=== PATIENT | female | born 1930 | race Caucasian/White ===

== ENCOUNTER 2016-08-16 10:40 | Emergency (ER) | payer OTHER ==
[~2016-08-16] VITALS: Ht 167.6 cm; Wt 71.7 kg
[~2016-08-16 10:40] MED LIST: ACET-1256 PO; ALEN70TA4 PO; AMLO-110 PO; ASPI81TA28 PO; CHOL1000 PO; DIPH-437 PO; FLUO0.0566 TOP; FOLI1TAB7 PO; FURO-85 PO; HYDR-5688 PO; ONDA8TAB6 PO; OXYB10TA PO; VOLTAREN GEL TOP
[2016-08-16 10:50] VITALS: TEMP 36.6; Ht 167.6 cm; Wt 71.7 kg
[2016-08-16 11:30] VITALS: O2SAT 96
--- NOTE | 2016-08-16 11:34 | EMERGENCY ROOM VISIT NOTE ---
History Report prepared by Britni: Dean Dc Under the Supervision of: Dr. Brandon Her D.O. First contact with patient: 10:58 Chief Complaint: CONFUSION Stated Complaint: SWELLING, CONFUSION, BREATHING Nursing Triage Summary: pt reports her arthritis has flared up . daughter states legs are swollen and hot to touch. daughtere states mother told her this am had difficulty bretahing . pt denies now states was stuffed up. left shoulder pain with arthritis History of Present Illness The patient is a 86 year old female who presents to the Emergency Room with complaints of bilateral upper and lower extremity swelling starting a few days ago. The patient currently denies any pain. As per daughter, the patient's legs are hot to touch. She has a history of edema. The patient states that she has been taking her Lasix as prescribed but the daughter is unsure. The patient also reports a decreased frequency of urination. As per daughter, the patient started having some difficulty breathing this morning. The patient states that she has a runny nose and some nasal congestion. She denies any shortness of breath with lying down flat. She took 2 Tylenol pills today. She denies any changes in appetite. She reports increased tiredness but was awake all last night. The patient denies fever, headache, chest, pain, nausea, vomiting, diarrhea, or any other complaints. The patient has a history of dementia. Source of History: patient, family (daughter) Onset: a few days ago Position: other (bilateral upper and lower extremities) Symptom Intensity: No pain Quality: other (swelling) Associated Symptoms: + SOB, No chest pain, No fevers, No headache, No nausea , No vomiting Review of Systems See HPI for pertinent positives & negatives. A total of 10 systems reviewed and were otherwise negative. Past Medical & Surgical Medical Problems: (1) Dementia (2) HTN (hypertension) (3) Pernicious anemia (4) Rheumatoid arthritis Surgical Problems: (1) History of tonsillectomy (2) History of total left hip arthroplasty Family History Depression FHx: cancer Social History Smoking Status: Never Smoker Alcohol Use: none Drug Use: none Marital Status: Housing Status: lives alone Occupation Status: retired Current/Historical Medications Scheduled Acetaminophen/Diphenhydramine (Tylenol Pm), 1 TAB PO HS Alendronate Sodium (Fosamax), 1 TAB PO WK Amlodipine (Norvasc), 5 MG PO QAM Aspirin (Aspirin Ec), 81 MG PO QPM Cholecalciferol (Vitamin D3), 1 TAB PO QAM Docusate Sodium (Colace), 1 CAP PO BID Folic Acid (Folvite), 1 TAB PO QAM Furosemide (Lasix), 20 MG PO QAM Hydrocodone/Acetaminophen 5MG/325MG ([place] 5MG/325MG), 1 TABLET PO HS Oxybutynin Chloride Er (Ditropan Xl), 10 MG PO QAM Scheduled PRN Acetaminophen (Tylenol), 1,000 MG PO TID PRN for RN Ondansetron Hcl (Zofran), 8 MG PO Q8 PRN for Nausea Miscellaneous Medications Diclofenac Sodium (Topical) (Voltaren 1% Top Gel), 1 DOSE TOP Allergies Coded Allergies: Diphenhydramine (Verified Adverse Reaction, Unknown, "increases dementia" , 08/16/16) Physical Exam Vital Signs Date Time Temp Pulse Resp B/P Pulse Ox O2 Delivery O2 Flow Rate FiO2 08/16/16 13:59 89 18 144/82 94 Room Air 08/16/16 13:23 70 18 166/76 93 Room Air 08/16/16 12:49 68 18 175/86 96 Room Air 08/16/16 12:01 73 08/16/16 11:30 96 Room Air 08/16/16 10:50 36.6 73 18 156/77 93 Room Air Physical Exam GENERAL: Patient is awake, alert, and in no acute distress. Patient is resting comfortably and showing no signs of anxiety EYES: The conjunctivae are clear. The pupils are round and reactive. EARS, NOSE, MOUTH AND THROAT: The nose is without any evidence of any deformity. Mucous membranes are moist tongue is midline NECK: The neck is nontender and supple. RESPIRATORY: Lung sounds are diminished with rales at both bases, no tachypnea or conversational dyspnea appreciated. CARDIOVASCULAR: Regular rate and rhythm noted there no murmurs rubs or gallops normal S1 normal S2 GASTROINTESTINAL: The abdomen is soft. Bowel sounds are present in all quadrants. Abdomen is nontender MUSCULOSKELETAL/EXTREMITIES: There is no evidence of gross deformity full range of motion is noted in the hips and shoulders SKIN: There is no obvious evidence of any rash. There are no petechiae, pallor or cyanosis noted. Pedal edema bilaterally. No erythema, calf tenderness, or signs of cellulitis noted. NEUROLOGIC: Patient is awake alert and oriented to person, place, and situation , strength is symmetric patellar reflexes are 2+ bilaterally Medical Decision & Procedures ER Provider Diagnostic Interpretation: X-ray results as stated below per interpretation by me and the radiologist. LEFT HAND 3 VIEWS CLINICAL HISTORY: Left hand swelling. FINDINGS: 3 views of the left hand are compared to study dated . The skeletal structures are osteopenic. A ring is present on the fourth finger. No fracture is identified. Advanced arthritic change is present at the radiocarpal articulation and throughout the intercarpal and carpometacarpal joints. This is greatest in the first digit. Mild osteoarthritic change is present in the interphalangeal joints with minimal erosive change present in the distal interphalangeal joints of the second through fourth fingers. A bony erosion is identified in the first metacarpal head. Diffuse soft tissue edema is present throughout the hand. No radiodense foreign body is identified. No subcutaneous gas is seen. IMPRESSION: 1. Diffuse soft tissue edema. No acute fracture is identified. 2. Osteopenia and advanced arthritic change as above with foci of erosion. This is similar in appearance to the 09/01/2015 examination. Electronically signed by: Bhavesh Shannon M.D. 08/16/2016 12:51 PM Dictated Date/Time: 08/16/2016 12:48 PM CHEST ONE VIEW PORTABLE CLINICAL HISTORY: Dyspnea. Respiratory distress. COMPARISON STUDY: Chest radiograph June 18, 2016. FINDINGS: No pneumothorax or pleural effusion is present. Cardiomediastinal silhouette is stable. Minimal bibasilar opacities favor atelectasis. There is no radiographic evidence of pulmonary edema. IMPRESSION: Pulmonary vascular congestion without overt pulmonary edema. Electronically signed by: Lex Franco M.D. 08/16/2016 12:48 PM Dictated Date/Time: 08/16/2016 12:46 PM Laboratory Results 08/16/16 11:42 Red Blood Count 3.59, Mean Corpuscular Volume 90.8, Mean Corpuscular Hemoglobin 27.9, Mean Corpuscular Hemoglobin Concent 30.7, Mean Platelet Volume 8.6, Neutrophils (%) (Auto) 62.7, Lymphocytes (%) (Auto) 19.5, Monocytes (%) (Auto) 12.3, Eosinophils (%) (Auto) 4.7, Basophils (%) (Auto) 0.7, Neutrophils # (Auto ) 4.65, Lymphocytes # (Auto) 1.45, Monocytes # (Auto) 0.91, Eosinophils # (Auto ) 0.35, Basophils # (Auto) 0.05 08/16/16 11:42 Test 08/16/16 11:42 08/16/16 12:45 White Blood Count 7.42 K/uL (4.8-10.8) Red Blood Count 3.59 M/uL (4.2-5.4) Hemoglobin 10.0 g/dL (12.0-16.0) Hematocrit 32.6 % (37-47) Mean Corpuscular Volume 90.8 fL (80-100) Mean Corpuscular Hemoglobin 27.9 pg (25-34) Mean Corpuscular Hemoglobin Concent 30.7 g/dl (32-36) Platelet Count 364 K/uL (130-400) Mean Platelet Volume 8.6 fL (7.4-10.4) Neutrophils (%) (Auto) 62.7 % Lymphocytes (%) (Auto) 19.5 % Monocytes (%) (Auto) 12.3 % Eosinophils (%) (Auto) 4.7 % Basophils (%) (Auto) 0.7 % Neutrophils # (Auto) 4.65 K/uL (1.4-6.5) Lymphocytes # (Auto) 1.45 K/uL (1.2-3.4) Monocytes # (Auto) 0.91 K/uL (0.11-0.59) Eosinophils # (Auto) 0.35 K/uL (0-0.5) Basophils # (Auto) 0.05 K/uL (0-0.2) RDW Standard Deviation 46.1 fL (36.4-46.3) RDW Coefficient of Variation 13.8 % (11.5-14.5) Immature Granulocyte % (Auto) 0.1 % Immature Granulocyte # (Auto) 0.01 K/uL (0.00-0.02) Prothrombin Time 10.8 SECONDS (9.0-12.0) Prothromb Time International Ratio 1.0 (0.9-1.1) Activated Partial Thromboplast Time 28.7 SECONDS (21.0-31.0) Partial Thromboplastin Ratio 1.1 Anion Gap 8.0 mmol/L (3-11) Est Creatinine Clear Calc Drug Dose 59.1 ml/min Estimated GFR () 91.2 Estimated GFR (Non- 78.6 BUN/Creatinine Ratio 20.6 (10-20) Calcium Level 8.9 mg/dl (8.5-10.1) Total Bilirubin 0.2 mg/dl (0.2-1) Aspartate Amino Transf (AST/SGOT) 11 U/L (15-37) Alanine Aminotransferase (ALT/SGPT) 13 U/L (12-78) Alkaline Phosphatase 82 U/L (45-117) Troponin I < 0.015 ng/ml (0-0.045) Pro-B-Type Natriuretic Peptide 666 pg/ml (0-1800) Total Protein 6.8 gm/dl (6.4-8.2) Albumin 2.6 gm/dl (3.4-5.0) Globulin 4.2 gm/dl (2.5-4.0) Albumin/Globulin Ratio 0.6 (0.9-2) Urine Color YELLOW Urine Appearance CLEAR (CLEAR) Urine pH 6.5 (4.5-7.5) Urine Specific [place] 1.003 (1.000-1.030) Urine Protein NEG (NEG) Urine Glucose (UA) NEG (NEG) Urine Ketones NEG (NEG) Urine Occult Blood NEG (NEG) Urine Nitrite NEG (NEG) Urine Bilirubin NEG (NEG) Urine Urobilinogen NEG (NEG) Urine Leukocyte Esterase NEG (NEG) Laboratory results per my review. Medications Administered Medications (Trade) Dose Ordered Sig/Ralph Route Start Time Stop Time Status Last Admin Dose Admin Furosemide (Lasix Inj) 40 mg NOW STAT IV 08/16/16 13:07 08/16/16 13:08 DC 08/16/16 13:22 40 MG ECG Indication: SOB/dyspnea, other (Bilateral upper and lower extremity swelling) Rate (beats per minute): 68 Rhythm: normal sinus Findings: no ectopy, other (No acute ST segment abnormalities) Comparison ECG Date: June 17, 2016 Change: no significant change ED Course 1058: The patient was evaluated in room C12B. A complete history and physical examination were performed. 1307: Lasix Inj 40 mg IV 1345: Upon reevaluation, the patient is resting comfortably. I discussed the results and treatment plan with the patient and her daughter. They verbalized agreement of the treatment plan. She was discharged home. Medical Decision Prior records/ancillary studies reviewed. Triage Nursing notes reviewed. Additional history obtained from the family. Differential diagnosis: Etiologies such as infections, reactive airway disease, pneumonia, pneumothorax , COPD, CHF, cardiac ischemia, pulmonary embolism, musculoskeletal, gastrointestinal, as well as others were entertained. The patient is an 86-year-old female who presents to the emergency department for an evaluation of peripheral edema. This involves her legs as well as her upper extremities. Her left arm appears to be involved but there is no discoloration or tenderness. The patient was treated with IV Lasix in the emergency department. I discussed the patient's laboratory radiographic studies with her. She is currently on Lasix and states that she is compliant with this medication. I discussed the patient's condition with her and her daughter. They were encouraged to follow-up with the primary care physician this week for reevaluation. They were encouraged to rest and avoid any strenuous activity. There are also encouraged to return the emergency Department immediately if symptoms change worsen or the need arises. Impression Primary Impression: Peripheral edema Scribe Attestation The scribe's documentation has been prepared under my direction and personally reviewed by me in its entirety. I confirm that the note above accurately reflects all work, treatment, procedures, and medical decision making performed by me. Departure Information Dispostion Home / Self-Care Referrals Moose Wood M.D. (MEDICAL) (PCP) Forms HOME CARE DOCUMENTATION FORM, IMPORTANT VISIT INFORMATION, WORK / SCHOOL INSTRUCTIONS Patient Instructions ED Leg Swelling Bilateral, My [facility] [address] Additional Instructions Call your family to schedule a follow-up appointment. Rest and avoid any strenuous activity. Continue all medications as prescribed. You may require an echocardiogram to further evaluate the cause of your edema.
[2016-08-16] MEDS ORDERED: DICL1GEL12 TOP (11:57)
[2016-08-16] MEDS ORDERED: DOCU-94 PO (11:58)
[2016-08-16 12:09] LABS: BASO % 0.7 %; BASO ABS # 0.05 K/uL (0-0.2); COMPLETE YES; EOS % 4.7 %; HEMATOCRIT 32.6 % (37-47); IG% 0.1 %; LYMPH % 19.5 %; LYMPH ABS # 1.45 K/uL (1.2-3.4); MEAN CELL VOLUME 90.8 fL (80-100); MEAN CORPUSCULAR HEMOGLOBIN 27.9 pg (25-34); MEAN CORPUSCULAR HGB CONC 30.7 g/dl (32-36); MEAN PLATELET VOLUME 8.6 fL (7.4-10.4); MONO % 12.3 %; NEUT % 62.7 %; PLATELET COUNT 364 K/uL (130-400); RED BLOOD COUNT 3.59 M/uL (4.2-5.4); WHITE BLOOD COUNT 7.42 K/uL (4.8-10.8)
[2016-08-16 12:12] LABS: PARTIAL THROMBOPLASTIN RATIO 1.1; PROTHROMBIN TIME (PATIENT) 10.8 SECONDS (9.0-12.0)
[2016-08-16 12:15] LABS: ALT/SGPT 13 U/L (12-78); AST/SGOT 11 U/L (15-37); BLOOD UREA NITROGEN 14 mg/dl (7-18); BUN/CREATININE RATIO 20.6 (10-20); CALCIUM 8.9 mg/dl (8.5-10.1); CARBON DIOXIDE 27 mmol/L (21-32); CHLORIDE 103 mmol/L (98-107); CREATININE 0.68 mg/dl (0.60-1.20); GLUCOSE 97 mg/dl (70-99); POTASSIUM 4.5 mmol/L (3.5-5.1); SODIUM 138 mmol/L (136-145)
[2016-08-16 12:20] LABS: ALB/GLOB RATIO 0.6 (0.9-2); ALKALINE PHOSPHATASE 82 U/L (45-117)
--- NOTE | 2016-08-16 12:49 | DIAGNOSTIC IMAGING REPORT ---
CHEST ONE VIEW PORTABLE CLINICAL HISTORY: Dyspnea. Respiratory distress. COMPARISON STUDY: Chest radiograph June 18, 2016. FINDINGS: No pneumothorax or pleural effusion is present. Cardiomediastinal silhouette is stable. Minimal bibasilar opacities favor atelectasis. There is no radiographic evidence of pulmonary edema. IMPRESSION: Pulmonary vascular congestion without overt pulmonary edema. Electronically signed by: Lex Franco M.D. 08/16/2016 12:48 PM Dictated Date/Time: 08/16/2016 12:46 PM
--- NOTE | 2016-08-16 12:53 | DIAGNOSTIC IMAGING REPORT ---
LEFT HAND 3 VIEWS CLINICAL HISTORY: Left hand swelling. FINDINGS: 3 views of the left hand are compared to study dated . The skeletal structures are osteopenic. A ring is present on the fourth finger. No fracture is identified. Advanced arthritic change is present at the radiocarpal articulation and throughout the intercarpal and carpometacarpal joints. This is greatest in the first digit. Mild osteoarthritic change is present in the interphalangeal joints with minimal erosive change present in the distal interphalangeal joints of the second through fourth fingers. A bony erosion is identified in the first metacarpal head. Diffuse soft tissue edema is present throughout the hand. No radiodense foreign body is identified. No subcutaneous gas is seen. IMPRESSION: 1. Diffuse soft tissue edema. No acute fracture is identified. 2. Osteopenia and advanced arthritic change as above with foci of erosion. This is similar in appearance to the 09/01/2015 examination. Electronically signed by: Bhavesh Shannon M.D. 08/16/2016 12:51 PM Dictated Date/Time: 08/16/2016 12:48 PM
[2016-08-16] MEDS ORDERED: FUROSEMIDE 40 MG/4 ML VIAL IV STA (13:07)
[2016-08-16 13:22] LABS: URINE APPEARANCE CLEAR (CLEAR); URINE BILIRUBIN NEG (NEG); URINE COLOR YELLOW; URINE NITRITE NEG (NEG); URINE PH 6.5 (4.5-7.5); URINE SPECIFIC GRAVITY 1.003 (1.000-1.030); UROBILINOGEN NEG (NEG)
[2016-08-16 13:31] LABS: MANUAL MICROSCOPIC REQUIRED? NO; REVIEW REQ? NO
[2016-08-16 13:59] VITALS: BP 144/82; PULSE 89; O2SAT 94
[2017-01-26] MEDS ORDERED: ONDA8TAB13 SL (13:43)
[2017-01-26] MEDS ORDERED: FURO-85 PO (13:43)
[2017-01-26] MEDS ORDERED: GLUC1CAP35 PO (13:43)
[2017-01-30] MEDS ORDERED: MLXESC PO (10:18)
[2017-01-30] MEDS ORDERED: LPT20 PO (10:18)
[2017-01-30] MEDS ORDERED: MOMLX PO (10:18)
[2017-01-30] MEDS ORDERED: HYDR-5688 PO ×2 (10:18→10:21)
[2017-01-30] MEDS ORDERED: PLV75 PO (10:18)
[2017-01-30] MEDS ORDERED: DLC5 PO (10:18)
== END 2016-08-16 14:01 | disposition home or self-care (01) ==
LOC: C.EDB 10:41 → C.EDC 14:01
DX: R60.0 Localized edema (principal); F03.90 Unspecified dementia, unspecified severity, without behavioral disturbance, psychotic disturbance, mood disturbance, and anxiety; I10 Essential (primary) hypertension; D51.0 Vitamin B12 deficiency anemia due to intrinsic factor deficiency; M06.9 Rheumatoid arthritis, unspecified; Z79.82 Long term (current) use of aspirin

== ENCOUNTER 2017-01-26 10:48 | Inpatient (IN) | payer OTHER ==
[~2017-01-26] VITALS: Ht 172.7 cm; Wt 65.3 kg
[~2017-01-26 10:48] MED LIST changes: +DICL1GEL12 TOP; +DOCU-94 PO; -FLUO0.0566 TOP; -ONDA8TAB6 PO; -VOLTAREN GEL TOP
[2017-01-26] MEDS ORDERED: SODIUM CHLORIDE 0.9% 1000ML 1,000 ML IV STA (11:45)
[2017-01-26 12:22] LABS: BASO % 0.5 %; BASO ABS # 0.05 K/uL (0-0.2); COMPLETE YES; EOS % 3.3 %; HEMATOCRIT 33.2 % (37-47); IG% 0.3 %; LYMPH % 12.1 %; LYMPH ABS # 1.18 K/uL (1.2-3.4); MEAN CELL VOLUME 88.3 fL (80-100); MEAN CORPUSCULAR HEMOGLOBIN 27.1 pg (25-34); MEAN CORPUSCULAR HGB CONC 30.7 g/dl (32-36); MEAN PLATELET VOLUME 8.3 fL (7.4-10.4); MONO % 12.2 %; NEUT % 71.6 %; PLATELET COUNT 527 K/uL (130-400); RED BLOOD COUNT 3.76 M/uL (4.2-5.4); WHITE BLOOD COUNT 9.75 K/uL (4.8-10.8)
--- NOTE | 2017-01-26 12:43 | DIAGNOSTIC IMAGING REPORT ---
HEAD WITHOUT CONTRAST (CT) CT DOSE: 614.27 mGy.cm HISTORY: Mental status change EVALUATE WEAKNESS TECHNIQUE: Multiaxial CT images of the head were performed without the use of intravenous contrast. A dose lowering technique was utilized adhering to the principles of ALARA. Comparison: 01/16/2015 Findings: The paranasal sinuses and mastoid air cells are clear. Persistent ventricular prominence. This is unchanged from the prior exam is considered chronic. Possible small subacute infarct posterior aspect left internal capsule. This measures approximately 1 cm. No evidence for acute intracranial hemorrhage. Chronic small vessel change throughout. Impression: 1. 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 Moderate chronic small vessel change. Chronic ventricular prominence. 2. No evidence for acute intracranial hemorrhage The above report was generated using voice recognition software. It may contain grammatical, syntax or spelling errors. Electronically signed by: Vitor Valdes M.D. 01/26/2017 12:41 PM Dictated Date/Time: 01/26/2017 12:38 PM
--- NOTE | 2017-01-26 12:44 | DIAGNOSTIC IMAGING REPORT ---
CHEST ONE VIEW PORTABLE CLINICAL HISTORY: EVALUATE WEAKNESS dyspnea COMPARISON STUDY: 08/16/2016 FINDINGS: The bones soft tissues and hemidiaphragms are normal. The cardiomediastinal silhouette is normal. The lungs are clear. The pulmonary vasculature is normal. IMPRESSION: Negative chest. The above report was generated using voice recognition software. It may contain grammatical, syntax or spelling errors. Electronically signed by: Vitor Valdes M.D. 01/26/2017 12:43 PM Dictated Date/Time: 01/26/2017 12:42 PM
[2017-01-26 12:45] LABS: ALKALINE PHOSPHATASE 88 U/L (45-117); ALT/SGPT 8 U/L (12-78); AST/SGOT 13 U/L (15-37); BLOOD UREA NITROGEN 19 mg/dl (7-18); BUN/CREATININE RATIO 27.7 (10-20); CALCIUM 9.5 mg/dl (8.5-10.1); CARBON DIOXIDE 28 mmol/L (21-32); CHLORIDE 106 mmol/L (98-107); GLUCOSE 99 mg/dl (70-99); POTASSIUM 4.4 mmol/L (3.5-5.1); SODIUM 141 mmol/L (136-145)
[2017-01-26 13:23] LABS: INR 1.1 (0.9-1.1); PARTIAL THROMBOPLASTIN RATIO 1.2; PROTHROMBIN TIME (PATIENT) 11.5 SECONDS (9.0-12.0)
[2017-01-26] MEDS ORDERED: ONDA8TAB13 SL ×2 (13:43)
[2017-01-26] MEDS ORDERED: GLUC1CAP35 PO ×2 (13:43)
[2017-01-26] MEDS ORDERED: FURO-85 PO ×2 (13:43)
[2017-01-26] MEDS ORDERED: ONDANSETRON INJ 2 MG/ML 2 ML VIAL IV PRN (13:45)
[2017-01-26] MEDS ORDERED: PHARMACIST DISCHARGE MED REC CONSULT PRN (13:45)
[2017-01-26] MEDS ORDERED: MAGNESIUM HYDROXIDE SUSP 30 ML UDC PO PRN (13:45)
[2017-01-26] MEDS ORDERED: ALUMINUM/MAGNESIUM/SIMETH (MAALOX MAX) 30 ML UDC PO PRN (13:45)
[2017-01-26] MEDS ORDERED: CLOPIDOGREL BISULFATE 75 MG TAB PO SCH (13:45)
[2017-01-26] MEDS ORDERED: NITROGLYCERIN 0.4 MG SL PER TAB CHARGE SL PRN (13:45)
[2017-01-26] MEDS ORDERED: ACETAMINOPHEN 325 MG TAB PO PRN (13:45)
[2017-01-26] MEDS ORDERED: ONDANSETRON 8MG OD TAB SL PRN (14:00)
[2017-01-26] MEDS ORDERED: FUROSEMIDE 20 MG TAB PO PRN (14:00)
[2017-01-26] MEDS ORDERED: ACETAMINOPHEN 500 MG TAB PO PRN (14:00)
[2017-01-26 14:15] VITALS: BP 161/71; PULSE 80; TEMP 36.8; O2SAT 97; Ht 172.7 cm; Wt 65.3 kg
--- NOTE | 2017-01-26 14:40 | HISTORY & PHYSICAL EXAMINATION ---
DATE OF ADMISSION: 01/26/2017 CHIEF COMPLAINT: Fall. HISTORY OF PRESENT ILLNESS: This 86-year-old female with past medical history significant for some vascular dementia, hypertension, history of squamous cell carcinoma, history of vitamin D deficiency, rheumatoid arthritis involving multiple sites, osteoarthritis who lives alone but has a total of 5 caregivers and son lives close by. Only a couple of nights in a week she does not have any caregiver,.Patient was brought in because today morning she fell down and had some bruises on the right shoulder. In the ER, the CAT scan showed small subacute left post-internal capsular infarct. The patient currently alert and awake and oriented x2. Does not know the date. Otherwise, she is comfortable. Denies any headaches, no blurred vision, no dizziness, no nausea, no vomiting, no chest pain, no shortness of breath, no cough, no abdominal pain. Normal bowel and bladder movements. Appetite is not that great. As per the caregivers, the patient lost a lot of weight since last 2 weeks as she is n ot eating much. Patient uses cane for ambulating and as per the caregiver she is very wobbly. Currently resting comfortably and hemodynamically stable. ALLERGIES: No known drug allergies. PAST MEDICAL HISTORY: As mentioned above. PAST SURGICAL HISTORY: Dilatation and curettage, tonsillectomy, total hip replacement in 2016. MEDICATIONS: The patient is on Ditropan XL 10 mg p.o. daily, glucosamine chondroitin 1 capsule p.o. t.i.d., Lasix 20 mg every other day p.r.n., folic acid 1 mg p.o. daily, diclofenac sodium gel 1% gel daily on shoulders as needed, amlodipine 5 mg p.o. daily, aspirin enteric coated 81 mg p.o. daily, Zofran 8 mg p.o. t.i.d. p.r.n., Fosamax 70 mg p.o. weekly, vitamin D 1000 units p.o. daily, acetaminophen 1000 mg p.o. q. 6 hours p.r.n., Percocet 5/325 mg 1 tablet t.i.d. FAMILY HISTORY: Her father of old age at 90s. Mother of old age 90s. SOCIAL HISTORY: Never smoked. No alcohol use. No drug use. . REVIEW OF SYMPTOMS: As per HPI. Rest of review of symptoms negative. PHYSICAL EXAMINATION: GENERAL: The patient is old and frail, not in distress. VITAL SIGNS: Temperature 36.7, pulse 74, respiratory rate 18, blood pressure 155/90, oxygen 92% room air. HEAD, EYES, EARS, NOSE, AND THROAT: No pallor, no icterus. Pupils equal, round, and reactive to light. NECK: No JVD, no neck masses, no carotid bruits. CARDIOVASCULAR: S1, S2 heard, regular rate and rhythm, no murmur, no gallop. RESPIRATORY SYSTEM: Normal AP diameter. No accessory muscle use. No wheezing, no crackles. ABDOMEN: Soft, bowel sounds present, nontender. No distention. CENTRAL NERVOUS SYSTEM: Cranial nerves II-XII grossly intact. Nonfocal. [id number] test normal. Could not do pronator drift as patient could not lift her hands because of the shoulder pain. EXTREMITIES: Lower extremity edema is present and slightly erythematous. LABORATORY DATA: Sodium 141, potassium 4.4, chloride 106, bicarbonate 28, BUN 19, creatinine 0.7, serum glucose 99, calcium 9.5, total bilirubin 0.2, AST 13, ALT 8, alkaline phosphatase 88. WBC 9.7, hemoglobin 10.2, hematocrit 33.2, platelets 527. CAT scan of the head shows probable acute versus subacute infarct left posterior internal capsule, moderate chronic small vessel change, chronic ventricular prominence. Chest x-ray negative chest. EKG: Shows normal sinus rhythm with rate of 74. No acute ST changes seen. ASSESSMENT AND PLAN: This is an 86-year-old female who presents with fall and possible cerebrovascular accident. 1. Fall, possible acute subacute left posterior intercapsular cerebrovascular accident. Currently, the patient is stable. We will do full stroke workup with MRI of the head, echo, carotid Dopplers. Neuro checks. Neurology consult. PT, OT and speech evaluation. We will place on mechanical soft diet for now and gentle fluids. The patient is already on aspirin. We will add Plavix. Close monitor on tele floor. 2. History of hypertension. Goal below 150/90. Continue amlodipine. We will monitor the blood pressure in the hospital. 3. History of rheumatoid arthritis involving multiple sites. and History of osteoarthritis. Continue home pain medications. PT, OT. The patient may need rehab placement. 4. Bilateral lower extremity edema. Follow the echocardiogram. The patient is on Lasix every other day as needed, currently on gentle fluids. Monitor for volume overload. The patient was also treated for cellulitis in the past. We will empirically start on Rocephin and also follow the urinalysis and urine cultures. 5. Deep venous thrombosis prophylaxis, SCDs for now. 6. Disposition. Admit to tele floor. PT and OT prior to discharge. Social Service to help with discharge planning. 7. CODE STATUS. FULL CODE ONLY IF THERE IS A CHANCE OF RECOVERY. Son Homero is her power of building construction contractor. His phone number is [phone]. [facility] [facility]
--- NOTE | 2017-01-26 15:15 | DIAGNOSTIC IMAGING REPORT ---
THORACIC SPINE 3 VIEWS ROUTINE CLINICAL HISTORY: Mid t spine bruising on left lat. COMPARISON STUDY: Chest CT October 29, 2014. FINDINGS: There is mild S-shaped curvature of the thoracic spine. No acute thoracic spine fracture is identified. There is moderate multilevel disc space narrowing and osteophytosis of the thoracic spine. IMPRESSION: 1. No acute thoracic spine fracture. 2. Mild S-shaped curvature of the thoracic spine. 3. 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 Electronically signed by: Lex Franco M.D. 01/26/2017 3:13 PM Dictated Date/Time: 01/26/2017 3:09 PM
--- NOTE | 2017-01-26 15:39 | DIAGNOSTIC IMAGING REPORT ---
CAROTID DOPPLER NECK ART HISTORY: Mental status change Stroke COMPARISON: None. TECHNIQUE: Real-time, grayscale, and color Doppler sonography of the carotid arteries was performed. Imaging reviewed in the transverse and longitudinal planes. All measurements were calculated based on NASCET criteria. FINDINGS: Antegrade flow is seen in the bilateral vertebral arteries. The brachial pressures are hemodynamically similar. The peak systolic velocity within the right ICA is 97. The right systolic ratio is 1.49. The peak systolic velocity within the left ICA is 101. The left systolic ratio is 1.23. IMPRESSION: No hemodynamically significant stenosis seen within the carotid arteries. The above report was generated using voice recognition software. It may contain grammatical, syntax or spelling errors. Electronically signed by: Vitor Valdes M.D. 01/26/2017 3:38 PM Dictated Date/Time: 01/26/2017 3:37 PM
--- NOTE | 2017-01-26 15:52 | DIAGNOSTIC IMAGING REPORT ---
LEFT LOWER EXTREMITY VENOUS DOPPLER CLINICAL HISTORY: Left lower extremity swelling. COMPARISON STUDY: Bilateral lower extremity venous Doppler June 17, 2016. TECHNIQUE: Sonography of the deep venous system of the left lower extremity was performed. Compression and augmentation were evaluated. FINDINGS: The left common femoral, superficial femoral and popliteal veins were compressible. Augmentation was normal. Flow was shown within the deep calf vessels. IMPRESSION: No evidence of deep venous thrombus within the left lower extremity. Electronically signed by: Lex Franco M.D. 01/26/2017 3:51 PM Dictated Date/Time: 01/26/2017 3:50 PM
[2017-01-26] MEDS ORDERED: CEFTRIAXONE SOD INJ 1 GM in DEXTROSE 5% ADD-VANTAGE 50ML 50 ML IV SCH (16:30)
[2017-01-26] MEDS: HYDROCODONE/ACETAMOPHEN 5/325MG TAB PO SCH ×2 (16:57→20:38)
[2017-01-26] MEDS: SODIUM CHLORIDE 0.9% 1000ML 1,000 ML IV SCH (16:57)
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
[2017-01-26 19:12] VITALS: BP 152/98; PULSE 78; TEMP 36.7; O2SAT 96
[2017-01-26 20:00] VITALS: O2SAT 96
[2017-01-26] MEDS: GLUCOSAMINE SULFATE 500 MG CAP PO SCH (20:36)
[2017-01-26] MEDS: ASPIRIN 81 MG ECTAB PO SCH (20:36)
--- NOTE | 2017-01-26 22:17 | DIAGNOSTIC IMAGING REPORT ---
ORBIT RADIOGRAPHS 3 VIEWS HISTORY: pre-MRI screening. COMPARISON: None. FINDINGS: There are no radiopaque foreign bodies identified within the orbits. IMPRESSION: No radiopaque foreign bodies identified within the orbits. Electronically signed by: Keith Aldana M.D. 01/26/2017 10:15 PM Dictated Date/Time: 01/26/2017 10:15 PM
[2017-01-26 23:14] VITALS: BP_SYST 107; BP_SYST 151; BP_DIAS 54; BP_DIAS 69; PULSE 61; PULSE 72; TEMP 36.4; TEMP 36.7; O2SAT 94; O2SAT 95
[2017-01-27] MEDS: SODIUM CHLORIDE 0.9% 1000ML 1,000 ML IV SCH ×2 (03:25→20:47)
[2017-01-27 03:27] LABS: HEMATOCRIT 32.8 % (37-47); MEAN CELL VOLUME 87.7 fL (80-100); MEAN CORPUSCULAR HEMOGLOBIN 26.7 pg (25-34); MEAN CORPUSCULAR HGB CONC 30.5 g/dl (32-36); MEAN PLATELET VOLUME 7.9 fL (7.4-10.4); PLATELET COUNT 459 K/uL (130-400); RED BLOOD COUNT 3.74 M/uL (4.2-5.4); WHITE BLOOD COUNT 8.35 K/uL (4.8-10.8)
[2017-01-27 03:45] VITALS: BP 161/76; PULSE 74; TEMP 36.8; O2SAT 95
[2017-01-27 03:51] LABS: BASO % 0.5 %; BASO ABS # 0.04 K/uL (0-0.2); COMPLETE YES; IG% 0.2 %; LYMPH % 12.6 %; LYMPH ABS # 1.05 K/uL (1.2-3.4); MONO % 9.7 %
[2017-01-27 03:58] LABS: BLOOD UREA NITROGEN 11 mg/dl (7-18); BUN/CREATININE RATIO 23.6 (10-20); CALCIUM 8.9 mg/dl (8.5-10.1); CARBON DIOXIDE 27 mmol/L (21-32); CHLORIDE 109 mmol/L (98-107); CHOLESTEROL 108 mg/dl (0-200); CHOLESTEROL/HDL RATIO 2.5; CREATININE 0.48 mg/dl (0.60-1.20); GLUCOSE 90 mg/dl (70-99); HDL CHOLESTEROL 44 mg/dl; LDL CHOLESTEROL CALCULATED 47 mg/dl; POTASSIUM 3.7 mmol/L (3.5-5.1); SODIUM 143 mmol/L (136-145); TRIGLYCERIDES 86 mg/dl (0-150); VERY LOW DENSITY LIPOPROT CALC 17 mg/dl
[2017-01-27 07:37] VITALS: BP 164/69; PULSE 76; TEMP 36.9; O2SAT 98
[2017-01-27 08:11] LABS: ESTIMATED AVERAGE GLUCOSE 126 mg/dl; HA1C FLAG Normal (Normal)
[2017-01-27] MEDS: DICLOFENAC SOD 1% GEL 100 GM TUBE EXT SCH (08:34)
[2017-01-27] MEDS: GLUCOSAMINE SULFATE 500 MG CAP PO SCH ×2 (08:34→20:41)
[2017-01-27] MEDS: AMLODIPINE BESYLATE 5 MG TAB PO SCH (08:35)
[2017-01-27] MEDS: OXYBUTYNIN CHLORIDE 5 MG TABCR PO SCH (08:36)
[2017-01-27] MEDS: CHOLECALCIFEROL 1000 INTER.UNIT TAB PO SCH (08:37)
[2017-01-27] MEDS: HYDROCODONE/ACETAMOPHEN 5/325MG TAB PO SCH ×2 (08:56→20:46)
[2017-01-27] MEDS: CLOPIDOGREL BISULFATE 75 MG TAB PO SCH (08:56)
[2017-01-27] MEDS ORDERED: ATORVASTATIN 20 MG TAB PO SCH (09:00)
--- NOTE | 2017-01-27 09:06 | ECHOCARDIOGRAM REPORT ---
*NOTICE TO RECEIVING CONSTITUTION PARTY AGENCY This information is strictly Confidential and protected under [place] law. [place] law prohibits you from making any further disclosure of this information unless further disclosure is expressly permitted by the written consent of the person to whom it pertains or is authorized by law. A general authorization for the release of medical or other information is not sufficient for this purpose. Hospital accepts no responsibility if the information is made available to any other person, INCLUDING THE PATIENT. Interpretation Summary * Name: TITI GRAFF Study Date: 01/26/2017 04:22 PM BP: 130/80 mmHg * Patient Location: [facility] HR: 78 * : 1930 (M/d/yyyy) Gender: Female Height: 68 in * Age: 86 yrs Ethnicity: [place] Weight: 138 lb * Ordering Physician: Shlomo Ryder * Referring Physician: Self, Referred * Performed By: Talisha Erickson RDCS * * Reason For Study: CVA * BSA: 1.7 m2 * -- Conclusions -- * The left ventricle is normal in size. * There is normal left ventricular wall thickness. * The left ventricular wall motion is normal. * Left ventricular systolic function is normal. * Ejection Fraction = >70 %. * Aortic valve sclerosis mild, without significant aortic valvular stenosis. Procedure Details * A complete two-dimensional transthoracic echocardiogram was performed (2D, M-mode, Doppler and color flow Doppler). Left Ventricle * The left ventricle is normal in size. * There is normal left ventricular wall thickness. * Ejection Fraction = >70 %. * Left ventricular systolic function is normal. * The left ventricular wall motion is normal. Right Ventricle * The right ventricle is normal in size and function. Atria * The left atrial size is normal. * Right atrial size is normal. * No ASD detected; PFO is not assessed. Mitral Valve * The mitral valve anatomy is normal. * There is no mitral valve stenosis. * There is trace mitral regurgitation. Tricuspid Valve * The tricuspid valve anatomy is normal. * There is no tricuspid stenosis. * There is trace tricuspid regurgitation. * Doppler findings do not suggest pulmonary hypertension. Aortic Valve * The aortic valve is trileaflet. * Aortic valve sclerosis mild, without significant aortic valvular stenosis. * No aortic regurgitation is present. Pulmonic Valve * The pulmonic valve is not well visualized. Great Vessels * The aortic root is normal size. Pericardium/Pleural * There is no pericardial effusion. Great Vessels * Normal inferior vena cava diameter and respiratory variation suggests normal central venous pressure. Left Ventricular Diastolic Function * Grade I diastolic dysfunction, (abnormal relaxation pattern). MMode 2D Measurements and Calculations IVSd 0.68 cm LVIDd 3.9 cm LVIDs 2.0 cm LVPWd 0.78 cm IVS/LVPW 0.87 FS 48.0 % EDV(Teich) 66.3 ml ESV(Teich) 13.3 ml EF(Teich) 80.0 % EDV(cubed) 59.8 ml ESV(cubed) 8.4 ml EF(cubed) 86.0 % LV mass(C)d 80.0 grams LV mass(C)dI 45.8 grams/m\S\2 SV(Teich) 53.0 ml SI(Teich) 30.4 ml/m\S\2 SV(cubed) 51.4 ml SI(cubed) 29.4 ml/m\S\2 Ao root diam 2.9 cm Ao root area 6.4 cm\S\2 ACS 1.9 cm LA dimension 2.6 cm asc Aorta Diam 2.8 cm LA/Ao 0.91 LVOT diam 2.0 cm LVOT area 3.2 cm\S\2 LVAd ap4 22.3 cm\S\2 LVLd ap4 7.3 cm EDV(MOD-sp4) 54.6 ml EDV(sp4-el) 58.0 ml LVAs ap4 8.8 cm\S\2 LVLs ap4 5.6 cm ESV(MOD-sp4) 11.6 ml ESV(sp4-el) 11.9 ml EF(MOD-sp4) 78.7 % EF(sp4-el) 79.5 % LVAd ap2 17.1 cm\S\2 LVLd ap2 7.1 cm EDV(MOD-sp2) 33.5 ml EDV(sp2-el) 35.1 ml LVAs ap2 6.9 cm\S\2 LVLs ap2 5.5 cm ESV(MOD-sp2) 8.2 ml ESV(sp2-el) 7.4 ml EF(MOD-sp2) 75.5 % EF(sp2-el) 78.9 % LVLd %diff -2.99 % EDV(MOD-bp) 43.7 ml LVLs %diff -1.31 % ESV(MOD-bp) 9.7 ml EF(MOD-bp) 77.9 % SV(MOD-sp4) 43.0 ml SI(MOD-sp4) 24.6 ml/m\S\2 SV(MOD-sp2) 25.3 ml SI(MOD-sp2) 14.5 ml/m\S\2 SV(MOD-bp) 34.0 ml SI(MOD-bp) 19.5 ml/m\S\2 SV(sp4-el) 46.1 ml SI(sp4-el) 26.4 ml/m\S\2 SV(sp2-el) 27.7 ml SI(sp2-el) 15.9 ml/m\S\2 Doppler Measurements and Calculations MV E max bella 83.9 cm/sec MV A max bella 98.0 cm/sec MV E/A 0.86 MV dec time 0.29 sec Ao V2 max 150.7 cm/sec Ao max PG 9.1 mmHg Ao max PG (full) 0.30 mmHg NANDINI(V,A) 3.1 cm\S\2 NANDINI(V,D) 3.1 cm\S\2 LV V1 max PG 8.8 mmHg LV V1 max 148.2 cm/sec PA V2 max 124.9 cm/sec PA max PG 6.2 mmHg PA acc slope 865.3 cm/sec\S\2 PA acc time 0.11 sec TR max bella 247.0 cm/sec PA pr(Accel) 28.3 mmHg
--- NOTE | 2017-01-27 10:24 | Progress Note ---
Subjective Date of Service: Jan 27, 2017. Subjective Pt evaluation today including: conversation w/ patient, physical exam, lab review, review of studies, review of inpatient medication list Saw/examined the patient in room 244 No problems/issues to note today States she fell after losing her balance; she hit her back currently no significant back pain Head CT on admission shows a acute to subacute internal capsule CVA Patient refusing Brain MRI +weakness +lives alone Problem List Medical Problems: (1) Peripheral edema Status: Acute Review of Systems Constitutional: + weakness, + fatigue, No fever, No chills Respiratory: No cough, No sputum, No shortness of breath Cardiac: No chest pain Abdomen: No pain, No nausea, No vomiting, No diarrhea Musculoskeletal: + joint pain (R shoulder) Female : No dysuria, No urinary frequency Neurologic: + weakness, + balance problems, No memory loss, No paralysis, No numbness/tingling, No vertigo Heme: No abnormal bleeding/bruising Medications Current Inpatient Medications Medications (Trade) Dose Ordered Sig/Ralph Route Start Time Stop Time Status Last Admin Dose Admin Atorvastatin Calcium (Lipitor Tab) 20 mg QAM PO 01/27/17 09:00 02/26/17 08:59 01/27/17 08:36 20 MG Clopidogrel Bisulfate (plAVix TAB) 75 mg QAM PO 01/27/17 09:00 02/26/17 08:59 01/27/17 08:56 75 MG Miscellaneous Information (Pharmacist Discharge Med Rec Consult) 1 ea UD PRN N/A 01/26/17 13:45 02/25/17 13:44 Sodium Chloride 1,000 ml @ 75 mls/hr [id number] IV 01/26/17 13:33 02/25/17 13:32 01/27/17 03:25 75 MLS/HR Al Hydrox/Mg Hydrox/Simethicone (Maalox Max Susp) 15 ml Q4H PRN PO 01/26/17 13:45 02/25/17 13:44 Magnesium Hydroxide (Milk Of Magnesia Susp) 30 ml Q12H PRN PO 01/26/17 13:45 02/25/17 13:44 Ondansetron HCl (Zofran Inj) 4 mg Q6H PRN IV 01/26/17 13:45 02/25/17 13:44 Nitroglycerin (Nitrostat Tab) 0.4 mg UD PRN SL 01/26/17 13:45 02/25/17 13:44 Acetaminophen (Tylenol Tab) 1,000 mg TID PRN PO 01/26/17 14:00 02/25/17 13:59 Alendronate Sodium (Fosamax Tab) 70 mg Hollins@0630 PO 01/28/17 06:30 02/27/17 06:29 Amlodipine Besylate (Norvasc Tab) 5 mg QAM PO 01/27/17 09:00 02/26/17 08:59 01/27/17 08:35 5 MG Aspirin (Ecotrin Tab) 81 mg QPM PO 01/26/17 21:00 02/25/17 20:59 01/26/17 20:36 81 MG Cholecalciferol (Vitamin D Tab) 1,000 inter.unit QAM PO 01/27/17 09:00 02/26/17 08:59 01/27/17 08:37 1,000 INTER.UNIT Diclofenac Sodium (Voltaren 1% Top Gel) 1 appln DAILY EXT 01/27/17 09:00 02/26/17 08:59 01/27/17 08:34 1 APPLN Folic Acid (Folvite Tab) 1 mg QAM PO 01/27/17 09:00 02/26/17 08:59 01/27/17 08:36 1 MG Acetaminophen/ Hydrocodone Bitart ([place] 5/325 Tab) 1 tab TID PO 01/26/17 14:00 02/09/17 13:59 01/27/17 08:56 1 TAB Oxybutynin Chloride (Ditropan-Xl Tab) 10 mg QAM PO 01/27/17 09:00 02/26/17 08:59 01/27/17 08:36 10 MG Furosemide (Lasix Tab) 20 mg Q2D PRN PO 01/26/17 14:00 02/25/17 13:59 Ondansetron HCl (Zofran Odt) 8 mg Q6H PRN SL 01/26/17 14:00 02/25/17 13:59 Glucosamine Sulfate (Glucosamine Cap) 500 mg TID PO 01/26/17 21:00 02/25/17 20:59 01/27/17 08:34 500 MG Ceftriaxone Sodium 1 gm/ Dextrose 50 ml @ 100 mls/hr DAILY@1600 IV 01/26/17 16:30 01/31/17 16:29 01/26/17 16:57 100 MLS/HR Objective Vital Signs Date Time Temp Pulse Resp B/P (MAP) Pulse Ox O2 Delivery O2 Flow Rate FiO2 01/27/17 07:37 36.9 76 18 164/69 (100) 98 01/27/17 04:00 Room Air 01/27/17 03:45 36.8 74 22 161/76 (104) 95 Room Air 01/27/17 00:00 Room Air 01/26/17 23:14 36.7 72 20 151/69 (96) 94 Room Air 01/26/17 20:00 96 Room Air 01/26/17 19:12 36.7 78 20 152/98 (116) 96 Room Air 01/26/17 14:39 78 18 130/80 97 Room Air 01/26/17 14:15 36.8 80 18 161/71 97 Room Air 01/26/17 12:48 74 01/26/17 12:46 74 18 155/90 94 Room Air 01/26/17 12:15 99 Room Air 01/26/17 12:12 76 151/69 81 143/79 82 141/60 01/26/17 11:02 36.7 73 18 155/71 94 Room Air Physical Exam General Appearance: no apparent distress, + cachetic, + thin, + pertinent finding (elderly, frail) Respiratory/Chest: chest non-tender, lungs clear, normal breath sounds, no respiratory distress, no accessory muscle use Cardiovascular: regular rate, rhythm, no murmur Abdomen: normal bowel sounds, non tender, soft Extremities: + pertinent finding (trace edema) 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, no motor/sensory deficits, alert, normal mood/affect, oriented x 3 Laboratory Results Last 24 Hours Test 01/26/17 12:10 01/26/17 12:20 01/26/17 13:02 01/26/17 19:43 White Blood Count 9.75 K/uL Red Blood Count 3.76 M/uL Hemoglobin 10.2 g/dL Hematocrit 33.2 % Mean Corpuscular Volume 88.3 fL Mean Corpuscular Hemoglobin 27.1 pg Mean Corpuscular Hemoglobin Concent 30.7 g/dl Platelet Count 527 K/uL Mean Platelet Volume 8.3 fL Neutrophils (%) (Auto) 71.6 % Lymphocytes (%) (Auto) 12.1 % Monocytes (%) (Auto) 12.2 % Eosinophils (%) (Auto) 3.3 % Basophils (%) (Auto) 0.5 % Neutrophils # (Auto) 6.98 K/uL Lymphocytes # (Auto) 1.18 K/uL Monocytes # (Auto) 1.19 K/uL Eosinophils # (Auto) 0.32 K/uL Basophils # (Auto) 0.05 K/uL RDW Standard Deviation 49.6 fL RDW Coefficient of Variation 15.3 % Immature Granulocyte % (Auto) 0.3 % Immature Granulocyte # (Auto) 0.03 K/uL Sodium Level 141 mmol/L Potassium Level 4.4 mmol/L Chloride Level 106 mmol/L Carbon Dioxide Level 28 mmol/L Anion Gap 7.0 mmol/L Blood Urea Nitrogen 19 mg/dl Creatinine 0.70 mg/dl Est Creatinine Clear Calc Drug Dose 56.0 ml/min Estimated GFR () 90.3 Estimated GFR (Non- 77.9 BUN/Creatinine Ratio 27.7 Random Glucose 99 mg/dl Calcium Level 9.5 mg/dl Total Bilirubin 0.2 mg/dl Direct Bilirubin mg/dl Aspartate Amino Transf (AST/SGOT) 13 U/L Alanine Aminotransferase (ALT/SGPT) 8 U/L Alkaline Phosphatase 88 U/L Total Protein 7.0 gm/dl Albumin 2.3 gm/dl Chemistry Specimen Hemolysis Bedside Glucose 89 mg/dl Prothrombin Time 11.5 SECONDS Prothromb Time International Ratio 1.1 Activated Partial Thromboplast Time 30.4 SECONDS Partial Thromboplastin Ratio 1.2 Troponin I < 0.015 ng/ml Test 01/27/17 03:14 White Blood Count 8.35 K/uL Red Blood Count 3.74 M/uL Hemoglobin 10.0 g/dL Hematocrit 32.8 % Mean Corpuscular Volume 87.7 fL Mean Corpuscular Hemoglobin 26.7 pg Mean Corpuscular Hemoglobin Concent 30.5 g/dl Platelet Count 459 K/uL Mean Platelet Volume 7.9 fL Neutrophils (%) (Auto) 72.0 % Lymphocytes (%) (Auto) 12.6 % Monocytes (%) (Auto) 9.7 % Eosinophils (%) (Auto) 5.0 % Basophils (%) (Auto) 0.5 % Neutrophils # (Auto) 6.01 K/uL Lymphocytes # (Auto) 1.05 K/uL Monocytes # (Auto) 0.81 K/uL Eosinophils # (Auto) 0.42 K/uL Basophils # (Auto) 0.04 K/uL RDW Standard Deviation 48.7 fL RDW Coefficient of Variation 15.1 % Immature Granulocyte % (Auto) 0.2 % Immature Granulocyte # (Auto) 0.02 K/uL Red Blood Cell Morphology Unremarkable Sodium Level 143 mmol/L Potassium Level 3.7 mmol/L Chloride Level 109 mmol/L Carbon Dioxide Level 27 mmol/L Anion Gap 7.0 mmol/L Blood Urea Nitrogen 11 mg/dl Creatinine 0.48 mg/dl Est Creatinine Clear Calc Drug Dose 81.7 ml/min Estimated GFR () 102.2 Estimated GFR (Non- 88.2 BUN/Creatinine Ratio 23.6 Random Glucose 90 mg/dl Estimated Average Glucose 126 mg/dl Hemoglobin A1c 6.0 % Calcium Level 8.9 mg/dl Troponin I < 0.015 ng/ml Triglycerides Level 86 mg/dl Cholesterol Level 108 mg/dl HDL Cholesterol 44 mg/dl LDL Cholesterol, Calculated 47 mg/dl VLDL Cholesterol, Calculated 17 mg/dl Cholesterol/HDL Ratio 2.5 Assessment and Plan This is an 86 year old female who lives alone and uses a cane for ambulation at baseline with a PMH of HTN, Rheumatoid Arthritis, hx. 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
--- NOTE | 2017-01-27 11:05 | NEUROLOGY CONSULTATION ---
DATE OF CONSULTATION: 01/27/2017 DATE OF CONSULTATION: 01/27/2017. REASON FOR CONSULTATION: Possible stroke. HISTORY OF PRESENT ILLNESS: Mrs. Forman is an 86-year-old right-handed female with a history of vascular dementia, hypertension, squamous cell carcinoma, vitamin D deficiency, rheumatoid arthritis, osteoarthritis who lives alone but has multiple caregivers. She was brought in today because she fell down and had some bruises on her right shoulder. She recalls falling. She indicates she was in a conversation with a caregiver. She had no complaints. There was no headache. No change in vision, speech, language, unilateral weakness, numbness, vertigo, dizziness. She had not had any chest pain, palpitation. She has been well. She has had some weight loss due to decreased p.o. intake. She has peripheral edema which is unchanged. She has no prior history of stroke that she is aware. She is really essentially unable to give a good medical history. PAST MEDICAL HISTORY: Otherwise, as above. PAST SURGICAL HISTORY: She does not recall. Chart says D&C, tonsillectomy, total hip replacement in 2015. MEDICATIONS: On admission, Ditropan, glucosamine chondroitin, Lasix, folic acid, diclofenac gel for the shoulders, amlodipine, aspirin 81, Zofran, Fosamax, vitamin D, Tylenol, Percocet. FAMILY HISTORY: Father of "old age" in 90s. Mother old age in 90s. Nonsmoker, nondrinker. The patient lives alone. REVIEW OF SYSTEMS: As above. I think the review of systems are somewhat inaccurate. The patient has chronic urinary incontinence. CT of the head, which I have reviewed, shows probable acute subacute infarct in the posterior internal capsule, moderate chronic vascular changes, chronic moderate ventricular prominence. Carotid ultrasound, no significant stenosis. EKG on admission, sinus rhythm. Labs on admission, white count 9.7, H&H 10/33, platelet count 527. PT 11.5, PTT 30.4. Chemistry profile: Sodium 141, potassium 4.4, BUN and creatinine 19/0.7, blood sugar 99. Transaminases normal. There has not yet been urinalysis performed. PHYSICAL EXAMINATION: VITAL SIGNS ON ADMISSION: 36.7, 73, 18, 155/71, 94%. GENERAL: The patient is awake and alert, oriented to person, place, month, but not year. She is a vague historian. There is no right/left confusion. Normal speech and language. Affect appropriate, although mildly irritable. Naming repetition, 3-step commands normal. The patient is normocephalic, atraumatic. There is some bruising on the right parathoracic region. She has fairly significant kyphosis. HEAD, EYES, EARS, NOSE, AND THROAT: Normocephalic, atraumatic. There is no temporal tenderness. Pupils are myotic but reactive. I could not reliably visualize the optic nerve. There is normal og, motility, facial sensation, facial symmetry. Speech and language are normal. Tongue is midline. MOTOR: No resting tremor. Cogwheel rigidity. Strength is limited at the shoulder secondary to joint pathology. There is, however, no drift and there are equal rapid alternating movements. Strength is full in the left lower extremity due to pain but essentially appears normal. There is symmetric reflexes. Downgoing toes. [id number] and [id number] are normal. There is intact light touch and temperature bilaterally. Reflexes symmetric. Her gait is antalgic but appropriate for age. It is not apractic nor parkinsonian. IMPRESSION: 1. Recent fall, possible left posterior limb of the internal capsule lacunar infarction. Plan MRI brain, echocardiography, assessment of vascular risks including checking lipids. At present, add Plavix to aspirin likely continue combination for 3 months and then discontinue aspirin. Permissive hypertension at present. 2. History of rheumatoid arthritis. Given fall, recommend cervical x-ray. Recommend physical therapy consultation to assess gait to determine need for inpatient rehabilitation, which I doubt. Will follow with you. MTDD
[2017-01-27 11:54] VITALS: BP 149/72; PULSE 68; TEMP 36.8; O2SAT 95
--- NOTE | 2017-01-27 13:13 | DIAGNOSTIC IMAGING REPORT ---
CERVICAL SPINE 2 OR 3 VIEWS CLINICAL HISTORY: Fall. Rheumatoid arthritis. COMPARISON STUDY: No previous studies for comparison. FINDINGS: Evaluation is suboptimal due to difficulty positioning. C7 is partially obscured. There is reversal of the normal cervical lordosis with minimal anterolisthesis of C2 on C3, C3 on C4 and C4 on C5. There is moderate to marked multilevel disc space narrowing and osteophytosis. No acute fracture is identified. IMPRESSION: 1. No cervical spine fracture identified although C7 slightly obscured on this exam. 2. Moderate to severe multilevel degenerative disc disease and facet arthrosis of the cervical spine. 3. Reversal of normal cervical lordosis with slight anterolisthesis of C2 on C3, C3 on C4 and C4 on C5. Electronically signed by: Lex Franco M.D. 01/27/2017 1:12 PM Dictated Date/Time: 01/27/2017 1:10 PM
[2017-01-27] MEDS ORDERED: CLOPIDOGREL BISULFATE 75 MG TAB PO SCH (13:45)
[2017-01-27 15:33] VITALS: BP_SYST 118; BP_SYST 134; BP_SYST 145; BP_DIAS 70; BP_DIAS 76; BP_DIAS 79; PULSE 74; PULSE 79; PULSE 86; TEMP 36.8; O2SAT 96
[2017-01-27 16:33] LABS: URINE APPEARANCE CLEAR (CLEAR); URINE BILIRUBIN NEG (NEG); URINE COLOR YELLOW; URINE NITRITE NEG (NEG); URINE SPECIFIC GRAVITY 1.008 (1.000-1.030); UROBILINOGEN NEG (NEG)
[2017-01-27 16:39] LABS: MANUAL MICROSCOPIC REQUIRED? YES; REVIEW REQ? NO
[2017-01-27 16:44] LABS: URINE RBC 0-4 /hpf (0-4)
[2017-01-27 16:45] LABS: URINE BACTERIA 1+ (NEG)
[2017-01-27 19:22] VITALS: BP 147/80; PULSE 71; TEMP 36.5; O2SAT 95
[2017-01-27 20:00] VITALS: O2SAT 95
[2017-01-27] MEDS: ASPIRIN 81 MG ECTAB PO SCH (20:42)
[2017-01-28] VITALS (13 sets, daily range): BP systolic 122–169; BP diastolic 65–78; PULSE 67–93; TEMP 36.7–37; O2SAT 90–99
[2017-01-28] MEDS: SODIUM CHLORIDE 0.9% 1000ML 1,000 ML IV SCH ×2 (05:33→11:06)
[2017-01-28 06:00] LABS: BASO % 0.3 %; BASO ABS # 0.02 K/uL (0-0.2); COMPLETE YES; EOS % 11.1 %; HEMATOCRIT 32.8 % (37-47); IG% 0.3 %; LYMPH % 11.9 %; LYMPH ABS # 0.87 K/uL (1.2-3.4); MEAN CELL VOLUME 89.4 fL (80-100); MEAN CORPUSCULAR HEMOGLOBIN 27.2 pg (25-34); MEAN CORPUSCULAR HGB CONC 30.5 g/dl (32-36); MEAN PLATELET VOLUME 8.3 fL (7.4-10.4); MONO % 8.6 %; NEUT % 67.8 %; PLATELET COUNT 449 K/uL (130-400); RED BLOOD COUNT 3.67 M/uL (4.2-5.4); WHITE BLOOD COUNT 7.32 K/uL (4.8-10.8)
[2017-01-28 06:29] LABS: BUN/CREATININE RATIO 22.8 (10-20); CALCIUM 8.3 mg/dl (8.5-10.1); CREATININE 0.47 mg/dl (0.60-1.20)
[2017-01-28] MEDS ORDERED: ALENDRONATE SODIUM 70 MG TAB PO SCH (06:30)
[2017-01-28] MEDS: GLUCOSAMINE SULFATE 500 MG CAP PO SCH ×3 (08:09→20:31)
[2017-01-28] MEDS: AMLODIPINE BESYLATE 5 MG TAB PO SCH (08:09)
[2017-01-28] MEDS: OXYBUTYNIN CHLORIDE 5 MG TABCR PO SCH (08:10)
[2017-01-28] MEDS: DICLOFENAC SOD 1% GEL 100 GM TUBE EXT SCH (08:10)
[2017-01-28] MEDS: CLOPIDOGREL BISULFATE 75 MG TAB PO SCH (08:10)
[2017-01-28] MEDS: HYDROCODONE/ACETAMOPHEN 5/325MG TAB PO SCH ×3 (08:11→20:31)
--- NOTE | 2017-01-28 08:40 | Progress Note ---
Subjective Date of Service: Jan 28, 2017. Subjective Pt evaluation today including: conversation w/ patient, physical exam, lab review, review of studies, review of inpatient medication list Saw/examined the patient in room 244 doing okay today, denies any symptoms Eager to get home Problem List Medical Problems: (1) Peripheral edema Status: Acute Review of Systems Constitutional: No fever, No chills Respiratory: No shortness of breath Cardiac: No chest pain Abdomen: No pain, No nausea, No vomiting, No diarrhea Musculoskeletal: + joint pain (chronic multiple joints) Medications Current Inpatient Medications Medications (Trade) Dose Ordered Sig/Ralph Route Start Time Stop Time Status Last Admin Dose Admin Atorvastatin Calcium (Lipitor Tab) 20 mg QAM PO 01/27/17 09:00 02/26/17 08:59 01/27/17 08:36 20 MG Clopidogrel Bisulfate (plAVix TAB) 75 mg QAM PO 01/27/17 09:00 02/26/17 08:59 01/28/17 08:10 75 MG Miscellaneous Information (Pharmacist Discharge Med Rec Consult) 1 ea UD PRN N/A 01/26/17 13:45 02/25/17 13:44 Sodium Chloride 1,000 ml @ 75 mls/hr [id number] IV 01/26/17 13:33 02/25/17 13:32 01/27/17 20:47 75 MLS/HR Al Hydrox/Mg Hydrox/Simethicone (Maalox Max Susp) 15 ml Q4H PRN PO 01/26/17 13:45 02/25/17 13:44 Magnesium Hydroxide (Milk Of Magnesia Susp) 30 ml Q12H PRN PO 01/26/17 13:45 02/25/17 13:44 Ondansetron HCl (Zofran Inj) 4 mg Q6H PRN IV 01/26/17 13:45 02/25/17 13:44 Nitroglycerin (Nitrostat Tab) 0.4 mg UD PRN SL 01/26/17 13:45 02/25/17 13:44 Acetaminophen (Tylenol Tab) 1,000 mg TID PRN PO 01/26/17 14:00 02/25/17 13:59 Alendronate Sodium (Fosamax Tab) 70 mg Hollins@0630 PO 01/28/17 06:30 02/27/17 06:29 01/28/17 06:25 70 MG Amlodipine Besylate (Norvasc Tab) 5 mg QAM PO 01/27/17 09:00 02/26/17 08:59 01/28/17 08:09 5 MG Aspirin (Ecotrin Tab) 81 mg QPM PO 01/26/17 21:00 02/25/17 20:59 01/27/17 20:42 81 MG Cholecalciferol (Vitamin D Tab) 1,000 inter.unit QAM PO 01/27/17 09:00 02/26/17 08:59 01/27/17 08:37 1,000 INTER.UNIT Diclofenac Sodium (Voltaren 1% Top Gel) 1 appln DAILY EXT 01/27/17 09:00 02/26/17 08:59 01/28/17 08:10 1 APPLN Folic Acid (Folvite Tab) 1 mg QAM PO 01/27/17 09:00 02/26/17 08:59 01/28/17 08:09 1 MG Acetaminophen/ Hydrocodone Bitart ([place] 5/325 Tab) 1 tab TID PO 01/26/17 14:00 02/09/17 13:59 01/28/17 08:11 1 TAB Oxybutynin Chloride (Ditropan-Xl Tab) 10 mg QAM PO 01/27/17 09:00 02/26/17 08:59 01/28/17 08:10 10 MG Furosemide (Lasix Tab) 20 mg Q2D PRN PO 01/26/17 14:00 02/25/17 13:59 Ondansetron HCl (Zofran Odt) 8 mg Q6H PRN SL 01/26/17 14:00 02/25/17 13:59 Glucosamine Sulfate (Glucosamine Cap) 500 mg TID PO 01/26/17 21:00 02/25/17 20:59 01/28/17 08:09 500 MG Objective Vital Signs Date Time Temp Pulse Resp B/P (MAP) Pulse Ox O2 Delivery O2 Flow Rate FiO2 01/28/17 07:13 93 18 125/73 (90) 93 Room Air 01/28/17 07:12 78 18 137/78 (97) 94 Room Air 01/28/17 07:06 36.8 78 18 149/71 (97) 90 Room Air 01/28/17 04:00 83 18 134/74 (94) 95 Room Air 01/28/17 04:00 76 18 166/74 (104) 95 Room Air 01/28/17 04:00 36.9 74 18 169/77 (107) 95 Room Air 74 01/28/17 04:00 95 Room Air 01/28/17 00:01 99 Room Air 01/28/17 00:01 36.7 77 20 133/69 (90) 99 Room Air 77 01/27/17 20:00 95 Room Air 01/27/17 19:22 36.5 71 22 147/80 (102) 95 Room Air 01/27/17 16:00 Room Air 01/27/17 15:33 36.8 74 22 134/79 (97) 96 Room Air 79 145/76 (99) 86 118/70 (86) 01/27/17 12:00 Room Air 01/27/17 11:54 36.8 68 18 149/72 (97) 95 Physical Exam General Appearance: no apparent distress Respiratory/Chest: lungs clear, normal breath sounds, no respiratory distress, no accessory muscle use Cardiovascular: regular rate, rhythm, no edema, no murmur Neurologic/Psychiatric: no motor/sensory deficits, alert, normal mood/affect Skin: normal color Laboratory Results Last 24 Hours Test 01/27/17 15:55 01/28/17 05:43 Urine Color YELLOW Urine Appearance CLEAR Urine pH 7.0 Urine Specific [place] 1.008 Urine Protein NEG Urine Glucose (UA) NEG Urine Ketones NEG Urine Occult Blood NEG Urine Nitrite NEG Urine Bilirubin NEG Urine Urobilinogen NEG Urine Leukocyte Esterase MODERATE Urine WBC (Auto) /hpf Urine RBC (Auto) /hpf Urine Hyaline Casts (Auto) /lpf Urine Epithelial Cells (Auto) /lpf Urine Bacteria (Auto) Urine RBC 0-4 /hpf Urine WBC 10-30 /hpf Urine Epithelial Cells >30 /lpf Urine Renal Epithelial Cells /lpf Urine Bacteria 1+ White Blood Count 7.32 K/uL Red Blood Count 3.67 M/uL Hemoglobin 10.0 g/dL Hematocrit 32.8 % Mean Corpuscular Volume 89.4 fL Mean Corpuscular Hemoglobin 27.2 pg Mean Corpuscular Hemoglobin Concent 30.5 g/dl Platelet Count 449 K/uL Mean Platelet Volume 8.3 fL Neutrophils (%) (Auto) 67.8 % Lymphocytes (%) (Auto) 11.9 % Monocytes (%) (Auto) 8.6 % Eosinophils (%) (Auto) 11.1 % Basophils (%) (Auto) 0.3 % Neutrophils # (Auto) 4.97 K/uL Lymphocytes # (Auto) 0.87 K/uL Monocytes # (Auto) 0.63 K/uL Eosinophils # (Auto) 0.81 K/uL Basophils # (Auto) 0.02 K/uL RDW Standard Deviation 49.6 fL RDW Coefficient of Variation 15.2 % Immature Granulocyte % (Auto) 0.3 % Immature Granulocyte # (Auto) 0.02 K/uL Sodium Level 144 mmol/L Potassium Level 4.0 mmol/L Chloride Level 112 mmol/L Carbon Dioxide Level 26 mmol/L Anion Gap 6.0 mmol/L Blood Urea Nitrogen 11 mg/dl Creatinine 0.47 mg/dl Est Creatinine Clear Calc Drug Dose 85.1 ml/min Estimated GFR () 102.9 Estimated GFR (Non- 88.8 BUN/Creatinine Ratio 22.8 Random Glucose 89 mg/dl Calcium Level 8.3 mg/dl Assessment and Plan This is an 86 year old female who lives alone and uses a cane for ambulation at baseline with a PMH of HTN, Rheumatoid Arthritis, hx. 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 SNF - pt. refusing SNF 01/[address] shows an acute to subacute internal capsular CVA patient has no residual symptoms started Plavix continue aspirin and statin Ha1c = 6.0% LDL = 47 PT/OT/speech neuro consultation for further input Mechanical Fall/Ambulatory Dysfunction patient with mechanical fall no acute fractures noted uses cane at baseline PT/OT evaluation pending may need placement discharge planning evaluation C-spine - degenerative changes HTN continue amlodipine monitor BP, some permissive HTN for now ultimate goal is <150/90 DVT ppx SCDs FULL CODE
[2017-01-28] MEDS ORDERED: POLYETHYLENE (MIRALAX) 17 GM PACK ONE (10:52)
[2017-01-28] MEDS: CHOLECALCIFEROL 1000 INTER.UNIT TAB PO SCH (11:00)
--- NOTE | 2017-01-28 11:58 | NEUROLOGY PROGRESS NOTE ---
DATE: 01/28/2017 DATE: 01/28/2017. SUBJECTIVE: I am seeing Ms. Forman in followup of a fall with an abnormal CT suggestive of a probable acute subacute infarct in the left posterior internal capsule. Carotid ultrasound showed no high grade stenosis. Echo showed no cardioembolic source. She is on aspirin and Plavix which she has tolerated well. She is not aware of any new neurologic symptoms. I saw her today with physical therapy and they are not recommending inpatient rehabilitation. The patient indicates no new weakness, numbness. PHYSICAL EXAMINATION: GENERAL: She is awake and alert, cooperative. No right/left confusion. Speech and language is unremarkable. There are no carotid bruits. HEART: Regular. Normal visual og, slight flattening of the right nasolabial fold. No dysarthria. No asymmetric weakness. Reflexes are symmetric. Sensation is intact bilaterally to temperature and light touch, although is inconsistent. IMPRESSIONS: 1. Posterior limb of the left internal capsule infarct. Continue risk factor modification, dual antiplatelet therapy for 3 months and then discontinue aspirin. It appears that LDL is at goal. 2. History of dementia, not specifically addressed. I would not recommend any additional cardiac monitoring given her age, ambulatory status. She is not an anticoagulation candidate. TORI
[2017-01-28] MEDS: ASPIRIN 81 MG ECTAB PO SCH (20:30)
[2017-01-29] VITALS (13 sets, daily range): BP systolic 135–173; BP diastolic 68–80; PULSE 71–90; TEMP 36.3–37.1; O2SAT 92–98
[2017-01-29] MEDS: SODIUM CHLORIDE 0.9% 1000ML 1,000 ML IV SCH ×2 (00:05→12:47)
[2017-01-29 05:51] LABS: BASO % 0.3 %; BASO ABS # 0.02 K/uL (0-0.2); COMPLETE YES; EOS % 10.7 %; HEMATOCRIT 32.2 % (37-47); IG% 0.1 %; LYMPH % 13.1 %; LYMPH ABS # 0.88 K/uL (1.2-3.4); MEAN CELL VOLUME 89.7 fL (80-100); MEAN CORPUSCULAR HEMOGLOBIN 26.5 pg (25-34); MEAN CORPUSCULAR HGB CONC 29.5 g/dl (32-36); MEAN PLATELET VOLUME 8.2 fL (7.4-10.4); MONO % 11.6 %; NEUT % 64.2 %; PLATELET COUNT 418 K/uL (130-400); RED BLOOD COUNT 3.59 M/uL (4.2-5.4); WHITE BLOOD COUNT 6.74 K/uL (4.8-10.8)
[2017-01-29 06:24] LABS: BUN/CREATININE RATIO 18.5 (10-20); CALCIUM 8.1 mg/dl (8.5-10.1); CREATININE 0.45 mg/dl (0.60-1.20); POTASSIUM 4.3 mmol/L (3.5-5.1)
[2017-01-29] MEDS: HYDROCODONE/ACETAMOPHEN 5/325MG TAB PO SCH ×3 (08:57→20:50)
[2017-01-29] MEDS: POLYETHYLENE (MIRALAX) 17 GM PACK PO SCH (09:01)
[2017-01-29] MEDS: CHOLECALCIFEROL 1000 INTER.UNIT TAB PO SCH (09:02)
[2017-01-29] MEDS: OXYBUTYNIN CHLORIDE 5 MG TABCR PO SCH (09:02)
[2017-01-29] MEDS: CLOPIDOGREL BISULFATE 75 MG TAB PO SCH (09:02)
[2017-01-29] MEDS: AMLODIPINE BESYLATE 5 MG TAB PO SCH (09:02)
[2017-01-29] MEDS: GLUCOSAMINE SULFATE 500 MG CAP PO SCH ×3 (09:02→20:50)
[2017-01-29] MEDS: DICLOFENAC SOD 1% GEL 100 GM TUBE EXT SCH (09:04)
[2017-01-29] MEDS: ATORVASTATIN 20 MG TAB PO SCH (09:09)
--- NOTE | 2017-01-29 10:27 | Progress Note ---
Subjective Date of Service: Jan 29, 2017. Subjective Pt evaluation today including: conversation w/ patient, physical exam, lab review, review of studies, review of inpatient medication list Saw/examined the patient in room 244 She's doing well today She is agreeable to plan for rehab Problem List Medical Problems: (1) Peripheral edema Status: Acute Review of Systems Constitutional: No fever, No chills, No weakness Respiratory: No cough, No sputum, No shortness of breath Cardiac: No chest pain, No edema, No palpitations Abdomen: No pain, No nausea, No vomiting, No diarrhea Medications Current Inpatient Medications Medications (Trade) Dose Ordered Sig/Ralph Route Start Time Stop Time Status Last Admin Dose Admin Clopidogrel Bisulfate (plAVix TAB) 75 mg QAM PO 01/27/17 09:00 02/26/17 08:59 01/29/17 09:02 75 MG Miscellaneous Information (Pharmacist Discharge Med Rec Consult) 1 ea UD PRN N/A 01/26/17 13:45 02/25/17 13:44 Sodium Chloride 1,000 ml @ 75 mls/hr [id number] IV 01/26/17 13:33 02/25/17 13:32 01/29/17 00:05 75 MLS/HR Al Hydrox/Mg Hydrox/Simethicone (Maalox Max Susp) 15 ml Q4H PRN PO 01/26/17 13:45 02/25/17 13:44 Magnesium Hydroxide (Milk Of Magnesia Susp) 30 ml Q12H PRN PO 01/26/17 13:45 02/25/17 13:44 Ondansetron HCl (Zofran Inj) 4 mg Q6H PRN IV 01/26/17 13:45 02/25/17 13:44 Nitroglycerin (Nitrostat Tab) 0.4 mg UD PRN SL 01/26/17 13:45 02/25/17 13:44 Acetaminophen (Tylenol Tab) 1,000 mg TID PRN PO 01/26/17 14:00 02/25/17 13:59 Alendronate Sodium (Fosamax Tab) 70 mg Hollins@0630 PO 01/28/17 06:30 02/27/17 06:29 01/28/17 06:25 70 MG Amlodipine Besylate (Norvasc Tab) 5 mg QAM PO 01/27/17 09:00 8/21/17 08:59 01/29/17 09:02 5 MG Aspirin (Ecotrin Tab) 81 mg QPM PO 01/26/17 21:00 02/25/17 20:59 01/28/17 20:30 81 MG Cholecalciferol (Vitamin D Tab) 1,000 inter.unit QAM PO 01/27/17 09:00 02/26/17 08:59 01/29/17 09:02 1,000 INTER.UNIT Diclofenac Sodium (Voltaren 1% Top Gel) 1 appln DAILY EXT 01/27/17 09:00 02/26/17 08:59 01/29/17 09:04 1 APPLN Folic Acid (Folvite Tab) 1 mg QAM PO 01/27/17 09:00 02/26/17 08:59 01/29/17 09:02 1 MG Acetaminophen/ Hydrocodone Bitart (Hustle 5/325 Tab) 1 tab TID PO 01/26/17 14:00 02/09/17 13:59 01/28/17 20:31 1 TAB Oxybutynin Chloride (Ditropan-Xl Tab) 10 mg QAM PO 01/27/17 09:00 02/26/17 08:59 01/29/17 09:02 10 MG Furosemide (Lasix Tab) 20 mg Q2D PRN PO 01/26/17 14:00 02/25/17 13:59 Ondansetron HCl (Zofran Odt) 8 mg Q6H PRN SL 01/26/17 14:00 02/25/17 13:59 Glucosamine Sulfate (Glucosamine Cap) 500 mg TID PO 01/26/17 21:00 02/25/17 20:59 01/29/17 09:02 500 MG Atorvastatin Calcium (Lipitor Tab) 40 mg QAM PO 01/29/17 09:00 02/26/17 08:59 01/29/17 09:09 40 MG Polyethylene (Miralax Powder Packet) 17 gm DAILY PO 01/29/17 09:00 02/28/17 08:59 01/29/17 09:01 17 GM Objective Vital Signs Date Time Temp Pulse Resp B/P (MAP) Pulse Ox O2 Delivery O2 Flow Rate FiO2 01/29/17 08:31 82 146/77 (100) 01/29/17 08:31 82 146/72 (96) 01/29/17 07:39 36.3 82 17 160/80 (106) 92 Room Air 01/29/17 04:00 96 Room Air 01/29/17 03:12 36.8 71 16 153/70 (97) 96 Room Air 01/29/17 00:01 98 Room Air 01/28/17 23:12 37.0 76 22 149/66 (93) 98 Room Air 84 132/66 (88) 88 126/77 (93) 01/28/17 20:00 93 Room Air 01/28/17 19:41 36.8 87 16 163/76 (105) 93 Room Air 01/28/17 16:00 Room Air 01/28/17 15:09 36.8 67 19 148/65 (92) 95 Room Air 77 134/72 (92) 82 122/68 (86) 01/28/17 12:11 74 95 01/28/17 12:00 95 Room Air 01/28/17 11:58 36.9 77 18 126/73 (90) 94 Room Air Physical Exam General Appearance: no apparent distress Respiratory/Chest: lungs clear, normal breath sounds, no respiratory distress, no accessory muscle use Cardiovascular: regular rate, rhythm, no edema, no gallop, no JVD, no murmur Abdomen: normal bowel sounds, non tender, soft Extremities: normal inspection, no pedal edema Neurologic/Psychiatric: no motor/sensory deficits, alert, normal mood/affect Skin: normal color Laboratory Results Last 24 Hours Test 01/29/17 05:32 White Blood Count 6.74 K/uL Red Blood Count 3.59 M/uL Hemoglobin 9.5 g/dL Hematocrit 32.2 % Mean Corpuscular Volume 89.7 fL Mean Corpuscular Hemoglobin 26.5 pg Mean Corpuscular Hemoglobin Concent 29.5 g/dl Platelet Count 418 K/uL Mean Platelet Volume 8.2 fL Neutrophils (%) (Auto) 64.2 % Lymphocytes (%) (Auto) 13.1 % Monocytes (%) (Auto) 11.6 % Eosinophils (%) (Auto) 10.7 % Basophils (%) (Auto) 0.3 % Neutrophils # (Auto) 4.33 K/uL Lymphocytes # (Auto) 0.88 K/uL Monocytes # (Auto) 0.78 K/uL Eosinophils # (Auto) 0.72 K/uL Basophils # (Auto) 0.02 K/uL RDW Standard Deviation 50.4 fL RDW Coefficient of Variation 15.3 % Immature Granulocyte % (Auto) 0.1 % Immature Granulocyte # (Auto) 0.01 K/uL Sodium Level 145 mmol/L Potassium Level 4.3 mmol/L Chloride Level 113 mmol/L Carbon Dioxide Level 26 mmol/L Anion Gap 6.0 mmol/L Blood Urea Nitrogen 8 mg/dl Creatinine 0.45 mg/dl Est Creatinine Clear Calc Drug Dose 88.8 ml/min Estimated GFR () 104.4 Estimated GFR (Non- 90.1 BUN/Creatinine Ratio 18.5 Random Glucose 95 mg/dl Calcium Level 8.1 mg/dl Assessment and Plan This is an 86 year old female who lives alone and uses a cane for ambulation at baseline with a PMH of HTN, Rheumatoid Arthritis, hx. 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 SNF - pt. refusing SNF 01/[address] shows an acute to subacute internal capsular CVA patient has no residual symptoms started Plavix continue aspirin and statin Ha1c = 6.0% LDL = 47 PT/OT/speech neuro consultation for further input Mechanical Fall/Ambulatory Dysfunction patient with mechanical fall no acute fractures noted uses cane at baseline PT/OT evaluation pending may need placement discharge planning evaluation C-spine - degenerative changes HTN continue amlodipine monitor BP, some permissive HTN for now ultimate goal is <150/90 DVT ppx SCDs FULL CODE
--- NOTE | 2017-01-29 15:17 | Neurology Progress Notes ---
Neurology Progress Note Date of Service Jan 29, 2017. Kaitlynn Leal is a 86-year-old female with PMH vascular dementia, HTN, history of squamous cell carcinoma, vitamin D deficiency, RA, OA. She lives alone but has a total of 5 caregivers and son lives close by. She was brought to the hospital after she fell and bruised her right shoulder. She had a CT head which showed a small subacute left posterior internal capsule infarct. She answers appropriately but does not know her pills. Her grandson is in the room. She denies blurred vision, dizziness, nausea, vomiting, CP, SOB.Caregivers were concerned thinking she had lost alot of weight and her appetite has not been good according the chart. She does ambulate with a cane at baseline, she does not walk much. Objective Date Time Temp Pulse Resp B/P (MAP) Pulse Ox O2 Delivery O2 Flow Rate FiO2 01/29/17 12:00 Room Air 01/29/17 10:59 36.8 80 15 150/71 (97) 96 Room Air 01/29/17 08:31 82 146/77 (100) 01/29/17 08:31 82 146/72 (96) 01/29/17 08:00 Room Air 01/29/17 07:39 36.3 82 17 160/80 (106) 92 Room Air 01/29/17 04:00 96 Room Air 01/29/17 03:12 36.8 71 16 153/70 (97) 96 Room Air 01/29/17 00:01 98 Room Air 01/28/17 23:12 37.0 76 22 149/66 (93) 98 Room Air 84 132/66 (88) 88 126/77 (93) 01/28/17 20:00 93 Room Air 01/28/17 19:41 36.8 87 16 163/76 (105) 93 Room Air 01/28/17 16:00 Room Air 01/28/17 15:09 36.8 67 19 148/65 (92) 95 Room Air 77 134/72 (92) 82 122/68 (86) Last 24 Hours Test 01/29/17 05:32 White Blood Count 6.74 K/uL Red Blood Count 3.59 M/uL Hemoglobin 9.5 g/dL Hematocrit 32.2 % Mean Corpuscular Volume 89.7 fL Mean Corpuscular Hemoglobin 26.5 pg Mean Corpuscular Hemoglobin Concent 29.5 g/dl Platelet Count 418 K/uL Mean Platelet Volume 8.2 fL Neutrophils (%) (Auto) 64.2 % Lymphocytes (%) (Auto) 13.1 % Monocytes (%) (Auto) 11.6 % Eosinophils (%) (Auto) 10.7 % Basophils (%) (Auto) 0.3 % Neutrophils # (Auto) 4.33 K/uL Lymphocytes # (Auto) 0.88 K/uL Monocytes # (Auto) 0.78 K/uL Eosinophils # (Auto) 0.72 K/uL Basophils # (Auto) 0.02 K/uL RDW Standard Deviation 50.4 fL RDW Coefficient of Variation 15.3 % Immature Granulocyte % (Auto) 0.1 % Immature Granulocyte # (Auto) 0.01 K/uL Sodium Level 145 mmol/L Potassium Level 4.3 mmol/L Chloride Level 113 mmol/L Carbon Dioxide Level 26 mmol/L Anion Gap 6.0 mmol/L Blood Urea Nitrogen 8 mg/dl Creatinine 0.45 mg/dl Est Creatinine Clear Calc Drug Dose 88.8 ml/min Estimated GFR () 104.4 Estimated GFR (Non- 90.1 BUN/Creatinine Ratio 18.5 Random Glucose 95 mg/dl Calcium Level 8.1 mg/dl Imaging: CT spine Xray- No cervical spine fracture identified although C7 slightly obscured on this exam. Moderate to severe multilevel degenerative disc disease and facet arthrosis of the cervical spine. Reversal of normal cervical lordosis with slight anterolisthesis of C2 on C3, C3 on C4 and C4 on C5. carotid doppler- No hemodynamically significant stenosis seen within the carotid arteries. TTE- * The left ventricle is normal in size. * There is normal left ventricular wall thickness. * The left ventricular wall motion is normal. * Left ventricular systolic function is normal. * Ejection Fraction = >70 %. * Aortic valve sclerosis mild, without significant aortic valvular stenosis. Exam: Physical Exam: Constitutional: , appearance nourished, healthy and normal Ears, Nose, Mouth and Throat: mucous membranes moist, no injection and skin normal, eyes normal Cardiovascular: normal S-1 and S-2 and regular rate and rhythm Respiratory: clear to auscultation (CTA) and no rales, rhonchi or wheeze Musculoskeletal: no peripheral edema and good distal pulses Skin: no stigmata of neurocutaneous disease noted and normal and intact Eyes: extraocular muscles intact (EOMI) and pupils equal, round and reactive to light (PERRL) NEUROLOGIC EXAMINATION: Mental status: Alert and interactive Oriented to full date and location Oriented to person Speech fluent with no evidence of aphasia Cranial Nerves smile eye brow raise symmetric, tongue midline Reflexes: Deep tendon reflexes were symmetrical and graded 2/5. Plantar responses were flexor. Sensory: to light touch Coordination: finger to nose without bi pass Gait/Stance: Posture lying in bed Motor: Negative for pronator drift of out stretched arms with eyes closed. Strength: bilateral hand motorcycle racer biceps triceps 3/5. hip flex left 4/5, right 4/5, plantar flex ext 5/5 Current Inpatient Medications Medications (Trade) Dose Ordered Sig/Ralph Route Start Time Stop Time Status Last Admin Dose Admin Clopidogrel Bisulfate (plAVix TAB) 75 mg QAM PO 01/27/17 09:00 02/26/17 08:59 01/29/17 09:02 75 MG Miscellaneous Information (Pharmacist Discharge Med Rec Consult) 1 ea UD PRN N/A 01/26/17 13:45 02/25/17 13:44 Sodium Chloride 1,000 ml @ 75 mls/hr [id number] IV 01/26/17 13:33 02/25/17 13:32 01/29/17 12:47 75 MLS/HR Al Hydrox/Mg Hydrox/Simethicone (Maalox Max Susp) 15 ml Q4H PRN PO 01/26/17 13:45 02/25/17 13:44 Magnesium Hydroxide (Milk Of Magnesia Susp) 30 ml Q12H PRN PO 01/26/17 13:45 02/25/17 13:44 Ondansetron HCl (Zofran Inj) 4 mg Q6H PRN IV 01/26/17 13:45 02/25/17 13:44 Nitroglycerin (Nitrostat Tab) 0.4 mg UD PRN SL 01/26/17 13:45 02/25/17 13:44 Acetaminophen (Tylenol Tab) 1,000 mg TID PRN PO 01/26/17 14:00 02/25/17 13:59 Alendronate Sodium (Fosamax Tab) 70 mg Hollins@0630 PO 01/28/17 06:30 02/27/17 06:29 01/28/17 06:25 70 MG Amlodipine Besylate (Norvasc Tab) 5 mg QAM PO 01/27/17 09:00 02/26/17 08:59 01/29/17 09:02 5 MG Aspirin (Ecotrin Tab) 81 mg QPM PO 01/26/17 21:00 02/25/17 20:59 01/28/17 20:30 81 MG Cholecalciferol (Vitamin D Tab) 1,000 inter.unit QAM PO 01/27/17 09:00 02/26/17 08:59 01/29/17 09:02 1,000 INTER.UNIT Diclofenac Sodium (Voltaren 1% Top Gel) 1 appln DAILY EXT 01/27/17 09:00 02/26/17 08:59 01/29/17 09:04 1 APPLN Folic Acid (Folvite Tab) 1 mg QAM PO 01/27/17 09:00 02/26/17 08:59 01/29/17 09:02 1 MG Acetaminophen/ Hydrocodone Bitart (Placida 5/325 Tab) 1 tab TID PO 01/26/17 14:00 02/09/17 13:59 01/28/17 20:31 1 TAB Oxybutynin Chloride (Ditropan-Xl Tab) 10 mg QAM PO 01/27/17 09:00 02/26/17 08:59 01/29/17 09:02 10 MG Furosemide (Lasix Tab) 20 mg Q2D PRN PO 01/26/17 14:00 02/25/17 13:59 Ondansetron HCl (Zofran Odt) 8 mg Q6H PRN SL 01/26/17 14:00 02/25/17 13:59 Glucosamine Sulfate (Glucosamine Cap) 500 mg TID PO 01/26/17 21:00 02/25/17 20:59 01/29/17 14:40 500 MG Atorvastatin Calcium (Lipitor Tab) 40 mg QAM PO 01/29/17 09:00 02/26/17 08:59 01/29/17 09:09 40 MG Polyethylene (Miralax Powder Packet) 17 gm DAILY PO 01/29/17 09:00 02/28/17 08:59 01/29/17 09:01 17 GM Impression 86 year old with multiple medical issues, s/p fall from standing Plan 1. MRI brain -patient has refused 2. permissive hypertension 3. then optimize blood pressure, cholesterol 4. was not previously on aspirin, Plavix 75 mg and aspirin 81 mg daily x 3 months, then aspirin 81 mg for a life time 5. patient will need rehab and home evaluation prior to return home. she is notably weak 6. patient is willing to have rehab but she doesn't want to be permanently in a correction 7. fall precautions 8. PT/OT and speech for discharge instructions. I have seen and discussed above patient with Dr Aleksey Diop, neurology I have seen this woman and reviewed her case with Sara VIZCAINO C Has a virtually asymptomatic subacute left posterior capsule infarct likely small vessel or lacunar in type in setting of a modest dementia who is here not due to the cva per se but to a fall. Mri may help further define the lesion seen on ct but she has refused the study and at this point we will defer to her wishes rx with dual antiplatelet rx and wathc her clinically Again her living situation seems potentially tenuous but family apparently is ok with this Discharge planning not clear yet and if she does consent to mri we can get it done simply to clear the air as the the nature of the small low density lesion in the left posterior capsule We will follow until situation and follow up plans are more clearly defined but diagnostically and therapeutically neurology has no further suggestions Aleksey Diop MD
[2017-01-29] MEDS ORDERED: DOCUSATE SODIUM 100 MG CAP PO ONE (16:15)
[2017-01-29] MEDS ORDERED: BISACODYL 5 MG TABEC PO ONE (16:15)
[2017-01-29] MEDS ORDERED: BISACODYL 5 MG TABEC PO PRN (16:15)
[2017-01-29] MEDS: DOCUSATE SODIUM 100 MG CAP PO SCH (20:49)
[2017-01-29] MEDS: ASPIRIN 81 MG ECTAB PO SCH (20:50)
[2017-01-30 02:56] VITALS: BP 166/72; PULSE 77; TEMP 37; O2SAT 91
[2017-01-30] MEDS: SODIUM CHLORIDE 0.9% 1000ML 1,000 ML IV SCH ×2 (04:17→10:53)
[2017-01-30 06:14] LABS: HEMATOCRIT 31.2 % (37-47); MEAN CELL VOLUME 89.7 fL (80-100); MEAN CORPUSCULAR HEMOGLOBIN 26.4 pg (25-34); MEAN CORPUSCULAR HGB CONC 29.5 g/dl (32-36); MEAN PLATELET VOLUME 8.3 fL (7.4-10.4); PLATELET COUNT 437 K/uL (130-400); RED BLOOD COUNT 3.48 M/uL (4.2-5.4)
[2017-01-30 06:52] LABS: BUN/CREATININE RATIO 14.6 (10-20); CALCIUM 8.2 mg/dl (8.5-10.1); CREATININE 0.44 mg/dl (0.60-1.20); POTASSIUM 3.8 mmol/L (3.5-5.1)
[2017-01-30] MEDS: DICLOFENAC SOD 1% GEL 100 GM TUBE EXT SCH (07:58)
[2017-01-30 08:00] VITALS: O2SAT 93
[2017-01-30] MEDS: ATORVASTATIN 20 MG TAB PO SCH (08:00)
[2017-01-30] MEDS: OXYBUTYNIN CHLORIDE 5 MG TABCR PO SCH (08:00)
[2017-01-30] MEDS: POLYETHYLENE (MIRALAX) 17 GM PACK PO SCH (08:01)
[2017-01-30] MEDS: HYDROCODONE/ACETAMOPHEN 5/325MG TAB PO SCH ×2 (08:01→13:21)
[2017-01-30] MEDS: CHOLECALCIFEROL 1000 INTER.UNIT TAB PO SCH (08:01)
[2017-01-30] MEDS: CLOPIDOGREL BISULFATE 75 MG TAB PO SCH (08:01)
[2017-01-30] MEDS: GLUCOSAMINE SULFATE 500 MG CAP PO SCH ×2 (08:02→13:21)
[2017-01-30] MEDS: AMLODIPINE BESYLATE 5 MG TAB PO SCH (08:02)
[2017-01-30] MEDS: DOCUSATE SODIUM 100 MG CAP PO SCH (08:03)
[2017-01-30 08:11] VITALS: BP_SYST 148; BP_SYST 165; BP_SYST 173; BP_DIAS 72; BP_DIAS 77; PULSE 69; PULSE 70; PULSE 74; TEMP 36.8; O2SAT 94
[2017-01-30] MEDS ORDERED: LPT20 PO ×2 (10:18)
[2017-01-30] MEDS ORDERED: HYDR-5688 PO ×3 (10:18→10:21)
[2017-01-30] MEDS ORDERED: PLV75 PO ×2 (10:18)
[2017-01-30] MEDS ORDERED: MOMLX PO ×2 (10:18)
[2017-01-30] MEDS ORDERED: DLC5 PO ×2 (10:18)
[2017-01-30] MEDS ORDERED: MLXESC PO ×2 (10:18)
--- NOTE | 2017-01-30 10:19 | Discharge Instructions ---
Discharge Instructions Date of Service Jan 30, 2017. Admission Reason for Admission: Cva,Fall Discharge Discharge Diagnosis / Problem: ACUTE /SUB ACUTE CVA Discharge Goals Goal(s): Decrease discomfort, Increase independence, Improve disease control Activity Recommendations Activity Level: Assistance Required Therapies: Physical Therapy, Occupational Therapy . Additional Information Patient informed of condition: Yes Advance Directives: No DNR: No Level of Care: Skilled Communicable Disease: No Prognosis: Stable [place] Catheter: No Instructions / Follow-Up Instructions / Follow-Up FOLLOW UP WITH FAMILY PHYSICIAN AFTER DISCHARGE FORM REHAB Current Hospital Diet Patient's current hospital diet: AHA Diet (Heart Healthy) Discharge Diet Recommended Diet: AHA Diet (Heart Healthy) Pending Studies Studies pending at discharge: no Laboratory Results Hemoglobin A1c Test 01/27/17 03:14 Range/Units Estimated Average Glucose 126 mg/dl Hemoglobin A1c 6.0 H 4.5-5.6 % Lipid Panel Test 01/27/17 03:14 Range/Units Triglycerides Level 86 0-150 mg/dl Cholesterol Level 108 0-200 mg/dl HDL Cholesterol 44 mg/dl Cholesterol/HDL Ratio 2.5 LDL Cholesterol, Calculated 47 mg/dl Medical Emergencies . Who to Call and When: Medical Emergencies: If at any time you feel your situation is an emergency, please call 911 immediately. . Non-Emergent Contact Non-Emergency issues call your: Primary Care Provider . . "Provider Documentation" section prepared by Radha Corley. . Core Measure Problem Core Measures: Stroke Stroke Core Measures Reason no t-PA for Stroke: Treatment not indicated Reason no antithrom by day 2: Treatment provided - N/A Reason no antithrom at D/C: Treatment provided - N/A Reason no statin at D/C: Treatment provided - N/A Reason no anticoag w/a fib: Treatment not indicated
--- NOTE | 2017-01-30 10:26 | Progress Note ---
Internal Med Progress Note Date of Service: Jan 30, 2017. Provider Documentation: SUBJECTIVE: feels fine , has minimum weakness on rt side has chronic weakness on left shoulder for Arthritis able to stand up with assistance , take few steps stable to be transferred to rehab today OBJECTIVE: Vital Signs-as noted below Exam: General-elderly female, no evidence of distress Eyes-sclera non icteric ENT-NAD Neck-no JVD , Lungs-CTA, no JVD Heart-regular S1/S2 Abdomen-soft, non tender Extremities-no lower ext edema Neuro-AAO x3, no focal deficit Lab data as noted below. ASSESSMENT & PLAN: This is an 86 year old female who lives alone and uses a cane for ambulation at baseline with a PMH of HTN, Rheumatoid Arthritis, hx. 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 CT finding shows acute /subacute left internal capsule CVA pt was not able to tolerate MRI of brain appreciate input form Neurology will continue aspirin + Plavix x3 months then Aspirin 81 mg life long patient agreeable to rehab; CM aware, stable for discharge Mechanical Fall/Ambulatory Dysfunction patient with mechanical fall no acute fractures noted uses cane at baseline PT/OT evaluation appreciated stable to go to SNF C-spine - degenerative changes HTN continue amlodipine DVT ppx SCDs FULL CODE DISPOSITION accepted to [facility] today stable to be transferred to rehab Vital Signs: Date Time Temp Pulse Resp B/P (MAP) Pulse Ox O2 Delivery O2 Flow Rate FiO2 01/30/17 08:11 36.8 69 18 173/72 (105) 94 70 165/72 (103) 74 148/77 (100) 01/30/17 04:00 Room Air 01/30/17 02:56 37.0 77 17 166/72 (103) 91 Room Air 01/30/17 00:00 Room Air 01/29/17 23:53 37.0 77 18 163/76 (105) 94 Room Air 80 173/79 (110) 84 145/71 (95) 01/29/17 20:00 94 Room Air 01/29/17 19:40 36.4 81 24 153/68 (96) 94 Room Air 01/29/17 19:39 36.4 87 22 138/76 (96) 97 Room Air 01/29/17 19:31 36.4 87 22 138/76 (96) 94 Room Air 01/29/17 19:27 36.4 90 20 135/72 (93) 94 Room Air 01/29/17 16:00 Room Air 01/29/17 15:23 37.1 87 22 161/76 (104) 95 Room Air 01/29/17 12:00 Room Air 01/29/17 10:59 36.8 80 15 150/71 (97) 96 Room Air Lab Results: Results Past 24 Hours Test 01/30/17 05:57 Range/Units White Blood Count 6.70 4.8-10.8 K/uL Red Blood Count 3.48 4.2-5.4 M/uL Hemoglobin 9.2 12.0-16.0 g/dL Hematocrit 31.2 37-47 % Mean Corpuscular Volume 89.7 80-100 fL Mean Corpuscular Hemoglobin 26.4 25-34 pg Mean Corpuscular Hemoglobin Concent 29.5 32-36 g/dl RDW Standard Deviation 50.6 36.4-46.3 fL RDW Coefficient of Variation 15.4 11.5-14.5 % Platelet Count 437 130-400 K/uL Mean Platelet Volume 8.3 7.4-10.4 fL Sodium Level 144 136-145 mmol/L Potassium Level 3.8 3.5-5.1 mmol/L Chloride Level 111 98-107 mmol/L Carbon Dioxide Level 27 21-32 mmol/L Anion Gap 6.0 3-11 mmol/L Blood Urea Nitrogen 6 7-18 mg/dl Creatinine 0.44 0.60-1.20 mg/dl Est Creatinine Clear Calc Drug Dose 90.9 ml/min Estimated GFR () 105.2 Estimated GFR (Non- 90.8 BUN/Creatinine Ratio 14.6 10-20 Random Glucose 92 70-99 mg/dl Calcium Level 8.2 8.5-10.1 mg/dl
--- NOTE | 2017-01-30 10:31 | Discharge Summary ---
Discharge Summary Date of Service Jan 30, 2017. Discharge Summary Admission Date: Jan 26, 2017 at 13:41 Discharge Date: Jan 30, 2017 [facility]charge Disposition: [facility] facility Principal Diagnosis: ACUTE /SUB ACUTE CVA Procedures: CT HEAD Impression: 1. 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 Moderate chronic small vessel change. Chronic ventricular prominence. 2. No evidence for acute intracranial hemorrhage CAROTID DOPPLER : IMPRESSION: No hemodynamically significant stenosis seen within the carotid arteries. ECHO : The left ventricle is normal in size. There is normal left ventricular wall thickness. The left ventricular wall motion is normal. Left ventricular systolic function is normal. Ejection Fraction = >70 %. Aortic valve sclerosis mild, without significant aortic valvular stenosis. CT CERVICAL SPINE IMPRESSION: 1. No cervical spine fracture identified although C7 slightly obscured on this exam. 2. Moderate to severe multilevel degenerative disc disease and facet arthrosis of the cervical spine. 3. Reversal of normal cervical lordosis with slight anterolisthesis of C2 on C3, C3 on C4 and C4 on C5. Consultations: NEUROLOGY Medication Reconciliation New Medications: Aluminum/Magnesium/Simeth (Mag-Al Plus Xs 400-400-40 mg/5Ml) 30 Ml Susp 15 ML PO Q4H PRN for Dyspepsia for 30 Days Atorvastatin (Atorvastatin Calcium) 20 Mg Tab 40 MG PO QAM for 30 Days, #60 TAB Bisacodyl (Bisacodyl EC) 5 Mg Tabec 5 MG PO DAILY PRN for Constipation, #30 Clopidogrel Bisulfate (Clopidogrel) 75 Mg Tab 75 MG PO QAM for 30 Days, #30 TAB Magnesium Hydroxide (Milk of Magnesia) 30 Ml Susp 30 ML PO Q12H PRN for Constipation for 30 Days Changed Medications: Hydrocodone/Acetaminophen 5MG/325MG ([place] 5MG/325MG) Tab 1 TABLET PO TID PRN for Pain, #10 TAB (Medication details modified) Continued Medications: Acetaminophen (Tylenol) 500 Mg Tab 1000 MG PO TID PRN for RN for 30 Days, #180 TAB Alendronate Sodium (Fosamax) 70 Mg Tab 1 TAB PO WK, #4 sunday Amlodipine (Norvasc) 5 Mg Tab 5 MG PO QAM, TAB Aspirin (Aspirin Ec) 81 Mg Tab 81 MG PO QPM Cholecalciferol (Vitamin D3) 1,000 Unit Tab 1 TAB PO QAM for 90 Days, #90 TAB 3 Refills Diclofenac Sodium (Topical) (Voltaren 1% Top Gel) 1 % Gel 1 DOSE TOP apply to left shoulder Folic Acid (Folvite) 1 Mg Tab 1 TAB PO QAM for 90 Days, #90 TAB 1 Refill Furosemide (Lasix) 20 Mg Tab 20 MG PO Q2D PRN for EDEMA, #20 TAB Every other day Eibnaioomvo-Xsrpiqafqpv-Qru C- (Glucosamine Chondroitin) 1 Cap Cap 1 CAP PO TID, #30 Ondansetron Odt (Zofran Odt) 8 Mg Tab 8 MG SL Q6H for Nausea, #20 TAB Oxybutynin Chloride Er (Ditropan Xl) 10 Mg Tab 10 MG PO QAM Admission Information HPI (per Admitting provider): DATE OF ADMISSION: 01/26/2017 CHIEF COMPLAINT: Fall. HISTORY OF PRESENT ILLNESS: This 86-year-old female with past medical history significant for some vascular dementia, hypertension, history of squamous cell carcinoma, history of vitamin D deficiency, rheumatoid arthritis involving multiple sites, osteoarthritis who lives alone but has a total of 5 caregivers and son lives close by. Only a couple of nights in a week she does not have any caregiver,.Patient was brought in because today morning she fell down and had some bruises on the right shoulder. In the ER, the CAT scan showed small subacute left post-internal capsular infarct. The patient currently alert and awake and oriented x2. Does not know the date. Otherwise, she is comfortable. Denies any headaches, no blurred vision, no dizziness, no nausea, no vomiting, no chest pain, no shortness of breath, no cough, no abdominal pain. Normal bowel and bladder movements. Appetite is not that great. As per the caregivers, the patient lost a lot of weight since last 2 weeks as she is n ot eating much. Patient uses cane for ambulating and as per the caregiver she is very wobbly. Currently resting comfortably and hemodynamically stable. ALLERGIES: No known drug allergies. PAST MEDICAL HISTORY: As mentioned above. PAST SURGICAL HISTORY: Dilatation and curettage, tonsillectomy, total hip replacement in 2016. MEDICATIONS: The patient is on Ditropan XL 10 mg p.o. daily, glucosamine chondroitin 1 capsule p.o. t.i.d., Lasix 20 mg every other day p.r.n., folic acid 1 mg p.o. daily, diclofenac sodium gel 1% gel daily on shoulders as needed, amlodipine 5 mg p.o. daily, aspirin enteric coated 81 mg p.o. daily, Zofran 8 mg p.o. t.i.d. p.r.n., Fosamax 70 mg p.o. weekly, vitamin D 1000 units p.o. daily, acetaminophen 1000 mg p.o. q. 6 hours p.r.n., Percocet 5/325 mg 1 tablet t.i.d. FAMILY HISTORY: Her father of old age at 90s. Mother of old age 90s. SOCIAL HISTORY: Never smoked. No alcohol use. No drug use. . REVIEW OF SYMPTOMS: As per HPI. Rest of review of symptoms negative. Physical Exam (per Admitting): PHYSICAL EXAMINATION: GENERAL: The patient is old and frail, not in distress. VITAL SIGNS: Temperature 36.7, pulse 74, respiratory rate 18, blood pressure 155/90, oxygen 92% room air. HEAD, EYES, EARS, NOSE, AND THROAT: No pallor, no icterus. Pupils equal, round, and reactive to light. NECK: No JVD, no neck masses, no carotid bruits. CARDIOVASCULAR: S1, S2 heard, regular rate and rhythm, no murmur, no gallop. RESPIRATORY SYSTEM: Normal AP diameter. No accessory muscle use. No wheezing, no crackles. ABDOMEN: Soft, bowel sounds present, nontender. No distention. CENTRAL NERVOUS SYSTEM: Cranial nerves II-XII grossly intact. Nonfocal. Ehfykj-gf-cxna test normal. Could not do pronator drift as patient could not lift her hands because of the shoulder pain. EXTREMITIES: Lower extremity edema is present and slightly erythematous. Hospital Course This is an 86 year old female who lives alone and uses a cane for ambulation at baseline with a PMH of HTN, Rheumatoid Arthritis, hx. 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 CT finding shows acute /subacute left internal capsule CVA pt was not able to tolerate MRI of brain appreciate input form Neurology will continue aspirin + Plavix x3 months then Aspirin 81 mg life long patient agreeable to rehab; CM aware, stable for discharge Mechanical Fall/Ambulatory Dysfunction patient with mechanical fall no acute fractures noted uses cane at baseline PT/OT evaluation appreciated stable to go to SNF C-spine - degenerative changes HTN continue amlodipine DVT ppx SCDs FULL CODE DISPOSITION accepted to [facility] today stable to be transferred to rehab Total time spent on discharge = 35 mins This includes examination of the patient, discharge planning, medication reconciliation, and communication with other providers. Discharge Instructions Discharge Instructions Date of Service Jan 30, 2017. Admission Reason for Admission: Cva,Fall Discharge Discharge Diagnosis / Problem: ACUTE /SUB ACUTE CVA Discharge Goals Goal(s): Decrease discomfort, Increase independence, Improve disease control Activity Recommendations Activity Level: Assistance Required Therapies: Physical Therapy, Occupational Therapy . Additional Information Patient informed of condition: Yes Advance Directives: No DNR: No Level of Care: Skilled Communicable Disease: No Prognosis: Stable [place] Catheter: No Instructions / Follow-Up Instructions / Follow-Up FOLLOW UP WITH FAMILY PHYSICIAN AFTER DISCHARGE FORM REHAB Current Hospital Diet Patient's current hospital diet: AHA Diet (Heart Healthy) Discharge Diet Recommended Diet: AHA Diet (Heart Healthy) Pending Studies Studies pending at discharge: no Laboratory Results Hemoglobin A1c Test 01/27/17 03:14 Range/Units Estimated Average Glucose 126 mg/dl Hemoglobin A1c 6.0 H 4.5-5.6 % Lipid Panel Test 01/27/17 03:14 Range/Units Triglycerides Level 86 0-150 mg/dl Cholesterol Level 108 0-200 mg/dl HDL Cholesterol 44 mg/dl Cholesterol/HDL Ratio 2.5 LDL Cholesterol, Calculated 47 mg/dl Medical Emergencies . Who to Call and When: Medical Emergencies: If at any time you feel your situation is an emergency, please call 911 immediately. . Non-Emergent Contact Non-Emergency issues call your: Primary Care Provider . . "Provider Documentation" section prepared by Radha Corley. . Core Measure Problem Core Measures: Stroke Stroke Core Measures Reason no t-PA for Stroke: Treatment not indicated Reason no antithrom by day 2: Treatment provided - N/A Reason no antithrom at D/C: Treatment provided - N/A Reason no statin at D/C: Treatment provided - N/A Reason no anticoag w/a fib: Treatment not indicated
[2017-01-30 11:49] VITALS: BP 144/74; PULSE 70; TEMP 36.7; O2SAT 96
[2017-01-30 12:00] VITALS: O2SAT 95
[2017-01-30 15:44] VITALS: BP 144/76; PULSE 70; TEMP 37.1; O2SAT 94
== END 2017-01-30 16:15 | DRG 66 ==
LOC: EDBD 10:48 → C.EDA 10:49 → C.2T 13:41 → ENRESERV 14:26
PROVIDERS: ADMIT Family Medicine; ATTEND Hospitalist
DX: I63.8 Other cerebral infarction (principal); S20.222A Contusion of left back wall of thorax, initial encounter; W01.0XXA Fall on same level from slipping, tripping and stumbling without subsequent striking against object, initial encounter; I10 Essential (primary) hypertension; E55.9 Vitamin D deficiency, unspecified; R60.0 Localized edema; M06.9 Rheumatoid arthritis, unspecified; M19.90 Unspecified osteoarthritis, unspecified site; F01.50 Vascular dementia, unspecified severity, without behavioral disturbance, psychotic disturbance, mood disturbance, and anxiety; R26.2 Difficulty in walking, not elsewhere classified; R63.4 Abnormal weight loss; Z68.21 Body mass index [BMI] 21.0-21.9, adult; Z96.649 Presence of unspecified artificial hip joint; Z79.83 Long term (current) use of bisphosphonates; Z79.82 Long term (current) use of aspirin; Z79.891 Long term (current) use of opiate analgesic; Z79.899 Other long term (current) drug therapy

== ENCOUNTER → 2017-02-02 | Outpatient (CLI) | payer OTHER ==
[~2017-02-02] MED LIST changes: +ACET-1311 PO; +ATOR-24 PO; +CLOP1TAB15 PO; -DIPH-437 PO; +DLC5 PO; -DOCU-94 PO; +GLUC1CAP35 PO; +GLUC500T23 PO; +LPT20 PO; +MLXESC PO; +MOMLX PO; +ONDA8TAB13 SL; +ONDA8TAB6 PO; +PLV75 PO
[2017-02-02 08:26] LABS: BASO % 0.2 %; BASO ABS # 0.02 K/uL (0-0.2); COMPLETE YES; EOS % 5.6 %; HEMATOCRIT 30.7 % (37-47); IG% 0.2 %; LYMPH % 14.2 %; LYMPH ABS # 1.17 K/uL (1.2-3.4); MEAN CELL VOLUME 89.5 fL (80-100); MEAN CORPUSCULAR HEMOGLOBIN 26.5 pg (25-34); MEAN CORPUSCULAR HGB CONC 29.6 g/dl (32-36); MEAN PLATELET VOLUME 8.7 fL (7.4-10.4); MONO % 15.6 %; NEUT % 64.2 %; PLATELET COUNT 453 K/uL (130-400); RED BLOOD COUNT 3.43 M/uL (4.2-5.4); WHITE BLOOD COUNT 8.25 K/uL (4.8-10.8)
== END ==
LOC: C.LABCC 07:43
PROVIDERS: ATTEND Internal Medicine
DX: D64.9 Anemia, unspecified (principal)

== ENCOUNTER → 2017-02-04 | Outpatient (CLI) | payer OTHER ==
[~2017-02-04] MED LIST changes: +DIPH-437 PO; +DOCU-94 PO
[2017-02-05 00:55] LABS: URINE APPEARANCE CLEAR (CLEAR); URINE BILIRUBIN NEG (NEG); URINE COLOR YELLOW; URINE NITRITE NEG (NEG); URINE PH 5.5 (4.5-7.5); URINE SPECIFIC GRAVITY 1.021 (1.000-1.030); UROBILINOGEN NEG (NEG)
[2017-02-05 01:03] LABS: MANUAL MICROSCOPIC REQUIRED? NO; REVIEW REQ? NO
== END ==
LOC: C.LABCC 08:31
PROVIDERS: ATTEND Internal Medicine
DX: R29.6 Repeated falls (principal); R82.90 Unspecified abnormal findings in urine

== ENCOUNTER → 2017-02-08 | Outpatient (CLI) | payer OTHER ==
[~2017-02-08] MED LIST changes: -DIPH-437 PO; -DOCU-94 PO; -ONDA8TAB13 SL
[2017-02-08 08:41] LABS: BASO % 0.5 %; BASO ABS # 0.04 K/uL (0-0.2); EOS % 4.8 %; HEMATOCRIT 29.5 % (37-47); IG% 0.3 %; LYMPH % 16.3 %; LYMPH ABS # 1.19 K/uL (1.2-3.4); MEAN CELL VOLUME 89.9 fL (80-100); MEAN CORPUSCULAR HEMOGLOBIN 27.1 pg (25-34); MEAN CORPUSCULAR HGB CONC 30.2 g/dl (32-36); MEAN PLATELET VOLUME 8.5 fL (7.4-10.4); NEUT % 63.1 %; PLATELET COUNT 441 K/uL (130-400); RED BLOOD COUNT 3.28 M/uL (4.2-5.4); WHITE BLOOD COUNT 7.32 K/uL (4.8-10.8)
[2017-02-08 09:06] LABS: COMPLETE YES; ECHINOCYTES 1+
== END ==
LOC: C.LABCC 07:49
PROVIDERS: ATTEND Internal Medicine
DX: D64.9 Anemia, unspecified (principal)

== ENCOUNTER 2017-02-16 01:10 | Emergency (ER) | payer OTHER ==
[~2017-02-16] VITALS: Ht 170.2 cm; Wt 71.0 kg
[~2017-02-16 01:10] MED LIST changes: -ACET-1311 PO; -ATOR-24 PO; -CLOP1TAB15 PO; -GLUC500T23 PO; -ONDA8TAB6 PO
[2017-02-16 01:22] VITALS: TEMP 36.6; Ht 170.2 cm; Wt 71.0 kg
[2017-02-16] MEDS ORDERED: SODIUM CHLORIDE 0.9% 250ML 250 ML IV STA (01:26)
[2017-02-16] MEDS ORDERED: SODIUM CHLORIDE 0.9% 1000ML 1,000 ML IV STA (01:26)
[2017-02-16] MEDS ORDERED: ATOR-24 PO (01:52)
[2017-02-16] MEDS ORDERED: CLOP1TAB15 PO (01:52)
[2017-02-16] MEDS ORDERED: HYDR-5688 PO (01:52)
[2017-02-16] MEDS ORDERED: MLXESC PO (01:52)
[2017-02-16] MEDS ORDERED: ACET-1311 PO (01:52)
[2017-02-16] MEDS ORDERED: FURO-85 PO (01:52)
[2017-02-16] MEDS ORDERED: ONDA8TAB6 PO (01:52)
[2017-02-16] MEDS ORDERED: GLUC500T23 PO (01:52)
[2017-02-16 02:09] LABS: BASO % 0.2 %; BASO ABS # 0.02 K/uL (0-0.2); COMPLETE YES; EOS % 5.3 %; HEMATOCRIT 32.4 % (37-47); IG% 0.3 %; LYMPH % 15.7 %; LYMPH ABS # 1.42 K/uL (1.2-3.4); MEAN CORPUSCULAR HEMOGLOBIN 26.7 pg (25-34); MEAN CORPUSCULAR HGB CONC 29.6 g/dl (32-36); MEAN PLATELET VOLUME 8.2 fL (7.4-10.4); MONO % 12.2 %; NEUT % 66.3 %; PLATELET COUNT 433 K/uL (130-400); WHITE BLOOD COUNT 9.07 K/uL (4.8-10.8)
--- NOTE | 2017-02-16 02:10 | EMERGENCY ROOM VISIT NOTE ---
History Report prepared by Britni: Jens Sood Under the Supervision of: Dr. Xiomara Tracey M.D. First contact with patient: :19 Chief Complaint: ALTERED MENTAL STATUS Stated Complaint: DEHYDRATION Nursing Triage Summary: Patient arrived via EMS from home. EMS reports patient family stated that patient was acting strangely earlier today speaking words that do not make sense. Patient is currently AOx3, sometimes confused to situation. Patient has a history of dementia and had a TIA in january. Patient expresses no complains, including chest pain or sob. Patient family was concerned of dehydration but do not know how much the patient drank today. Son Homero Hendrickson contact number is [phone]. History of Present Illness The patient is a 86 year old female who presents to the Emergency Room with an altered mental status starting earlier today. The patient states that she had a fall recently, and her son thought that she was talking strangely. The patient additionally states that she had a slight stroke a few weeks ago. She states that she has been eating and drinking well, though per the nursing staff she only had 100ml of fluids today. Additionally the patient has a history of dementia. The patient denies any chest pain, nausea, or headache. The patient states that she recently moved home from [facility]. Source of History: patient Onset: earlier today Position: other (global) Quality: other (altered mental status) Timing: constant Associated Symptoms: No headache, No chest pain, No SOB, No nausea Review of Systems See HPI for pertinent positives & negatives. A total of 10 systems reviewed and were otherwise negative. Past Medical & Surgical Medical Problems: (1) CVA (cerebral vascular accident) (2) Dementia (3) Fall (4) HTN (hypertension) (5) Pernicious anemia (6) Rheumatoid arthritis Surgical Problems: (1) History of tonsillectomy (2) History of total left hip arthroplasty Family History Depression FHx: cancer Social History Smoking Status: Never Smoker Alcohol Use: none Drug Use: none Marital Status: Housing Status: lives alone Occupation Status: retired Current/Historical Medications Scheduled Alendronate Sodium (Fosamax), 1 TAB PO WK Amlodipine (Norvasc), 5 MG PO QAM Aspirin (Aspirin Ec), 81 MG PO QPM Atorvastatin (Lipitor), 40 MG PO HS Cholecalciferol (Vitamin D3), 1 TAB PO QAM Clopidogrel (Plavix), 75 MG PO QAM Folic Acid (Folvite), 1 TAB PO QAM Glucosamine-Chondroitin (Glucosamine/Chondroitin), 1 TAB PO TID Oxybutynin Chloride Er (Ditropan Xl), 10 MG PO QAM Scheduled PRN Acetaminophen (Tylenol), 650 MG PO Q6H PRN for Pain or Fever Aluminum/Magnesium/Simeth (Mag-Al Plus Xs 400-400-40 mg/5Ml), 15 ML PO Q4H PRN for Dyspepsia Furosemide (Lasix), 20 MG PO Q2D PRN for EDEMA Hydrocodone/Acetaminophen 5MG/325MG ([place] 5MG/325MG), 1 TAB PO TID PRN for Pain Ondansetron Hcl (Zofran), 8 MG PO Q6H PRN for Nausea Miscellaneous Medications Diclofenac Sodium (Topical) (Voltaren 1% Top Gel), 1 DOSE TOP Allergies Coded Allergies: Diphenhydramine (Verified Adverse Reaction, Unknown, "increases dementia" , 02/16/17) Physical Exam Vital Signs Date Time Temp Pulse Resp B/P (MAP) Pulse Ox O2 Delivery O2 Flow Rate FiO2 02/16/17 04:32 71 16 143/75 93 Room Air 02/16/17 03:08 75 14 148/71 94 Room Air 02/16/17 01:41 71 02/16/17 01:22 36.6 74 18 139/62 94 Room Air Physical Exam Vital signs reviewed. General: Elderly but well appearing, in no significant distress. Slightly confused. Answers most questions appropriately. Not able to answer year and mildly confused on current situation. HEENT: Dry mucous membranes.No scleral icterus, PERRLA, neck supple. Atraumatic. Cardiovascular: Regular rate and rhythm, no extra sounds. Pulmonary: Clear to auscultation bilaterally, normal work of breathing. Abdomen: Soft, nontender, nondistended, positive bowel sounds. Musculoskeletal: Some erythema to the distal lower extremities bilaterally. Lower extremities are warm to the touch. No lymphangitic streaking or lesions. Atraumatic Neurologic: Patient awake alert and oriented x 3, full strength in all 4 extremities. Cranial nerves 2 through 12 grossly intact. Skin: Warm, dry, no rash Medical Decision & Procedures ER Provider Diagnostic Interpretation: X-ray results as stated below per interpretation by me: Chest X-ray: Mild interstitial prominence. No significant change from previous. CT results as stated below per my review and radiologist interpretation: CT HEAD: Compared with 01/16/15 No acute Intracranial abnormality. Stable senescent changes. Prominent ventricles likely due to central atrophy, cannot exclude NPH. Visualized paranasal sinuses and mastoid air cells are clear. Laboratory Results 02/16/17 01:55 Red Blood Count 3.60, Mean Corpuscular Volume 90.0, Mean Corpuscular Hemoglobin 26.7, Mean Corpuscular Hemoglobin Concent 29.6, Mean Platelet Volume 8.2, Neutrophils (%) (Auto) 66.3, Lymphocytes (%) (Auto) 15.7, Monocytes (%) (Auto) 12.2, Eosinophils (%) (Auto) 5.3, Basophils (%) (Auto) 0.2, Neutrophils # (Auto ) 6.01, Lymphocytes # (Auto) 1.42, Monocytes # (Auto) 1.11, Eosinophils # (Auto ) 0.48, Basophils # (Auto) 0.02 02/16/17 01:55 Test 02/16/17 01:55 02/16/17 02:02 02/16/17 02:15 White Blood Count 9.07 K/uL (4.8-10.8) Red Blood Count 3.60 M/uL (4.2-5.4) Hemoglobin 9.6 g/dL (12.0-16.0) Hematocrit 32.4 % (37-47) Mean Corpuscular Volume 90.0 fL (80-100) Mean Corpuscular Hemoglobin 26.7 pg (25-34) Mean Corpuscular Hemoglobin Concent 29.6 g/dl (32-36) Platelet Count 433 K/uL (130-400) Mean Platelet Volume 8.2 fL (7.4-10.4) Neutrophils (%) (Auto) 66.3 % Lymphocytes (%) (Auto) 15.7 % Monocytes (%) (Auto) 12.2 % Eosinophils (%) (Auto) 5.3 % Basophils (%) (Auto) 0.2 % Neutrophils # (Auto) 6.01 K/uL (1.4-6.5) Lymphocytes # (Auto) 1.42 K/uL (1.2-3.4) Monocytes # (Auto) 1.11 K/uL (0.11-0.59) Eosinophils # (Auto) 0.48 K/uL (0-0.5) Basophils # (Auto) 0.02 K/uL (0-0.2) RDW Standard Deviation 48.7 fL (36.4-46.3) RDW Coefficient of Variation 14.8 % (11.5-14.5) Immature Granulocyte % (Auto) 0.3 % Immature Granulocyte # (Auto) 0.03 K/uL (0.00-0.02) Anion Gap 2.0 mmol/L (3-11) Est Creatinine Clear Calc Drug Dose 54.3 ml/min Estimated GFR () 88.8 Estimated GFR (Non- 76.6 BUN/Creatinine Ratio 30.5 (10-20) Calcium Level 8.6 mg/dl (8.5-10.1) Magnesium Level 2.3 mg/dl (1.8-2.4) Total Bilirubin 0.3 mg/dl (0.2-1) Direct Bilirubin < 0.1 mg/dl (0-0.2) Aspartate Amino Transf (AST/SGOT) 10 U/L (15-37) Alanine Aminotransferase (ALT/SGPT) 15 U/L (12-78) Alkaline Phosphatase 89 U/L (45-117) Total Creatine Kinase 46 U/L (26-192) Creatine Kinase MB 0.8 ng/ml (0.5-3.6) Creatine Kinase MB Ratio 1.7 (0-3.0) Total Protein 6.5 gm/dl (6.4-8.2) Albumin 2.2 gm/dl (3.4-5.0) Thyroid Stimulating Hormone (TSH) 1.570 uIu/ml (0.300-4.500) Bedside Troponin I < 0.030 ng/ml (0-0.045) Urine Color YELLOW Urine Appearance CLEAR (CLEAR) Urine pH 5.0 (4.5-7.5) Urine Specific [place] 1.023 (1.000-1.030) Urine Protein NEG (NEG) Urine Glucose (UA) NEG (NEG) Urine Ketones NEG (NEG) Urine Occult Blood NEG (NEG) Urine Nitrite NEG (NEG) Urine Bilirubin NEG (NEG) Urine Urobilinogen NEG (NEG) Urine Leukocyte Esterase NEG (NEG) Laboratory results per my review. Medications Administered Medications (Trade) Dose Ordered Sig/Ralph Route Start Time Stop Time Status Last Admin Dose Admin Sodium Chloride 250 ml @ 999 mls/hr Q16M STAT IV 02/16/17 01:26 02/16/17 01:41 DC 02/16/17 01:26 999 MLS/HR Sodium Chloride 1,000 ml @ 125 mls/hr Q8H STAT IV 02/16/17 01:26 02/16/17 09:25 02/16/17 01:26 125 MLS/HR ECG Indication: altered mental status Rate (beats per minute): 75 Rhythm: normal sinus Findings: no acute ischemic change, no ectopy ED Course 0119: Past medical records reviewed. The patient was evaluated in room A10. A complete history and physical examination was performed. 0126: Sodium Chloride 1000 ml @ 125 mls/hr IV, Sodium Chloride 250 ml @ 999 mls/ hr IV 0355: Upon reevaluation, the patient appeared to have improvement of her symptoms. I discussed findings with her. She verbalized agreement of the treatment plan. She was discharged home. Medical Decision Differential diagnosis: Etiologies such as metabolic, infection, hypoglycemia, electrolyte abnormalities , cardiac sources, intracerebral event, toxicologic, neurologic, as well as others were entertained. This patient was evaluated and appeared to be in no significant distress. IV access was obtained and laboratory work was drawn. Head CT was performed and reveals no evidence of acute intracranial abnormality. Chest x-ray was obtained and to my interpretation shows a mild interstitial prominence. Urinalysis is negative. Laboratory work reveals no specific derangement. Patient was able to ambulate to the restroom and seems to be interacting appropriately. She did just return from the custodial several days ago to her house. She may be having some sunding changes readjusting to a different situation. At this time she will be discharged to follow-up with her primary care physician for reevaluation. Medication Reconcilliation Current Medication List: was personally reviewed by me Blood Pressure Screening Patient's blood pressure: Elevated blood pressure Blood pressure disposition: Elevated BP felt to be situational, Referred to PCP Impression Primary Impression: Confusion, hx of, without neuro findings Scribe Attestation The scribe's documentation has been prepared under my direction and personally reviewed by me in its entirety. I confirm that the note above accurately reflects all work, treatment, procedures, and medical decision making performed by me. Departure Information Dispostion Home / Self-Care Referrals No Doctor, Assigned (PCP) Forms HOME CARE DOCUMENTATION FORM, IMPORTANT VISIT INFORMATION Patient Instructions [facility] Additional Instructions Diagnosis: Confusion Continue medications as prescribed Follow up with your doctor this week for reevaluation Return to the ED for worsening of symptoms or any medical concerns.
[2017-02-16 02:25] LABS: URINE APPEARANCE CLEAR (CLEAR); URINE BILIRUBIN NEG (NEG); URINE COLOR YELLOW; URINE NITRITE NEG (NEG); URINE SPECIFIC GRAVITY 1.023 (1.000-1.030); UROBILINOGEN NEG (NEG); ZZUR CULT IF INDIC CLEAN CATCH NO
[2017-02-16 02:31] LABS: ALT/SGPT 15 U/L (12-78); AST/SGOT 10 U/L (15-37); BLOOD UREA NITROGEN 22 mg/dl (7-18); BUN/CREATININE RATIO 30.5 (10-20); CALCIUM 8.6 mg/dl (8.5-10.1); CARBON DIOXIDE 31 mmol/L (21-32); CHLORIDE 106 mmol/L (98-107); CREATININE 0.71 mg/dl (0.60-1.20); GLUCOSE 99 mg/dl (70-99); MAGNESIUM 2.3 mg/dl (1.8-2.4); POTASSIUM 4.4 mmol/L (3.5-5.1); SODIUM 139 mmol/L (136-145)
[2017-02-16 02:34] LABS: MANUAL MICROSCOPIC REQUIRED? NO; REVIEW REQ? NO
[2017-02-16 02:41] LABS: ALKALINE PHOSPHATASE 89 U/L (45-117); CKMB/CK RATIO 1.7 (0-3.0)
--- NOTE | 2017-02-16 06:27 | DIAGNOSTIC IMAGING REPORT ---
CT HEAD WITHOUT CONTRAST (CT) CLINICAL HISTORY: Altered mental status. History of dementia. History of TIA. COMPARISON STUDY: 01/26/2017 TECHNIQUE: Axial CT of the brain is performed from the vertex to the skull base. IV contrast was not administered for this examination. A dose lowering technique was utilized adhering to the principles of ALARA. CT DOSE: 537.48 mGy.cm FINDINGS: No intra or extra-axial mass lesions are visualized. There is no CT evidence of acute cortical infarction. There is no evidence of midline shift. There is no acute hemorrhage. No calvarial fractures are visualized. There are patchy white matter hypodensities likely on a small vessel basis. There is stable ventricular dilatation, perhaps slightly out of proportion to the degree of cortical atrophy. There is no evidence of acute sinusitis IMPRESSION: 1. No acute intracranial findings 2. Stable ventricular dilatation Electronically signed by: Keith Aldana M.D. 02/16/2017 6:26 AM Dictated Date/Time: 02/16/2017 6:25 AM
--- NOTE | 2017-02-16 06:50 | DIAGNOSTIC IMAGING REPORT ---
CHEST ONE VIEW PORTABLE CLINICAL HISTORY: Acute change in mental status COMPARISON STUDY: 01/26/2017 FINDINGS: The heart is at the upper limits of normal in size. There is mild residual thickening. There is no focal pulmonary consolidation. There is no overt failure. No pleural effusions are visualized.[ IMPRESSION: Mild interstitial thickening. No evidence of focal pulmonary consolidation Electronically signed by: Keith Aldana M.D. 02/16/2017 6:49 AM Dictated Date/Time: 02/16/2017 6:48 AM
--- NOTE | 2017-02-16 11:02 | EMERGENCY ROOM VISIT NOTE ---
ED Visit Note First contact with patient: 11:[id number] the patient was signed off to me at change of shift from Dr. Tracey. I reexamined the patient. The patient was to be discharged home but a family member felt that she should go to a nursing facility. A PT and OT consultation was placed. The patient was accepted at [facility] and will be transported there.
[2017-02-16 15:14] VITALS: BP 178/82; PULSE 78; O2SAT 96
== END 2017-02-16 15:15 ==
LOC: EDBD 01:10 → C.EDA 01:12
DX: R41.0 Disorientation, unspecified (principal); I10 Essential (primary) hypertension; F03.90 Unspecified dementia, unspecified severity, without behavioral disturbance, psychotic disturbance, mood disturbance, and anxiety; M06.9 Rheumatoid arthritis, unspecified; Z86.73 Personal history of transient ischemic attack (TIA), and cerebral infarction without residual deficits; Z91.81 History of falling; Z96.642 Presence of left artificial hip joint; Z98.890 Other specified postprocedural states; Z79.82 Long term (current) use of aspirin; Z79.899 Other long term (current) drug therapy; Z88.8 Allergy status to other drugs, medicaments and biological substances; Z81.8 Family history of other mental and behavioral disorders; Z80.9 Family history of malignant neoplasm, unspecified

== ENCOUNTER → 2017-03-02 | Outpatient (CLI) | payer OTHER ==
[~2017-03-02] MED LIST changes: -ACET-1256 PO; +ACET-1311 PO; +ATOR-24 PO; +CLOP1TAB15 PO; -DLC5 PO; -GLUC1CAP35 PO; +GLUC500T23 PO; -LPT20 PO; -MOMLX PO; +ONDA8TAB6 PO; -PLV75 PO
[2017-03-02 17:46] LABS: MANUAL MICROSCOPIC REQUIRED? NO; REVIEW REQ? NO; URINE APPEARANCE TURBID (CLEAR); URINE BILIRUBIN NEG (NEG); URINE COLOR YELLOW; URINE EPITHELIAL CELL AUTO >30 /lpf (0-5); URINE NITRITE POS (NEG); URINE SPECIFIC GRAVITY 1.015 (1.000-1.030); UROBILINOGEN NEG (NEG); ZZUR CULT IF INDIC CLEAN CATCH YES
== END ==
LOC: C.LABSPEC 16:41
PROVIDERS: ATTEND Internal Medicine
DX: R41.82 Altered mental status, unspecified (principal)

== ENCOUNTER 2017-10-13 13:14 | Emergency (ER) | payer OTHER ==
[~2017-10-13 13:14] MED LIST changes: -FOLI1TAB7 PO; +FOLI1TAB8 PO; +ONDA-170 PO; -ONDA8TAB6 PO
[2017-10-13 13:27] VITALS: TEMP 36.7; Ht 172.7 cm
--- NOTE | 2017-10-13 13:45 | EMERGENCY ROOM VISIT NOTE ---
History Report prepared by Britni: Radha Vaughn Under the Supervision of: Dr. Kiko Faust M.D. First contact with patient: 13:31 Chief Complaint: FALL Stated Complaint: FALL,HEADACHE,LEFT HIP PAIN History of Present Illness The patient is a 87 year old female who presents to the Emergency Room with complaints of a fall 7 days officer captain. She states she slid on the floor because it was slippery and she fell to the ground. She is accompanied by her friend who reports that she hit her head and has been reporting headaches since. No recurrent falls. The patient states her right hip is hurting and she has intermittent neck pain but denies any chest pain, abdominal pain, or arm pain. Patient has a history of dementia. Source of History: patient, friend Onset: a couple of days officer captain Position: other (global) Quality: other (fall) Timing: intermittent Associated Symptoms: + neck pain, No chest pain, No abdominal pain Note: Negative arm pain. Review of Systems See HPI for pertinent positives and negatives. A total of ten systems were reviewed and were otherwise negative. Past Medical & Surgical Medical Problems: (1) CVA (cerebral vascular accident) (2) Dementia (3) Fall (4) HTN (hypertension) (5) Pernicious anemia (6) Rheumatoid arthritis Surgical Problems: (1) History of tonsillectomy (2) History of total left hip arthroplasty Family History Depression FHx: cancer Social History Smoking Status: Never Smoker Alcohol Use: none Drug Use: none Marital Status: Housing Status: lives alone Occupation Status: retired Current/Historical Medications Scheduled Acetaminophen (Tylenol), 650 MG PO TID Alendronate Sodium (Fosamax), 1 TAB PO WK Amlodipine (Norvasc), 5 MG PO QAM Aspirin (Aspirin Ec), 81 MG PO QPM Atorvastatin (Lipitor), 40 MG PO HS Clopidogrel (Plavix), 75 MG PO QAM Diclofenac Sodium (Topical) (Voltaren 1% Top Gel), 1 DOSE TOP TID Folic Acid (Folvite), 1 TAB PO QAM Glucosamine-Chondroitin (Glucosamine/Chondroitin), 1 TAB PO TID Oxybutynin Chloride Er (Ditropan Xl), 10 MG PO QAM Polyethylene Glycol 3350 (Miralax), 17 GM PO UD Triamcinolone Acet (Aristocort 0.1%), 0 TOP BID Scheduled PRN Hydrocodone/Acetaminophen 5MG/325MG (Westley 5MG/325MG), 1 TAB PO TID PRN for Pain Allergies Coded Allergies: Diphenhydramine (Verified Adverse Reaction, Unknown, "increases dementia" , 10/13/17) Physical Exam Vital Signs Date Time Temp Pulse Resp B/P (MAP) Pulse Ox O2 Delivery O2 Flow Rate FiO2 10/13/17 15:18 79 16 137/71 94 10/13/17 13:39 75 16 154/73 97 Room Air 10/13/17 13:27 36.7 83 16 149/79 95 Room Air Physical Exam Physical Exam GENERAL: She does not appear distressed. ____ HENT: Exam performed. Head: Normocephalic Right Ear: External ear normal. No mastoid tenderness. Left Ear: External ear normal. No mastoid tenderness. Mouth/Throat: The oropharynx is clear and moist. No trismus in the jaw. No dental abscesses or uvula swelling. No oropharyngeal exudate or tonsillar abscesses. ____ EYES: Conjunctivae and EOM are normal. Pupils are equal, round, and reactive to light. Right eye exhibits no discharge. Left eye exhibits no discharge. No scleral icterus. ____ NECK: Normal range of motion. Neck supple. No JVD present. No spinous process tenderness present. No carotid bruit present. No rigidity. No tracheal deviation and normal range of motion present. No Brudzinski's sign and no Kernig 's sign noted. ____ CV: Normal rate, regular rhythm, normal heart sounds and intact distal pulses. There is no peripheral edema. Palpable radial pulses bue. ____ PULM/CHEST: Effort normal and breath sounds normal. No respiratory distress. No stridor. She has no wheezes. She has no rales. Chest Wall: She exhibits no tenderness. ____ ABD: The abdomen is soft. Bowel sounds are normal. She has no distension. No mass is present. There is no tenderness. There is no rebound, no guarding, no Urrutia's sign and no tenderness at McBurney's point. Rovsig negative MUSC/SKEL: Normal range of motion. There is no peripheral edema, tenderness or deformity. Pelvis is stable. No CT or L-spine tenderness. Pain on palpation of the right hip. LYMPH: No cervical adenopathy. ____ NEURO: She is alert and oriented to person, place, and time. She has normal strength. No cranial nerve deficit or sensory deficit. Coordination and gait normal. GCS eye subscore is 4. GCS verbal subscore is 5. GCS motor subscore is 6. Cerebellar tests wnl. ____ SKIN: Skin is warm and dry. She is not diaphoretic. ____ PSYCH: She has a normal mood and affect. Her behavior is normal. Judgment and thought content normal. ____ Medical Decision & Procedures ER Provider Diagnostic Interpretation: Radiology results as stated below per my review and radiologist interpretation: PELVIS 1 OR 2 VIEW ROUTINE CLINICAL HISTORY: 87 years-old Female presenting with fall. TECHNIQUE: Single frontal view of the pelvis was obtained. COMPARISON: CT from 06/17/2016. FINDINGS: Postsurgical changes of total left hip arthroplasty. No periprosthetic fracture. No hardware complication. No malalignment. Osteopenia suspected. Bony pelvis intact allowing for osteopenia, which limits evaluation for nondisplaced fracture. Right hip joint congruent. Right femoral neck grossly normal. Marked stool burden. IMPRESSION: 1. No acute osseous injury of the pelvis allowing for osteopenia, which limits evaluation for nondisplaced fracture. 2. Left total hip arthroplasty without evidence of hardware complication. Electronically signed by: Fabiano Maldonado M.D. 10/13/2017 2:33 PM Dictated Date/Time: 10/13/2017 2:31 PM HEAD WITHOUT CONTRAST (CT) CLINICAL HISTORY: 87 years-old Female presenting with fall 1 week ago increasing bhagat and confusion. TECHNIQUE: Multidetector CT imaging of the head was performed without the use of intravenous contrast. IV contrast: None. A dose lowering technique was used consistent with the principles of ALARA (as low as reasonably achievable). COMPARISON: 02/16/2017. CT DOSE (mGy.cm): The estimated cumulative dose is 955.99. FINDINGS: Gas Check Pad Maker topogram: Unremarkable. Proportional ventricular and sulcal prominence with the exception of the vertex, which demonstrates relative sulcal effacement and gyral crowding. The callosal angle measures 65 degrees, which is abnormally acute though not significant changed from prior exam. Periventricular and subcortical white matter hypoattenuation, nonspecific but likely indicative of chronic small vessel ischemic change. No mass effect or midline shift. No hemorrhage or acute territorial infarct. No extra-axial fluid collection. Paranasal sinuses and mastoid air cells clear. Calvarium intact. IMPRESSION: 1. Findings could suggest normal pressure hydrocephalus. This is unchanged since the prior exam. 2. No other evidence of acute intracranial pathology. Chronic small vessel ischemic change. Electronically signed by: Fabiano Maldonado M.D. 10/13/2017 2:17 PM Dictated Date/Time: 10/13/2017 2:13 PM CERVICAL SPINE W/O CLINICAL HISTORY: 87 years-old Female presenting with fall 1 week ago neck pain. TECHNIQUE: Multidetector CT of the cervical spine was performed without the use of intravenous contrast. IV contrast: None. A dose lowering technique was used consistent with the principles of ALARA (as low as reasonably achievable). COMPARISON: Cervical spine radiographs from 01/27/2017. CT DOSE (mGy.cm): The estimated cumulative dose is 955.99 mGy.cm. FINDINGS: Gas Check Pad Maker topogram: Unremarkable. Reversal of normal cervical lordosis as seen on prior radiographs likely secondary to multilevel degenerative change. 4 mm of anterolisthesis of C7 on T1 also noted and also likely degenerative in etiology. The atlantodental interval measures 3 mm, which is borderline widened. Prominent degenerative change noted at the atlantoaxial articulation. No acute fracture or subluxation. Multilevel disc osteophyte complexes noted. No significant bony spurring. Intervertebral disc height loss noted from C3-4 through C6-7. Multilevel osseous neural foraminal narrowing. Aerated secretions in the sphenoid sinus. Nodule noted in the left thyroid lobe. Lung apices clear. IMPRESSION: 1. Significant multilevel degenerative changes. 2. No acute osseous injury. Electronically signed by: Fabiano Maldonado M.D. 10/13/2017 2:28 PM Dictated Date/Time: 10/13/2017 2:18 PM CHEST ONE VIEW PORTABLE CLINICAL HISTORY: 87 years-old Female presenting with FALL. TECHNIQUE: Portable upright AP view of the chest was obtained. COMPARISON: 02/16/2017. FINDINGS: Atherosclerosis of aortic arch. Cardiac silhouette enlarged. No focal opacity. No large effusion or pneumothorax. Degenerative changes of the shoulders. Upper abdomen normal. IMPRESSION: 1. Cardiomegaly. No other convincing evidence of acute cardiopulmonary disease. Electronically signed by: Fabiano Maldonado M.D. 10/13/2017 2:33 PM Dictated Date/Time: 10/13/2017 2:33 PM ED Course 1339: The patient was evaluated in room C1. A complete history and physical exam was performed. 1447: I checked on the patient at this time. She states she feels fine. She is no pain. Vital signs stable. Her imaging shows no acute injury. CT of the head showed possible normal pressure hydrocephalus. However the findings are unchanged from the findings done in February,. DISCHARGE - Plan of care discussed with patient and questions answered. The patient was given both verbal and printed discharge instructions. The patient verbalized understanding and ability to comply. The patient is to seek outpatient follow up as noted in the discharge instructions. The patient verbalized understanding and ability to comply. The patient is discharged in stable condition. The patient was instructed to return for worsening symptoms. Medical Decision Vital signs stable. Her imaging shows no acute injury. CT of the head showed possible normal pressure hydrocephalus. However the findings are unchanged from the findings done in February,. DISCHARGE - Plan of care discussed with patient and questions answered. The patient was given both verbal and printed discharge instructions. The patient verbalized understanding and ability to comply. The patient is to seek outpatient follow up as noted in the discharge instructions. The patient verbalized understanding and ability to comply. The patient is discharged in stable condition. The patient was instructed to return for worsening symptoms. Medication Reconcilliation Current Medication List: was personally reviewed by me Blood Pressure Screening Patient's blood pressure: Elevated blood pressure Blood pressure disposition: Elevated BP felt to be situational Impression Primary Impression: Fall Scribe Attestation The scribe's documentation has been prepared under my direction and personally reviewed by me in its entirety. I confirm that the note above accurately reflects all work, treatment, procedures, and medical decision making performed by me. The chart was completed utilizing [employer] Speech voice recognition software. Grammatical errors, random word insertions, pronoun errors, and incomplete sentences are an occasional consequence of this system due to software limitations, ambient noise, and hardware issues. Any formal questions or concerns about the content, text, or information contained within the body of this dictation should be directly addressed to the physician for clarification. Departure Information Dispostion Home / Self-Care Referrals Moose Wood M.D. (MEDICAL) (PCP) Forms HOME CARE DOCUMENTATION FORM, IMPORTANT VISIT INFORMATION Patient Instructions [facility] Problem Qualifiers Primary Impression: Fall Encounter type: initial encounter Qualified Codes: W19.XXXA - Unspecified fall, initial encounter
--- NOTE | 2017-10-13 14:19 | DIAGNOSTIC IMAGING REPORT ---
HEAD WITHOUT CONTRAST (CT) CLINICAL HISTORY: 87 years-old Female presenting with fall 1 week ago increasing bhagat and confusion. TECHNIQUE: Multidetector CT imaging of the head was performed without the use of intravenous contrast. IV contrast: None. A dose lowering technique was used consistent with the principles of ALARA (as low as reasonably achievable). COMPARISON: 02/16/2017. CT DOSE (mGy.cm): The estimated cumulative dose is 955.99. FINDINGS: Laboratory Veterinarian topogram: Unremarkable. Proportional ventricular and sulcal prominence with the exception of the vertex, which demonstrates relative sulcal effacement and gyral crowding. The callosal angle measures 65 degrees, which is abnormally acute though not significant changed from prior exam. Periventricular and subcortical white matter hypoattenuation, nonspecific but likely indicative of chronic small vessel ischemic change. No mass effect or midline shift. No hemorrhage or acute territorial infarct. No extra-axial fluid collection. Paranasal sinuses and mastoid air cells clear. Calvarium intact. IMPRESSION: 1. Findings could suggest normal pressure hydrocephalus. This is unchanged since the prior exam. 2. No other evidence of acute intracranial pathology. Chronic small vessel ischemic change. Electronically signed by: Fabiano Maldonado M.D. 10/13/2017 2:17 PM Dictated Date/Time: 10/13/2017 2:13 PM
--- NOTE | 2017-10-13 14:29 | DIAGNOSTIC IMAGING REPORT ---
CERVICAL SPINE W/O CLINICAL HISTORY: 87 years-old Female presenting with fall 1 week ago neck pain. TECHNIQUE: Multidetector CT of the cervical spine was performed without the use of intravenous contrast. IV contrast: None. A dose lowering technique was used consistent with the principles of ALARA (as low as reasonably achievable). COMPARISON: Cervical spine radiographs from 01/27/2017. CT DOSE (mGy.cm): The estimated cumulative dose is 955.99 mGy.cm. FINDINGS: Video Games Mechanic topogram: Unremarkable. Reversal of normal cervical lordosis as seen on prior radiographs likely secondary to multilevel degenerative change. 4 mm of anterolisthesis of C7 on T1 also noted and also likely degenerative in etiology. The atlantodental interval measures 3 mm, which is borderline widened. Prominent degenerative change noted at the atlantoaxial articulation. No acute fracture or subluxation. Multilevel disc osteophyte complexes noted. No significant bony spurring. Intervertebral disc height loss noted from C3-4 through C6-7. Multilevel osseous neural foraminal narrowing. Aerated secretions in the sphenoid sinus. Nodule noted in the left thyroid lobe. Lung apices clear. IMPRESSION: 1. Significant multilevel degenerative changes. 2. No acute osseous injury. Electronically signed by: Fabiano Maldonado M.D. 10/13/2017 2:28 PM Dictated Date/Time: 10/13/2017 2:18 PM
--- NOTE | 2017-10-13 14:34 | DIAGNOSTIC IMAGING REPORT ---
PELVIS 1 OR 2 VIEW ROUTINE CLINICAL HISTORY: 87 years-old Female presenting with fall. TECHNIQUE: Single frontal view of the pelvis was obtained. COMPARISON: CT from 06/17/2016. FINDINGS: Postsurgical changes of total left hip arthroplasty. No periprosthetic fracture. No hardware complication. No malalignment. Osteopenia suspected. Bony pelvis intact allowing for osteopenia, which limits evaluation for nondisplaced fracture. Right hip joint congruent. Right femoral neck grossly normal. Marked stool burden. IMPRESSION: 1. No acute osseous injury of the pelvis allowing for osteopenia, which limits evaluation for nondisplaced fracture. 2. Left total hip arthroplasty without evidence of hardware complication. Electronically signed by: Fabiano Maldonado M.D. 10/13/2017 2:33 PM Dictated Date/Time: 10/13/2017 2:31 PM
--- NOTE | 2017-10-13 14:35 | DIAGNOSTIC IMAGING REPORT ---
CHEST ONE VIEW PORTABLE CLINICAL HISTORY: 87 years-old Female presenting with FALL. TECHNIQUE: Portable upright AP view of the chest was obtained. COMPARISON: 02/16/2017. FINDINGS: Atherosclerosis of aortic arch. Cardiac silhouette enlarged. No focal opacity. No large effusion or pneumothorax. Degenerative changes of the shoulders. Upper abdomen normal. IMPRESSION: 1. Cardiomegaly. No other convincing evidence of acute cardiopulmonary disease. Electronically signed by: Fabiano Maldonado M.D. 10/13/2017 2:33 PM Dictated Date/Time: 10/13/2017 2:33 PM
[2017-10-13] MEDS ORDERED: POLY335019 PO (14:41)
[2017-10-13] MEDS ORDERED: TRMCR130WC TOP (14:46)
[2017-10-13 15:18] VITALS: BP 137/71; PULSE 79; O2SAT 94
== END 2017-10-13 15:15 | disposition home or self-care (01) ==
LOC: C.EDB 13:19 → C.EDC 15:15
DX: S09.90XA Unspecified injury of head, initial encounter (principal); R51 Headache; M25.551 Pain in right hip; I51.7 Cardiomegaly; W18.39XA Other fall on same level, initial encounter; M06.9 Rheumatoid arthritis, unspecified; I10 Essential (primary) hypertension; F03.90 Unspecified dementia, unspecified severity, without behavioral disturbance, psychotic disturbance, mood disturbance, and anxiety; Z86.73 Personal history of transient ischemic attack (TIA), and cerebral infarction without residual deficits; Z96.642 Presence of left artificial hip joint; Z79.82 Long term (current) use of aspirin; Z88.8 Allergy status to other drugs, medicaments and biological substances

== ENCOUNTER 2017-11-26 12:05 | Emergency (ER) | payer OTHER ==
[~2017-11-26] VITALS: Ht 172.7 cm; Wt 66.9 kg
[~2017-11-26 12:05] MED LIST changes: -CHOL1000 PO; -FURO-85 PO; -MLXESC PO; -ONDA-170 PO; +POLY335019 PO; +TRMCR130WC TOP
[2017-11-26 12:08] VITALS: TEMP 36.7; Ht 172.7 cm; Wt 66.9 kg
[2017-11-26] MEDS ORDERED: SODIUM CHLORIDE 0.9% 1000ML 1,000 ML IV STA (12:19)
--- NOTE | 2017-11-26 12:32 | EMERGENCY ROOM VISIT NOTE ---
History Report prepared by Britni: Radha Vaughn Under the Supervision of: Dr. Xiomara Tracey M.D. First contact with patient: 12:13 Chief Complaint: DEHYDRATION Stated Complaint: POSSIBLE DEHYDRATION History of Present Illness The patient is a 87 year old female who presents to the Emergency Room with complaints of possible dehydration for the past 2 weeks. She states she has not been drinking much because she is not thirsty. She states she has been very weak but denies any vomiting, diarrhea, chest pain, or SOB. The patient is accompanied by her caregiver who states that the patient's family reports that she thought she was at the [facility] and she has been extremely confused lately. Her caregiver also states that the patient has been extremely emotional and tearful over the past 2 weeks and relates this to her grandson being so far far away and not visiting as often. Her caregiver also notes that the patient has a history of dementia. When asked the year and month, the patient thought it was 2005 and January or February "due to the rain." Source of History: patient, caregiver Onset: 2 weeks banquet captain Position: head, other (upper and lower extremities) Quality: other (possible dehydration) Modifying Factors (Worsening): other (having her grandson so far away) Associated Symptoms: + weakness, No chest pain, No SOB, No vomiting, No diarrhea Note: Positive tearfulness and increased emotion Review of Systems See HPI for pertinent positives & negatives. A total of 10 systems reviewed and were otherwise negative. Past Medical & Surgical Medical Problems: (1) CVA (cerebral vascular accident) (2) Dementia (3) Fall (4) HTN (hypertension) (5) Pernicious anemia (6) Rheumatoid arthritis Surgical Problems: (1) History of tonsillectomy (2) History of total left hip arthroplasty Family History Depression FHx: cancer Social History Smoking Status: Never Smoker Alcohol Use: none Drug Use: none Marital Status: Housing Status: lives alone Occupation Status: retired Current/Historical Medications Scheduled Acetaminophen (Tylenol), 650 MG PO TID Alendronate Sodium (Fosamax), 1 TAB PO WK Amlodipine (Norvasc), 5 MG PO QAM Aspirin (Aspirin Ec), 81 MG PO QPM Atorvastatin (Lipitor), 40 MG PO HS Ciprofloxacin Tab (Cipro), 250 MG PO BID Clopidogrel (Plavix), 75 MG PO QAM Diclofenac Sodium (Topical) (Voltaren 1% Top Gel), 1 DOSE TOP TID Folic Acid (Folvite), 1 TAB PO QAM Oxybutynin Chloride Er (Ditropan Xl), 10 MG PO QAM Polyethylene Glycol 3350 (Miralax), 17 GM PO UD Triamcinolone Acet (Aristocort 0.1%), 0 TOP BID Scheduled PRN Hydrocodone/Acetaminophen 5MG/325MG ([place] 5MG/325MG), 1 TAB PO TID PRN for Pain Allergies Coded Allergies: Diphenhydramine (Verified Adverse Reaction, Mild, "increases dementia", ) Physical Exam Vital Signs Date Time Temp Pulse Resp B/P (MAP) Pulse Ox O2 Delivery O2 Flow Rate FiO2 11/26/17 15:07 68 18 118/86 98 Room Air 11/26/17 13:59 67 96 11/26/17 13:35 140/67 11/26/17 12:54 63 15 142/70 95 Room Air 11/26/17 12:08 36.7 69 18 158/79 93 Room Air Physical Exam Vital signs reviewed. General: Well-appearing elderly female, in no significant distress. HEENT: No scleral icterus, PERRLA, neck supple. Atraumatic. Cardiovascular: Regular rate and rhythm. Slight systolic ejection murmur. Pulmonary: Clear to auscultation bilaterally, normal work of breathing. Abdomen: Soft, nontender, nondistended, positive bowel sounds. Musculoskeletal: Atraumatic, no peripheral edema. Neurologic: Patient awake alert but confused to month and year and events preceding the visit. full strength in all 4 extremities. Cranial nerves 2 through 12 grossly intact. Skin: Warm, dry, no rash Medical Decision & Procedures ER Provider Diagnostic Interpretation: Radiology results as stated below per my review and radiologist interpretation: CT OF THE HEAD WITHOUT CONTRAST CLINICAL HISTORY: Altered mental status. COMPARISON STUDY: Head CT October 13, 2017. CT DOSE: 537.48 mGy.cm TECHNIQUE: Helical axial images of the head were obtained without IV contrast. Automated exposure control was utilized for the study. A dose lowering technique was utilized adhering to the principles of ALARA. FINDINGS: No acute intracranial hemorrhage, midline shift or mass effect is present. Ventricular dilatation is unchanged. The basilar cisterns are patent. There are no extra axial collections. White matter hypodensity suggests small vessel disease. There are no findings to suggest acute dural sinus thrombosis or acute territorial infarct. There are no significant calvarial abnormalities. A small amount of secretions within the right sphenoid sinus have diminished since exam of October 13, 2017. Mastoid air cells are clear. IMPRESSION: No acute intracranial findings. No change since previous exam. Electronically signed by: Lex Franco M.D. 11/26/2017 1:26 PM SINGLE VIEW CHEST CLINICAL HISTORY: Change in mental status. FINDINGS: An AP, portable, upright chest radiograph is compared to study dated 10/13/2017 and correlated with chest CT dated 10/29/2014. The examination is degraded by portable technique and patient rotation. The heart is enlarged and there is atherosclerotic calcification of the thoracic aorta. There is chronic interstitial thickening, similar to previous. Left basilar atelectasis is observed. No airspace consolidation or large pleural effusion is identified. No pneumothorax is seen. The skeletal structures are osteopenic. Advanced degenerative change is seen in the shoulders and thoracic spine. IMPRESSION: Cardiomegaly with no acute cardiopulmonary abnormality. Electronically signed by: Bhavesh Shannon M.D. 11/26/2017 1:57 PM Laboratory Results 11/26/17 14:06 Red Blood Count 4.04, Mean Corpuscular Volume 90.6, Mean Corpuscular Hemoglobin 28.0, Mean Corpuscular Hemoglobin Concent 30.9, Mean Platelet Volume 8.6, Neutrophils (%) (Auto) 67.3, Lymphocytes (%) (Auto) 15.7, Monocytes (%) (Auto) 10.1, Eosinophils (%) (Auto) 6.3, Basophils (%) (Auto) 0.5, Neutrophils # (Auto ) 5.41, Lymphocytes # (Auto) 1.26, Monocytes # (Auto) 0.81, Eosinophils # (Auto ) 0.51, Basophils # (Auto) 0.04 11/26/17 14:06 Test 11/26/17 13:55 11/26/17 14:06 Urine Color YELLOW Urine Appearance CLOUDY (CLEAR) Urine pH 6.5 (4.5-7.5) Urine Specific [place] 1.009 (1.000-1.030) Urine Protein NEG (NEG) Urine Glucose (UA) NEG (NEG) Urine Ketones NEG (NEG) Urine Occult Blood NEG (NEG) Urine Nitrite POS (NEG) Urine Bilirubin NEG (NEG) Urine Urobilinogen NEG (NEG) Urine Leukocyte Esterase LARGE (NEG) Urine WBC (Auto) >30 /hpf (0-5) Urine RBC (Auto) 0-4 /hpf (0-4) Urine Hyaline Casts (Auto) 0 /lpf (0-5) Urine Epithelial Cells (Auto) 5-10 /lpf (0-5) Urine Bacteria (Auto) 4+ (NEG) White Blood Count 8.04 K/uL (4.8-10.8) Red Blood Count 4.04 M/uL (4.2-5.4) Hemoglobin 11.3 g/dL (12.0-16.0) Hematocrit 36.6 % (37-47) Mean Corpuscular Volume 90.6 fL (80-100) Mean Corpuscular Hemoglobin 28.0 pg (25-34) Mean Corpuscular Hemoglobin Concent 30.9 g/dl (32-36) Platelet Count 345 K/uL (130-400) Mean Platelet Volume 8.6 fL (7.4-10.4) Neutrophils (%) (Auto) 67.3 % Lymphocytes (%) (Auto) 15.7 % Monocytes (%) (Auto) 10.1 % Eosinophils (%) (Auto) 6.3 % Basophils (%) (Auto) 0.5 % Neutrophils # (Auto) 5.41 K/uL (1.4-6.5) Lymphocytes # (Auto) 1.26 K/uL (1.2-3.4) Monocytes # (Auto) 0.81 K/uL (0.11-0.59) Eosinophils # (Auto) 0.51 K/uL (0-0.5) Basophils # (Auto) 0.04 K/uL (0-0.2) RDW Standard Deviation 48.5 fL (36.4-46.3) RDW Coefficient of Variation 14.5 % (11.5-14.5) Immature Granulocyte % (Auto) 0.1 % Immature Granulocyte # (Auto) 0.01 K/uL (0.00-0.02) Anion Gap 7.0 mmol/L (3-11) Est Creatinine Clear Calc Drug Dose 60.3 ml/min Estimated GFR () 91.9 Estimated GFR (Non- 79.3 BUN/Creatinine Ratio 20.9 (10-20) Calcium Level 8.7 mg/dl (8.5-10.1) Magnesium Level 2.3 mg/dl (1.8-2.4) Total Bilirubin 0.3 mg/dl (0.2-1) Direct Bilirubin < 0.1 mg/dl (0-0.2) Aspartate Amino Transf (AST/SGOT) 13 U/L (15-37) Alanine Aminotransferase (ALT/SGPT) 11 U/L (12-78) Alkaline Phosphatase 97 U/L (45-117) Troponin I < 0.015 ng/ml (0-0.045) Total Protein 7.0 gm/dl (6.4-8.2) Albumin 2.7 gm/dl (3.4-5.0) Thyroid Stimulating Hormone (TSH) 0.990 uIu/ml (0.300-4.500) Date/Time Source Procedure Growth Status 11/26/17 13:55 Urine , Clean Catch Urine Culture - Final MORE THAN THREE TYPES OF ORGANISMS AK... Complete Laboratory results per my review. Medications Administered Medications (Trade) Dose Ordered Sig/Ralph Route Start Time Stop Time Status Last Admin Dose Admin Sodium Chloride 1,000 ml @ 125 mls/hr Q8H STAT IV 11/26/17 12:19 11/26/17 16:17 DC 11/26/17 13:35 125 MLS/HR Ciprofloxacin (Cipro Tab) 250 mg NOW STAT PO 11/26/17 15:25 11/26/17 15:26 DC 11/26/17 15:49 250 MG ED Course 1214: Past medical records reviewed. The patient was evaluated in room A11. A complete history and physical examination was performed. Medical Decision Differential diagnosis: Etiologies such as metabolic, infection, hypoglycemia, electrolyte abnormalities , cardiac sources, intracerebral event, toxicologic, neurologic, as well as others were entertained. This patient was evaluated and appeared to be in no significant distress. Physical examination reveals no evidence of acute abnormality. The patient is somewhat confused but seems to be at her baseline according to the caregiver at the bedside. Laboratory work is fairly unrevealing. Head CT is negative for acute pathology. EKG reveals no evidence of acute ischemia. The patient was started on IV normal saline solution. Urinalysis was obtained and reveals evidence of infection with positive nitrates and leukocyte Estrace. In review of patient's records, she has had a Pseudomonas UTI in the past. She was given p.o. Cipro 250 mg twice daily for 5 days. Caregiver feels comfortable taking her home. She does have 24 hour in-home care. They were instructed to encourage p.o. fluids. Patient will follow up with her PCP within the week for reevaluation and return to the ER for worsening of symptoms or any medical concerns. Medication Reconcilliation Current Medication List: was personally reviewed by me Blood Pressure Screening Patient's blood pressure: Elevated blood pressure Blood pressure disposition: Elevated BP felt to be situational Impression Primary Impression: UTI (urinary tract infection) Additional Impression: Dementia Scribe Attestation The scribe's documentation has been prepared under my direction and personally reviewed by me in its entirety. I confirm that the note above accurately reflects all work, treatment, procedures, and medical decision making performed by me. Departure Information Dispostion Home / Self-Care Prescriptions Ciprofloxacin Tab (Cipro) 250 Mg Tab 250 MG PO BID for 5 Days, #10 TAB Prov: Xiomara Tracey M.D. 11/26/17 Referrals Moose Wood M.D. (MEDICAL) (PCP) Patient Instructions [facility] Problem Qualifiers
--- NOTE | 2017-11-26 13:27 | DIAGNOSTIC IMAGING REPORT ---
CT OF THE HEAD WITHOUT CONTRAST CLINICAL HISTORY: Altered mental status. COMPARISON STUDY: Head CT October 13, 2017. CT DOSE: 537.48 mGy.cm TECHNIQUE: Helical axial images of the head were obtained without IV contrast. Automated exposure control was utilized for the study. A dose lowering technique was utilized adhering to the principles of ALARA. FINDINGS: No acute intracranial hemorrhage, midline shift or mass effect is present. Ventricular dilatation is unchanged. The basilar cisterns are patent. There are no extra axial collections. White matter hypodensity suggests small vessel disease. There are no findings to suggest acute dural sinus thrombosis or acute territorial infarct. There are no significant calvarial abnormalities. A small amount of secretions within the right sphenoid sinus have diminished since exam of October 13, 2017. Mastoid air cells are clear. IMPRESSION: No acute intracranial findings. No change since previous exam. Electronically signed by: Lex Franco M.D. 11/26/2017 1:26 PM Dictated Date/Time: 11/26/2017 1:23 PM
--- NOTE | 2017-11-26 13:59 | DIAGNOSTIC IMAGING REPORT ---
SINGLE VIEW CHEST CLINICAL HISTORY: Change in mental status. FINDINGS: An AP, portable, upright chest radiograph is compared to study dated 10/13/2017 and correlated with chest CT dated 10/29/2014. The examination is degraded by portable technique and patient rotation. The heart is enlarged and there is atherosclerotic calcification of the thoracic aorta. There is chronic interstitial thickening, similar to previous. Left basilar atelectasis is observed. No airspace consolidation or large pleural effusion is identified. No pneumothorax is seen. The skeletal structures are osteopenic. Advanced degenerative change is seen in the shoulders and thoracic spine. IMPRESSION: Cardiomegaly with no acute cardiopulmonary abnormality. Electronically signed by: Bhavesh Shannon M.D. 11/26/2017 1:57 PM Dictated Date/Time: 11/26/2017 1:56 PM
[2017-11-26 14:22] LABS: BASO % 0.5 %; BASO ABS # 0.04 K/uL (0-0.2); EOS % 6.3 %; EOS ABS # 0.51 K/uL (0-0.5); HEMATOCRIT 36.6 % (37-47); HEMOGLOBIN 11.3 g/dL (12.0-16.0); IG# 0.01 K/uL (0.00-0.02); LYMPH % 15.7 %; LYMPH ABS # 1.26 K/uL (1.2-3.4); MEAN CELL VOLUME 90.6 fL (80-100); MEAN CORPUSCULAR HGB CONC 30.9 g/dl (32-36); MEAN PLATELET VOLUME 8.6 fL (7.4-10.4); MONO % 10.1 %; MONO ABS # 0.81 K/uL (0.11-0.59); NEUT % 67.3 %; NEUT ABS # 5.41 K/uL (1.4-6.5); PLATELET COUNT 345 K/uL (130-400); RED CELL DISTRIBUTION WIDTH CV 14.5 % (11.5-14.5); RED CELL DISTRIBUTION WIDTH SD 48.5 fL (36.4-46.3); WHITE BLOOD COUNT 8.04 K/uL (4.8-10.8)
[2017-11-26 14:54] LABS: ALBUMIN 2.7 gm/dl (3.4-5.0); ALKALINE PHOSPHATASE 97 U/L (45-117); ALT/SGPT 11 U/L (12-78); AST/SGOT 13 U/L (15-37); BLOOD UREA NITROGEN 14 mg/dl (7-18); CALCIUM 8.7 mg/dl (8.5-10.1); CARBON DIOXIDE 27 mmol/L (21-32); CREATININE 0.65 mg/dl (0.60-1.20); GLUCOSE 106 mg/dl (70-99); POTASSIUM 4.1 mmol/L (3.5-5.1); SODIUM 140 mmol/L (136-145)
[2017-11-26 15:07] VITALS: BP 118/86; PULSE 68; O2SAT 98
[2017-11-26] MEDS ORDERED: CEFTRIAXONE SOD INJ 1 GM ADDVIAL IV STA (15:22)
[2017-11-26] MEDS ORDERED: CIPROFLOXACIN 500 MG TAB PO STA (15:25)
[2017-11-26] MEDS ORDERED: CIPR1TAB11 PO (15:29)
== END 2017-11-26 15:45 | disposition home or self-care (01) ==
LOC: C.EDB 12:06 → C.EDA 15:45
DX: N39.0 Urinary tract infection, site not specified (principal); F03.90 Unspecified dementia, unspecified severity, without behavioral disturbance, psychotic disturbance, mood disturbance, and anxiety; I10 Essential (primary) hypertension; Z86.73 Personal history of transient ischemic attack (TIA), and cerebral infarction without residual deficits; Z79.82 Long term (current) use of aspirin; Z79.899 Other long term (current) drug therapy; Z79.1 Long term (current) use of non-steroidal anti-inflammatories (NSAID); Z79.02 Long term (current) use of antithrombotics/antiplatelets; Z88.8 Allergy status to other drugs, medicaments and biological substances

== ENCOUNTER 2019-02-07 13:40 | Inpatient (IN) ==
[2019-02-07] MEDS ORDERED: SODIUM CHLORIDE 0.9% 500 ML IV SCH (14:15)
--- NOTE | 2019-02-07 14:39 | XRay Report ---
XR chest 1V portable HISTORY: 88 years-old Female weakness acute weakness COMPARISON: Chest radiograph 02/04/2019 TECHNIQUE: Portable AP view of the chest FINDINGS: Cardiac silhouette is mildly enlarged, unchanged. Calcified plaque of the thoracic aorta. No pneumoth orax or overt pulmonary edema. There is mild blunting of the costophrenic angles with persistent subs egmental left basilar opacities suggestive of atelectasis or scarring. Mild chronic interstitial coar sening. Degenerative changes of the shoulders and spine. IMPRESSION: Chronic findings as above without acute process. The above report was generated using voice recognition software. It may contain grammatical, syntax o r spelling errors. Electronically signed by: [place] M.D. 02/07/2019 2:37 PM
--- NOTE | 2019-02-07 15:06 | CT Scan Report ---
CT head/brain wo con CLINICAL HISTORY: confusion COMPARISON STUDY: 02/04/2019 TECHNIQUE: Axial CT of the brain is performed from the vertex to the skull base. IV contrast was not administered for this examination. A dose lowering technique was utilized adhering to the principles of ALARA. CT DOSE: 537.48 mGy.cm FINDINGS: No intra or extra-axial mass lesions are visualized. There is no CT evidence of acute cortical infarc tion. There is no evidence of midline shift. There is no acute hemorrhage. No calvarial fractures ar e visualized. There are patchy white matter hypodensities likely on a small vessel basis. There is persistent ventricular dilatation unchanged from the preceding study. The dilatation is slig htly out of proportion to degree of atrophy and normal pressure hydrocephalus cannot be excluded There is no evidence of acute sinusitis IMPRESSION: 1. No acute intracranial findings 2. Persistent ventricular dilatation unchanged from the prior study. Electronically signed by: Keith Aldana M.D. 02/07/2019 3:05 PM
--- NOTE | 2019-02-07 15:34 | History & Physical Report ---
Date of Service February 07, 2019 Assessment & Plan (1) Metabolic encephalopathy: (2) Bilateral lower leg cellulitis: (3) UTI (urinary tract infection): This is a 88-year-old female who has a significant past medical history of CVA, vascular dementia, hypertension, rheumatoid arthritis, osteoarthritis, vitamin D deficiency, osteopenia who presents to [facility] ED from personal care facility secondary to worsening confusion and failed outpatient treatment for UTI and cellulitis. Pt presented to [facility] ED 02/04 secondary to sx of UTI. Prescribed Omnicef Pt returned to [facility] ED 02/05 in evening due to rash and worsening confusion. There was concern for possible allergic reaction to Omnicef or possibly mirtazapine which was administered prior to arrival. A thorough medication allergy assessment was performed by ED pharmacist on 02/06 which revealed patient had previously tolerated 10-day course of Omnicef which was prescribed on 01/15 for UTI and cellulitis. It was also noted that patient had first dose of mirtazapine evening of 02/05 prior to. It is felt that the allergic reaction was likely secondary to mirtazapine, but he concurred cyclosporine allergy was not ruled out secondary to patient having a known history to Keflex. She has tolerated multiple third-generation cephalosporins in the past. Omnicef was then switched to amoxicillin which she has had 2 doses. She returns today on 02/07 secondary to worsening confusion and getting in a fight with resident and staff. Patient urine culture grew greater than 100,000 enterococcus It is felt that she has failed outpatient treatment and is recommended for inpatient admission of IV antibiotics secondary to continued UTI and worsening lower extremity cellulitis She is afebrile and her W BC is 10.50. Her lactic acid is 1.6 She does not meet SIRS/sepsis criteria Admit to telemetry Initiate IV Vancomycin for dual coverage of UTI as well as lower extremity cellulitis Blood cultures are pending Hold and avoid any anticholinergic or mood altering medications given vascular dementia IVF 75 cc/h for additional liter Repeat CBC and BMP in a.m. Pt prescribed prednisone 20mg x 3 days for urticaria on 02/05 - will continue and taper off (4) Anemia: H/H decreased to 9.6 and 31.4 01/15 was 11.3 and 36.8 pt denies s/sx of bleeding check anemia panel with: Ferritin, iron, TIBC, T sat, vitamin B12, folate, FOBT monitor cbc (5) CVA (cerebral vascular accident): hx of CVA continue ASA, plavix, statin (6) HTN (hypertension): blood pressure stable continue amlodipine with parameters (7) Arthritis: APAP prn pt takes [place] 5/325 chronically, continue but monitor closely (8) Vascular dementia: mood stable CT head: unchanged, no acute abnormality, chronic ventricular prominence unable to rule out NPH consult neurology given abd CT (9) DVT prophylaxis: Lovenox SQ Disposition: to be determined; pt resides at [facility], case management consulted Follow up: PCP Dr. Hollingsworth upon discharge Patient was seen and examined in collaboration with Dr. Kenney, please see addendum History of Present Illness Chief Complaint: Failed outpatient therapy for UTI. Primary Care Provider: [facility], [facility] This is a 88-year-old female who has a significant past medical history of CVA, vascular dementia, hypertension, rheumatoid arthritis, osteoarthritis, vitamin D deficiency, osteopenia who presents to [facility] ED from [facility] secondary to worsening confusion and failed outpatient treatment for UTI and cellulitis. Patient was seen in [facility] ED on 02/04 secondary to increased confusion in which she was diagnosed with a UTI. She was placed on Omnicef. She presented back to [facility] ED on 02/05 secondary to worsening confusion and rash which was felt to be possibly secondary to Omnicef or mirtazapine (this was given [employer]). The Omnicef was switched to amoxicillin and she was placed on prednisone taper and discharged back to [facility]. Patient represents today due to having increasing confusion and being combative with staff and residents. Patient is able to answer questions appropriately but unsure reliability. Family friend/caregiver is at bedside. She elicits that her right and left lower extremity have been becoming increasingly red over the past 3 weeks. She was seen here in [facility] ED on 01/15 for a possible right lower extremity cellulitis and was treated with doxycycline and Omnicef. She overall feels her right leg has improved but now has significantly increasing warmth and redness to the left lower extremity. There is also noticed increased confusion. Upon questioning patient she denies feeling overall fevers chills or sweats but states, "my legs are feverish." She denies any recent falls, syncope, lightheadedness, dizziness, chest pain, shortness of breath, cough, nausea, vomiting, diarrhea, dysuria, increased urgency or frequency with urination, hematuria. She states overall her appetite has been okay. Of significant note it was noticed that patient's urine culture grew enterococcus which was not susceptible to Omnicef, but susceptible to amoxicillin. She has only had 2 doses of amoxicillin. Allergies Allergy/AdvReac Type Severity Reaction Status Date / Time cefdinir Allergy Intermediate See comment Verified 02/07/19 14:34 mirtazapine Allergy Intermediate See comment Verified 02/07/19 14:34 cephalexin [From Keflex] Allergy Unknown Unknown Verified 02/07/19 14:34 ciprofloxacin [From Cipro] Allergy Unknown Unknown Verified 02/07/19 14:34 diphenhydramine AdvReac Intermediate "increases Verified 02/07/19 14:34 dementia" Home Medications Home Medications Medication Instructions Recorded Confirmed Type aspirin [Aspirin Low Dose] 81 mg PO PM #0 06/17/16 02/07/19 History hydrocodone-acetaminophen 1 tab PO TID #0 02/16/17 02/07/19 History polyethylene glycol 3350 17 g PO 3XWK #0 10/13/17 02/07/19 History acetaminophen [Tylenol Extra 500 mg PO Q6H PRN #0 tab 01/15/18 02/07/19 History Strength] amlodipine 5 mg PO QAM #0 01/15/18 02/07/19 History clopidogrel 75 mg PO QAM #0 01/15/18 02/07/19 History diclofenac sodium 2 g TOPICAL BID #0 01/15/18 02/07/19 History folic acid 1 mg PO QAM #0 01/15/18 02/07/19 History oxybutynin chloride 10 mg PO QAM #0 01/15/18 02/07/19 History ondansetron 8 mg PO Q8H PRN #0 tab 01/29/18 02/07/19 History menthol-zinc oxide [Calmoseptine] 1 applic TOPICAL BID PRN 01/15/19 02/07/19 History atorvastatin 40 mg PO PM 02/04/19 02/07/19 History calcium carbonate [Antacid 300 mg PO DIRECTED PRN 02/04/19 02/07/19 History Extra-Strength] lorazepam 0.5 mg PO DAILY PRN 02/04/19 02/07/19 History mirtazapine 15 mg PO HS 02/05/19 02/07/19 History amoxicillin 500 mg PO BID 10 Days #20 cap 02/06/19 02/07/19 Rx prednisone 20 mg PO QAM 02/07/19 02/07/19 History Past Med/Surg History Medical History Vitamin D deficiency (Chronic) Osteopenia (Chronic) Vascular dementia (Chronic) Arthritis (Chronic) Pernicious anemia (Chronic) Rheumatoid arthritis (Chronic) HTN (hypertension) (Chronic) CVA (cerebral vascular accident) (Chronic) UTI (urinary tract infection) (Acute) Surgical History History of tonsillectomy (Resolved) History of total left hip arthroplasty (Resolved) Family History Father Old age, Onset Age: 90 denies pmh Mother Old age, Onset Age: 90 denies PMH Social History Preferred Language: French Communication Ability: Effective Visual Impairment: No Limitations Hearing Ability: Normal Prosthodontist/Educator Required: No Beliefs That Will Affect Care: None Current Living Situation: Personal Care Facility Current Living Situation Comment: [facility] current occupational status: retired 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 Physical Exam Physical Exam: Gen: WD/WN, elderly, female, sitting up in bed, pleasantly confused, answers questions appropriately, NAD, conversing easily Head: Normocephalic, Atraumatic Eyes: Sclera normal, no conjunctival injection, PERRLA, EOMI ENT: Gross hearing intact, normal pharynx, mucous membranes moist Neck: supple, no adenopathy, No JVD, no bruit, Resp: Clear to auscultation b/l, no wheeze, rales, rhonchi. Normal insp/exp effort, no accessory muscle use CV: Regular rate, regular rhythm, soft 1/6 murmur noted best at cardiac apex, no rub, gallop, or ectopy Abd: +BS x 4, soft, nontender, nondistended Musculoskeletal: moves extremities active rom x 4, strength intact, good roustabout crew strength Extremities: Bilateral venous stasis changes with evidence of left lower extremity and right lower extreme a cellulitis left > right, extending approximately to knee, warmth, redness, well-demarcated. Bilateral pedal pulses +1 equal, bilateral PT pulses +1 and equal, bilateral popliteal pulses +1 and equal, trace edema bilaterally left greater than right, no palpable cord Skin: warm, dry, no rash, negative turgor, cap refill < 2sec Neuro: Alert and oriented to self, able to converse easily but confused, speech normal, good mood/affect, cran nerve 2-12 intact grossly : deferred Results & Data Vital Signs (Past 12 Hours) Vital Signs Temp Pulse Pulse Resp BP BP Pulse Ox 02/07/19 14:54 77 21 127/64 02/07/19 13:47 36.8 C 73 20 140/64 94 Laboratory Results Short CBC 02/07/19 Range/Units 15:16 WBC 10.50 (4.8-10.8) K/uL Hgb 9.6 L (12.0-16.0) g/dL Hct 31.4 L (37-47) % Plt Count 333 (130-400) K/uL BMP 02/07/19 15:16 Sodium 145 Potassium 3.9 Chloride 110 H Carbon Dioxide 27 BUN 22 H Creatinine 0.85 Glucose 173 H Calcium 8.3 L Cardiac Enzymes 02/07/19 Range/Units 15:16 Troponin I < 0.015 (0-0.045) ng/ml Liver Function 02/07/19 Range/Units 15:16 Total Bilirubin 0.3 (0.2-1) mg/dl AST 18 (15-37) U/L ALT 16 (12-78) U/L Alkaline Phosphatase 71 (45-117) U/L Albumin 2.2 L (3.4-5.0) gm/dl Diagnostic Findings Head CT: IMPRESSION: 1. No acute intracranial findings 2. Persistent ventricular dilatation unchanged from the prior study. CXR: FINDINGS: Cardiac silhouette is mildly enlarged, unchanged. Calcified plaque of the thoracic aorta. No pneumothorax or overt pulmonary edema. There is mild blunting of the costophrenic angles with persistent subsegmental left basilar opacities suggestive of atelectasis or scarring. Mild chronic interstitial coarsening. Degenerative changes of the shoulders and spine. IMPRESSION: Chronic findings as above without acute process. Medications Administered Discontinued Medications Sodium Chloride (Nss) 500 mls @ 999 mls/hr IV .Q31M PAOLA Stop: 02/07/19 14:45 Last Infusion: 02/07/19 15:09 Dose: 0 mls/hr Documented by: [id number] Admin: 02/07/19 14:32 Dose: 999 mls/hr Documented by: [id number] ECG Rate (beats per minute): 74 Rhythm: normal sinus Code Status & VTE Plan Code Status Full Code Pt confused therefore not able to fully assess, will need to discuss with POA VTE Prophylaxis Plan VTE Prophylaxis will be ordered: Yes Supervising Physician Co-Signing Physician Notes I have seen and examined the patient and have discussed the case with the provider above. I agree with the assessment and plan as stated with the following exceptions. Ms. Forman is an elderly female with progressed dementia who is easily agitated and can become violent. She comes in from [facility] with worsening nonpurulent cellulitis of bilateral lower extremities worse on the left lower extremity. There is no open wound present. The patient does report a known sacral ulcer which I was unable to evaluate as she was eating her dinner. Exam revealed S1, S2 heard on auscultation with out evidence of murmur, gallop, rub. There is no edema present and the patient is euvolemic. Lungs are clear to auscultation and there are no is no respiratory distress. Abdomen is soft nontender and nondistended. She appears oriented and at her baseline mental status. Agree with plan to change antibiotics to vancomycin to include coverage for E faecalis UTI as well as the cellulitis. She is afebrile and is not septic. She is high risk for delirium and agitation. Caregiver was updated with the plan and in turn will update the family. DO. [place] (1) UTI (urinary tract infection) Urinary tract infection type: site unspecified
[2019-02-07 15:43] LABS: Eosinophils # (auto) 0.02 K/uL (0-0.5); Eosinophils % (auto) 0.2 %; Hematocrit (blood only) 31.4 % (37-47); Hemoglobin 9.6 g/dL (12.0-16.0); Immature Granulocytes # (auto) 0.02 K/uL (0.00-0.02); Immature Granulocytes % (auto) 0.2 %; Lymphocytes # (auto) 0.46 K/uL (1.2-3.4); Lymphocytes % (auto) 4.4 %; Mean Corpuscular Hgb Conc 30.6 g/dL (32-36); Mean Corpuscular Volume 89.2 fL (80-100); Mean Platelet Volume 9.2 fL (7.4-10.4); Monocytes # (auto) 0.35 K/uL (0.11-0.59); Monocytes % (auto) 3.3 %; Neutrophils # (auto) 9.65 K/uL (1.4-6.5); Neutrophils % (auto) 91.9 %; Platelet Count 333 K/uL (130-400); RDW Coefficient of Variation 16.3 % (11.5-14.5); RDW Standard Deviation 52.9 fL (36.4-46.3); Red Blood Count 3.52 M/uL (4.2-5.4)
[2019-02-07 16:22] LABS: Alanine Aminotransferase 16 U/L (12-78); Albumin Globulin Ratio 0.6 (0.9-2); Albumin Level 2.2 gm/dl (3.4-5.0); Alkaline Phosphatase 71 U/L (45-117); BUN Creatinine Ratio 25.6 (10-20); Bilirubin,Total 0.3 mg/dl (0.2-1); Blood Urea Nitrogen 22 mg/dl (7-18); Calcium 8.3 mg/dl (8.5-10.1); Carbon Dioxide 27 mmol/L (21-32); Chloride 110 mmol/L (98-107); Creatinine Clr Calc Pharmacy 42.4 ml/min; Est GFR (African American) 70.4; Est GFR (Non-African American) 60.7; Glucose 173 mg/dl (70-99); Total Protein 6.2 gm/dl (6.4-8.2); Troponin I < 0.015 ng/ml (0-0.045)
[2019-02-07 16:31] LABS: Potassium 3.9 mmol/L (3.5-5.1); Sodium 145 mmol/L (136-145)
[2019-02-07] MEDS ORDERED: VANCOMYCIN CONSULT ACTIVE PRN (16:35)
[2019-02-07] MEDS ORDERED: ACETAMINOPHEN 325 MG TAB PO PRN (16:35)
[2019-02-07] MEDS ORDERED: SODIUM CHLORIDE 0.9% 1000ML 1,000 ML IV SCH (16:35)
[2019-02-07] MEDS ORDERED: ONDANSETRON INJ 2 MG/ML 2 ML VIAL IV PRN (16:35)
[2019-02-07] MEDS ORDERED: LORazepam 0.5 MG TAB PO PRN (16:35)
[2019-02-07] MEDS ORDERED: MAGNESIUM HYDROXIDE SUSP 30 ML UDC PO PRN (16:35)
[2019-02-07] MEDS ORDERED: ALUMINUM/MAGNESIUM SUSP 30 ML UDC PO PRN (16:35)
[2019-02-07] MEDS ORDERED: POLYETHYLENE (MIRALAX) 17 GM PACK PO PRN (16:35)
[2019-02-07 16:39] LABS: Aspartate Aminotransferase 18 U/L (15-37); Magnesium 2.3 mg/dl (1.8-2.4)
[2019-02-07] MEDS ORDERED: VANCOMYCIN HCL 1,500 MG in SODIUM CHLORIDE 0.9% 500 ML IV ONE (17:15)
--- NOTE | 2019-02-07 17:25 | Pharmacy Report ---
Pharmacy Abx Initial Consult - Date of Service February 07, 2019 - Pharmacy Dosing Scope Date of Consult: 02/07/19 Consultation requested by: Kiara Pérez PA-C Pharmacy is consulted to initiate Vancomycin IV dosing therapy, order appropriate labs and adjust drug dose/frequency. - Subjective The patient is a 88 year old F admitted on 02/07/19 15:20. - Objective Height: 5 ft 4 in Weight: 67.5 kg Vital Signs (Past 12hrs): Vital Signs Temp Pulse Pulse Resp BP BP Pulse Ox 02/07/19 17:11 75 02/07/19 16:51 36.9 C 67 18 130/64 96 02/07/19 15:49 64 16 112/64 94 02/07/19 14:54 77 21 127/64 02/07/19 13:47 36.8 C 73 20 140/64 94 Lab Results (24hrs): Laboratory Tests (24 Hours) 02/07/19 02/07/19 15:16 15:16 WBC 10.50 Neut # (Auto) 9.65 H Creatinine 0.85 Est Cr Clr Drug Dosing 42.4 Micro Results: 02/07/19 15:16 Aerobic Blood Culture - Pending Blood Anaerobic Blood Culture - Pending 02/07/19 14:00 Aerobic Blood Culture - Pending Blood Anaerobic Blood Culture - Pending - Risk Factors for Resistance * Resident in a penitentiary or extended-care facility * Hospitalization for 48 hours or more within the past 90 days - patient has been in the ED 3 times in the last 30 days. Two visits were consecutive days. * Antimicrobial use within the last 90 days - Omnicef, Amoxicillin, Doxycycline - Assessment & Plan Assessment 88 year old F with history of CVA, RA, HTN presents to the ED from a personal care facility with worsening mental status x 2 days. Paraphrased from Provider admission note: Pt presented to [facility] ED 02/04 secondary to sx of UTI. Prescribed Omnicef Pt returned to [facility] ED 02/05 in evening due to rash and worsening confusion. There was concern for allergic reaction to Omnicef or mirtazapine which was administered prior to arrival. A thorough medication allergy assessment was performed by ED pharmacist on 02/06 which revealed patient had previously tolerated 10-day course of Omnicef (prescribed on 01/15 for UTI and cellulitis). It was also noted that patient had first dose of mirtazapine evening of 02/05 prior to. Allergic reaction likely secondary to mirtazipine, but ED RPh could not rule out omnicef, due to previous reaction to Keflex.. She has tolerated multiple third-generation cephalosporins in the past. Omnicef was then switched to amoxicillin which she has had 2 doses. Patient is afebrile, WBC 10.5, lactate 1.6 UA positive from 02/04 Urine culture from 02/04 growing e. faecalis, vancomycin VIPUL = 2. SCr 0.85, baseline appears to be ~0.6-0.7 Plan Vancomycin for treatment of bilateral lower extremity cellulitis and enterococcus UTI Vancomycin IV * Estimated PK Parameters: Vd 0.7 L/kg, Paul 0.039 hr-1, t1/2 17.5 hr * Loading dose: 1500 mg (22.2 mg/kg) * Maintenance dose: 1000 mg IV (14.8 mg/kg) every 22 hours * Goal trough level : 10 to 15 mcg/mL * Trough will be ordered with third maintenance dose, this should be reflective of css. Will check earlier if patient declines clinically. Pharmacy will continue to follow and will adjust dose/frequency as necessary. Thank you.
--- NOTE | 2019-02-07 18:12 | Emergency Department Note ---
Entered by Ricardo Tucker acting as a scribe for Bhavesh Espinoza MD History of Present Illness General Chief complaint: Confusion Time Seen by Provider: 02/07/19 13:59 Source: patient Limitations: no limitations History of Present Illness Provider complaint: Rash Onset (ago): day(s) (today) Location: lower extremity, left and right Relieved By: + none Exacerbated By: + none Associated symptoms: + rash; no fever/chills Treatments prior to arrival: other (amoxicillin, prednisone) The patient is an 88 year old female who presents to the Emergency Department with complaints of a rash due to amoxicillin. She also has been increasingly confused. The patient has a bladder infection and she was on an antibiotic that caused her to get hives, 2 nights ago she came to the Emergency Department and was prescribed amoxicillin in place of the omnicef. She was also placed on prednisone. The patient is returning to the Emergency Department due to a rash on her legs and increasing confusion. The patient denies having a fever, chills, falls, or trauma. Per the patients friend, the patient has poor circulation in her legs which causes a little bit of swelling. Home Medications Home Medications Medication Instructions Recorded Confirmed Type aspirin [Aspirin Low Dose] 81 mg PO PM #0 06/17/16 02/07/19 History hydrocodone-acetaminophen 1 tab PO TID #0 02/16/17 02/07/19 History polyethylene glycol 3350 17 g PO 3XWK #0 10/13/17 02/07/19 History acetaminophen [Tylenol Extra 500 mg PO Q6H PRN #0 tab 01/15/18 02/07/19 History Strength] amlodipine 5 mg PO QAM #0 01/15/18 02/07/19 History clopidogrel 75 mg PO QAM #0 01/15/18 02/07/19 History diclofenac sodium 2 g TOPICAL BID #0 01/15/18 02/07/19 History folic acid 1 mg PO QAM #0 01/15/18 02/07/19 History oxybutynin chloride 10 mg PO QAM #0 01/15/18 02/07/19 History ondansetron 8 mg PO Q8H PRN #0 tab 01/29/18 02/07/19 History menthol-zinc oxide [Calmoseptine] 1 applic TOPICAL BID PRN 01/15/19 02/07/19 History atorvastatin 40 mg PO PM 02/04/19 02/07/19 History calcium carbonate [Antacid 300 mg PO DIRECTED PRN 02/04/19 02/07/19 History Extra-Strength] lorazepam 0.5 mg PO DAILY PRN 02/04/19 02/07/19 History mirtazapine 15 mg PO HS 02/05/19 02/07/19 History amoxicillin 500 mg PO BID 10 Days #20 cap 02/06/19 02/07/19 Rx prednisone 20 mg PO QAM 02/07/19 02/07/19 History Allergies Allergy/AdvReac Type Severity Reaction Status Date / Time cefdinir Allergy Intermediate See comment Verified 02/07/19 14:34 mirtazapine Allergy Intermediate See comment Verified 02/07/19 14:34 cephalexin [From Keflex] Allergy Unknown Unknown Verified 02/07/19 14:34 ciprofloxacin [From Cipro] Allergy Unknown Unknown Verified 02/07/19 14:34 diphenhydramine AdvReac Intermediate "increases Verified 02/07/19 14:34 dementia" Past Med/Surg History Medical History Vitamin D deficiency (Chronic) Osteopenia (Chronic) Vascular dementia (Chronic) Arthritis (Chronic) Pernicious anemia (Chronic) Rheumatoid arthritis (Chronic) HTN (hypertension) (Chronic) CVA (cerebral vascular accident) (Chronic) UTI (urinary tract infection) (Acute) Surgical History History of tonsillectomy (Resolved) History of total left hip arthroplasty (Resolved) Family History Father Old age, Onset Age: 90 denies pmh Mother Old age, Onset Age: 90 denies PMH Social History Preferred Language: Macedonian Communication Ability: Effective Visual Impairment: No Limitations Hearing Ability: Normal Wrap Checker Required: No Beliefs That Will Affect Care: None Current Living Situation: Personal Care Facility Current Living Situation Comment: [facility] current occupational status: retired current occupation: [employer] Other Information That Helps Us Care for You: No Feels Safe at Home: Yes Safety Concerns: Feels Safe At This Time Smoking Status: Never smoker Hx Alcohol Use: No Hx Substance Use: No Review of Systems See HPI for pertinent positives & negatives. and A total of 10 systems reviewed and were otherwise negative Physical Exam Vital Signs Vital Signs - 24 hr 02/07/19 13:47 02/07/19 14:54 Temperature 36.8 C Temperature Source Oral Sepsis Recent Fever Within 48 Hours No Sepsis New/Unexplained Change in Mental Status No Sepsis Action Taken by Nursing No Action Required Pulse Rate 73 Pulse Rate [Left] 77 Respiratory Rate 20 21 Respiratory Effort / Characteristics Non-Labored Spontaneous Non-Labored Spontaneous Respiratory Depth Normal Normal Blood Pressure 140/64 Blood Pressure [Left Arm] 127/64 Blood Pressure Mean 89 Blood Pressure Mean [Left Arm] 85 Blood Pressure Position Lying Blood Pressure Position [Left Arm] Lying Pulse Oximetry 94 Oxygen Delivery Method Room Air Room Air GENERAL: Patient is in no acute distress. HEENT: No acute trauma, normocephalic atraumatic, mucous membranes moist, no nasal congestion, no scleral icterus. NECK: No stridor, no adenopathy, no meningismus, trachea is midline. LUNGS: Clear to auscultation bilaterally, no wheeze, no rhonchi, breath sounds equal. HEART: Without gallops or rubs, 2/6 systolic murmur, regular rate and rhythm. ABDOMEN: Soft, nontender, bowel sounds positive, no hernias, no peritonitis. EXTREMITIES: No pedal edema, erythema to both lower extremities but it is worse on the left. No drainage, subtle warmth to the left lower extremity. NEUROLOGIC: Subtle confusion but answers simple questions well, awake and alert, no focal motor deficits. SKIN: No rash, no jaundice, no diaphoresis. Course 1409: Past medical records reviewed. The patient was evaluated in room . A complete history and physical examination was performed. 1431: I spoke with Kiara Pérez, [facility] Hospitalist, about the patients case who agreed to accept the patient for further evaluation. 1450: The patient was admitted. Administered Medications Sodium Chloride (Nss 1000ml) 1,000 mls @ 75 mls/hr IV .[id number] PAOLA Stop: 02/08/19 05:54 Last Admin: 02/07/19 16:51 Dose: 75 mls/hr Documented by: [id number] Vancomycin HCl 1,500 mg/ (Sodium Chloride) 530 mls @ 200 mls/hr IV NOW ONE Stop: 02/07/19 19:53 Last Admin: 02/07/19 17:35 Dose: 200 mls/hr Documented by: [id number] Discontinued Medications Sodium Chloride (Nss) 500 mls @ 999 mls/hr IV .Q31M PAOLA Stop: 02/07/19 14:45 Last Infusion: 02/07/19 15:09 Dose: 0 mls/hr Documented by: [id number] Admin: 02/07/19 14:32 Dose: 999 mls/hr Documented by: [id number] Medical Decision Making Differential Diagnosis Differential Diagnosis: dehydration, allergic reaction, sepsis, UTI, cellulitis, intracranial bleed or stroke, renal or liver failure Medical Records Attestation: I reviewed the patient's medical records. Home Medications Current Medication List: was personally reviewed by me Laboratory Data Attestation: I reviewed the patient's lab results. Result diagrams: 02/07/19 15:16 02/07/19 15:16 Lab Results 02/07/19 02/07/19 02/07/19 Range/Units 15:16 15:16 15:16 WBC 10.50 (4.8-10.8) K/uL RBC 3.52 L (4.2-5.4) M/uL Hgb 9.6 L (12.0-16.0) g/dL Hct 31.4 L (37-47) % MCV 89.2 (80-100) fL MCH 27.3 (25-34) pg MCHC 30.6 L (32-36) g/dL RDW Std Deviation 52.9 H (36.4-46.3) fL RDW Coeff of Sarahi 16.3 H (11.5-14.5) % Plt Count 333 (130-400) K/uL MPV 9.2 (7.4-10.4) fL Immature Gran % (Auto) 0.2 % Neut % (Auto) 91.9 % Lymph % (Auto) 4.4 % [place] % (Auto) 3.3 % Eos % (Auto) 0.2 % Baso % (Auto) 0.0 % Immature Gran # (Auto) 0.02 (0.00-0.02) K/uL Neut # (Auto) 9.65 H (1.4-6.5) K/uL Lymph # (Auto) 0.46 L (1.2-3.4) K/uL [place] # (Auto) 0.35 (0.11-0.59) K/uL Eos # (Auto) 0.02 (0-0.5) K/uL Baso # (Auto) 0.00 (0-0.2) K/uL Sodium 145 (136-145) mmol/L Potassium 3.9 (3.5-5.1) mmol/L Chloride 110 H (98-107) mmol/L Carbon Dioxide 27 (21-32) mmol/L Anion Gap 8.0 (3-11) BUN 22 H (7-18) mg/dl Creatinine 0.85 (0.6-1.2) mg/dl Est Cr Clr Drug Dosing 42.4 ml/min Est GFR ( Amer) 70.4 Est GFR (Non-Af Amer) 60.7 BUN/Creatinine Ratio 25.6 H (10-20) Glucose 173 H (70-99) mg/dl Lactate 1.6 (0.4-2.0) mmol/L Calcium 8.3 L (8.5-10.1) mg/dl Magnesium 2.3 (1.8-2.4) mg/dl Total Bilirubin 0.3 (0.2-1) mg/dl AST 18 (15-37) U/L ALT 16 (12-78) U/L Alkaline Phosphatase 71 (45-117) U/L Troponin I < 0.015 (0-0.045) ng/ml Total Protein 6.2 L (6.4-8.2) gm/dl Albumin 2.2 L (3.4-5.0) gm/dl Globulin 4.0 (2.5-4.0) gm/dl Albumin/Globulin Ratio 0.6 L (0.9-2) TSH 0.598 (0.300-4.500) uIu/ml Imaging Data Attestation: I personally reviewed and interpreted this imaging study as follows: Radiologist's Impression: Radiology results as stated below per my review and ra diologist interpretation: CT head/brain wo con CLINICAL HISTORY: confusion COMPARISON STUDY: 02/04/2019 TECHNIQUE: Axial CT of the brain is performed from the vertex to the skull base. IV contrast was not administered for this examination. A dose lowering technique was utilized adhering to the principles of ALARA. CT DOSE: 537.48 mGy.cm FINDINGS: No intra or extra-axial mass lesions are visualized. There is no CT evidence of acute cortical infarction. There is no evidence of midline shift. There is no acute hemorrhage. No calvarial fractures are visualized. There are patchy white matter hypodensities likely on a small vessel basis. There is persistent ventricular dilatation unchanged from the preceding study. The dilatation is slightly out of proportion to degree of atrophy and normal pressure hydrocephalus cannot be excluded There is no evidence of acute sinusitis IMPRESSION: 1. No acute intracranial findings 2. Persistent ventricular dilatation unchanged from the prior study. Electronically signed by: Keith Aldana M.D. 02/07/2019 3:05 PM XR chest 1V portable HISTORY: 88 years-old Female weakness acute weakness COMPARISON: Chest radiograph 02/04/2019 TECHNIQUE: Portable AP view of the chest FINDINGS: Cardiac silhouette is mildly enlarged, unchanged. Calcified plaque of the thoracic aorta. No pneumothorax or overt pulmonary edema. There is mild blunting of the costophrenic angles with persistent subsegmental left basilar opacities suggestive of atelectasis or scarring. Mild chronic interstitial coarsening. Degenerative changes of the shoulders and spine. IMPRESSION: Chronic findings as above without acute process. The above report was generated using voice recognition software. It may contain grammatical, syntax or spelling errors. Electronically signed by: [place] M.D. 02/07/2019 2:37 PM ECG Data Attestation: I personally reviewed and interpreted this ECG as follows: Rate (beats per minute): 74 Rhythm: normal sinus Findings: + nonspecific-ST abn; no PVC Blood Pressure Blood Pressure Findings: Normal blood pressure MDM Narrative There is no leukocytosis. The patient is anemic, this is a slight drop for her. The last value was around 10. No significant electrolyte abnormality or kidney failure. Lactic acid level is not elevated making sepsis less likely. No worrisome liver enzyme elevation. EKG shows a sinus rhythm, no acute ischemia. Cardiac enzyme testing x1 is not consistent with acute cardiac injury. The patient appeared to be in a euthyroid state. Chest x-ray did not show pneumonia or CHF. Brain CT showed no acute bleed or mass-effect. On exam, the patient was somewhat confused, no focal motor deficits, no fever. Urine culture from a few days ago did grow out enterococcus. The patient presents with worsening confusion. She has a UTI and just recently started antibiotic's that would be appropriate. The Omnicef which she had been on would not have been effective. She also has increasing redness of her left lower extremity and there is concern for the start of cellulitis. The patient is failing outpatient treatment. She is becoming more confused despite antibiotics. She now has increasing redness of her left leg which could indicate the start of a cellulitis. I do think a hospital stay is warranted. I spoke to the patient and rn case manager. The on-call hospitalist was consulted. During the patient's ED stay, she was given IV saline for hydration. Impression & Plan Confusion, UTI (urinary tract infection), Failure of outpatient treatment Discharge Plan Visit Data *Final* Discharge Date/Time: 02/07/19 15:49 Chief Complaint: Confusion ED Provider: Bhavesh Espinoza Discharge Problem: Confusion, UTI (urinary tract infection), Failure of outpatient treatment Patient Disposition: Admitted As Inpatient Discharge Instructions Interventions: ED Discharge Assessment Last Done: 02/07/19 15:49 Discharge Problem: UTI (urinary tract infection) Qualifiers: Urinary tract infection type: site unspecified The scribe's documentation has been prepared under my direction and personally reviewed by me in its entirety. I confirm that the note above accurately reflects all work, treatment, procedures, and medical decision making performed by me.
--- NOTE | 2019-02-07 18:28 | Communication Note ---
Date of Service: February 07, 2019 I have just received this consult regarding normal pressure hydrocephalus and have reviewed the outpatient records and the current issues with increased co nfjimmy ellison due to a mixed delerium She is well inow to Sultana FERNANDEZ who has seen her most recently and there are extensive notes in our system that document her dementia and imaging studies showing ventriculomegaly. I have also reviewed the durrent images of the brain and reports of imaging studies done over the past few years which describe a chronic ventricular dilatation pattern and a history that indicates a chronc at least ten year progressive cognitive impairment syndrome attributed to a mixed and likely predominantly vascular dementia with gait issues developing late in the progression of the illness and clearly preceded buy cognitiive issues rather than the inverse pattern that would, if peresent , be more in keeping with NPH. The ct may be radiographically suggestive of potential NPH vut the clinical history is not and I see no reason to pursue this further I will be in tomorrow for a more complete consultation but for now have no suggestions other than to manage the delerium taper off the steroids and treat the infectious processes and hope for a gradual clearling of her mentation which may require some time even once the precipitating toxic/metabolic issues are "resolved " laboratory cain. Aleksey Diop MD
[2019-02-07] MEDS ORDERED: ATORVASTATIN 40 MG TAB PO SCH (21:00)
[2019-02-07] MEDS: ASPIRIN 81 MG ECTAB PO SCH (21:28)
[2019-02-07] MEDS: HYDROCODONE/ACETAMOPHEN 5/325MG TAB PO SCH (21:29)
[2019-02-08 07:05] LABS: Hematocrit (blood only) 31.2 % (37-47); Hemoglobin 9.3 g/dL (12.0-16.0); Mean Corpuscular Hgb Conc 29.8 g/dL (32-36); Mean Corpuscular Volume 91.2 fL (80-100); Mean Platelet Volume 8.7 fL (7.4-10.4); Platelet Count 299 K/uL (130-400); RDW Standard Deviation 53.5 fL (36.4-46.3); Red Blood Count 3.42 M/uL (4.2-5.4)
[2019-02-08 07:35] LABS: Calcium 8.3 mg/dl (8.5-10.1); Creatinine Clr Calc Pharmacy 56.3 ml/min; Est GFR (African American) 91.7; Est GFR (Non-African American) 79.1; Potassium 3.6 mmol/L (3.5-5.1)
[2019-02-08 07:40] LABS: Ferritin 229.1 ng/ml (8-388)
[2019-02-08] MEDS ORDERED: DAPTOMYCIN CONSULT ACTIVE PRN (07:55)
[2019-02-08 08:24] LABS: Estimated Average Glucose 131 mg/dl; Hemoglobin A1C 6.2 % (4.5-5.6)
[2019-02-08 08:31] LABS: Folate (Folic Acid) 11.36 ng/ml (>5.38)
[2019-02-08] MEDS: HYDROCODONE/ACETAMOPHEN 5/325MG TAB PO SCH ×3 (08:41→17:43)
[2019-02-08] MEDS: AMLODIPINE BESYLATE 5 MG TAB PO SCH ×2 (08:53→10:30)
[2019-02-08] MEDS: DAPTOmycin 325 MG in SYRINGE 0 ML IV SCH (08:53)
[2019-02-08] MEDS: predniSONE 10 MG TABLET PO SCH ×2 (08:53→10:30)
[2019-02-08] MEDS: CLOPIDOGREL BISULFATE 75 MG TAB PO SCH ×2 (08:53→10:30)
[2019-02-08] MEDS: ENOXAPARIN INJ 30 MG/0.3 ML SYR SQ SCH (08:53)
[2019-02-08] MEDS: FOLIC ACID 1 MG TAB PO SCH ×2 (08:53→10:30)
--- NOTE | 2019-02-08 13:22 | Hospitalist Progress Note ---
Date of Service February 08, 2019 Assessment & Plan (1) Metabolic encephalopathy: (2) Bilateral lower leg cellulitis: (3) UTI (urinary tract infection): no agitation noted today, patient is irritable Urine culture 02/04: Enterococcus faecalis Blood cultures: pending change Vanco to Daptomycin to prevent kidney injury monitor mental status monitor leg erythema (4) Anemia: H/H decreased to 9.6 and 31.4 7/10 was 11.3 and 36.8 pt denies s/sx of bleeding Hg 9.3 iron 65 no signs of bleeding (5) CVA (cerebral vascular accident): hx of CVA continue ASA, plavix, statin (6) HTN (hypertension): blood pressure stable continue amlodipine with parameters (7) Arthritis: APAP prn pt takes [place] 5/325 chronically, continue but monitor closely (8) Vascular dementia: mood stable CT head: unchanged, no acute abnormality, chronic ventricular prominence unable to rule out NPH consult neurology given abd CT (9) DVT prophylaxis: Lovenox SQ Disposition: to be determined; pt resides at [facility], case management consulted Follow up: PCP Dr. Hollingsworth upon discharge Subjective ff up for UTI, Cellulitis, increased agitation seen resting in bedside chair RN Maxine at bedside throughout whole encounter not oriented, somewhat irritable but not agitated, cooperative mostly has tangential thoughts, states she is in an airplane, paranoid as per director of medical staff services states she has pain all over- but no signs of distress, discomfort denies chest pain, dyspnea, palpitations, dizziness no other symptoms Review of Systems Review of Systems: All systems reviewed & are unremarkable except as noted in HPI & below Physical Exam Physical Exam: General- oriented x 0, not in distress, speaks in sentences with no effort or accessory muscle use Eyes- anicteric Neck- no JVD Lungs- clear breath sounds bilaterally, no rales/wheezes Heart- normal rate, regular rhythm; no murmurs Abdomen- normal bowel sounds, nondistended, soft, nontender Extremities- (+) moderate erythema but no edema/warmth/tenderness on BL lower extremity Neuro- alert, oriented x 0; no gross focal neurologic deficits Skin- warm & dry Pysch- irritable, has tangental thoughts Results & Data Vital Signs (Past 12 Hours) Vital Signs Temp Pulse Resp BP Pulse Ox 02/08/19 07:00 36.6 C 63 20 156/68 H 97 Laboratory Results Laboratory Results - last 24 hr 02/07/19 02/07/19 02/07/19 15:16 15:16 15:16 WBC 10.50 RBC 3.52 L Hgb 9.6 L Hct 31.4 L MCV 89.2 MCH 27.3 MCHC 30.6 L RDW Std Deviation 52.9 H RDW Coeff of Sarahi 16.3 H Plt Count 333 MPV 9.2 Immature Gran % (Auto) 0.2 Neut % (Auto) 91.9 Lymph % (Auto) 4.4 [place] % (Auto) 3.3 Eos % (Auto) 0.2 Baso % (Auto) 0.0 Immature Gran # (Auto) 0.02 Neut # (Auto) 9.65 H Lymph # (Auto) 0.46 L [place] # (Auto) 0.35 Eos # (Auto) 0.02 Baso # (Auto) 0.00 Sodium 145 Potassium 3.9 Chloride 110 H Carbon Dioxide 27 Anion Gap 8.0 BUN 22 H Creatinine 0.85 Est Cr Clr Drug Dosing 42.4 Est GFR ( Amer) 70.4 Est GFR (Non-Af Amer) 60.7 BUN/Creatinine Ratio 25.6 H Glucose 173 H Estimat Average Glucose Hemoglobin A1c Lactate 1.6 Calcium 8.3 L Magnesium 2.3 Iron TIBC Transferrin Ferritin Total Bilirubin 0.3 AST 18 ALT 16 Alkaline Phosphatase 71 Troponin I < 0.015 Total Protein 6.2 L Albumin 2.2 L Globulin 4.0 Albumin/Globulin Ratio 0.6 L Vitamin B12 Folate TSH 0.598 Stool Occult Bld Scrn Stool Occult Blood Stool Occult Blood #2 Stool Occult Blood #3 02/08/19 02/08/19 02/08/19 06:49 06:49 06:49 WBC 6.80 RBC 3.42 L Hgb 9.3 L Hct 31.2 L MCV 91.2 MCH 27.2 MCHC 29.8 L RDW Std Deviation 53.5 H RDW Coeff of Sarahi 16.0 H Plt Count 299 MPV 8.7 Immature Gran % (Auto) Neut % (Auto) Lymph % (Auto) [place] % (Auto) Eos % (Auto) Baso % (Auto) Immature Gran # (Auto) Neut # (Auto) Lymph # (Auto) [place] # (Auto) Eos # (Auto) Baso # (Auto) Sodium 143 Potassium 3.6 Chloride 112 H Carbon Dioxide 28 Anion Gap 3.0 BUN 17 Creatinine 0.64 Est Cr Clr Drug Dosing 56.3 Est GFR ( Amer) 91.7 Est GFR (Non-Af Amer) 79.1 BUN/Creatinine Ratio 27.0 H Glucose 97 Estimat Average Glucose 131 Hemoglobin A1c 6.2 H Lactate Calcium 8.3 L Magnesium Iron 65 TIBC 150 L Transferrin 131 L Ferritin 229.1 Total Bilirubin AST ALT Alkaline Phosphatase Troponin I Total Protein Albumin Globulin Albumin/Globulin Ratio Vitamin B12 Folate TSH Stool Occult Bld Scrn Stool Occult Blood Stool Occult Blood #2 Stool Occult Blood #3 02/08/19 02/08/19 02/08/19 06:49 11:55 11:55 WBC RBC Hgb Hct MCV MCH MCHC RDW Std Deviation RDW Coeff of Sarahi Plt Count MPV Immature Gran % (Auto) Neut % (Auto) Lymph % (Auto) [place] % (Auto) Eos % (Auto) Baso % (Auto) Immature Gran # (Auto) Neut # (Auto) Lymph # (Auto) [place] # (Auto) Eos # (Auto) Baso # (Auto) Sodium Potassium Chloride Carbon Dioxide Anion Gap BUN Creatinine Est Cr Clr Drug Dosing Est GFR ( Amer) Est GFR (Non-Af Amer) BUN/Creatinine Ratio Glucose Estimat Average Glucose Hemoglobin A1c Lactate Calcium Magnesium Iron TIBC Transferrin Ferritin Total Bilirubin AST ALT Alkaline Phosphatase Troponin I Total Protein Albumin Globulin Albumin/Globulin Ratio Vitamin B12 324 Folate 11.36 TSH Stool Occult Bld Scrn Negative Stool Occult Blood Cancelled Stool Occult Blood #2 Cancelled Stool Occult Blood #3 Cancelled (1) UTI (urinary tract infection) Urinary tract infection type: site unspecified
[2019-02-08] MEDS ORDERED: VANCOMYCIN HCL 1,000 MG in SODIUM CHLORIDE 0.9% 250 ML IV SCH (15:00)
--- NOTE | 2019-02-08 18:13 | Consultation Report ---
DATE OF CONSULTATION: 02/08/2019 CONSULTATION FOR: Dr. Leggett. HISTORY OF PRESENT ILLNESS: The patient is 88 years old, is right-handed, is a current resident of [facility] and may be in transition to a more extended care facility according to what I can glean from the nursing staff today. Neurology was called to assess her agitation, confusion and dementia which has been present for a number of years. She is well known actually to JIM Suazo, of our practice in [place] and I began seeing her with [facility] back in 2014, at which point we had an 8-year history of increasing cognitive impairment. 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 She has never had much in the way of a gait disturbance except after she has had some fractures in her lower extremities and at times has used a walker and I think she does so in her current residence and there may be some urinary tract infections of recurrent type and some urinary incontinence, but the cognitive impairment preceded any gait disturbance and Neurology has really asked now to address the interpretation of a CAT scan, which is that of potential normal pressure hydrocephalus. She is currently in the hospital because of a mixed delirium probably due to urinary tract infection which has been partially treated, there may have been a reaction to mirtazapine or Omnicef and she has been on some prednisone. She is agitated to a low grade, pretty delusional, thinks at times she is in an airport that the nurses are stewardesses and when I came to see her, this was pretty much her status. Then when I revisited her an hour later, she was pretty lucid, knew she was in [facility], knew she was in [place], did not know the month, missed the date, was off by the day of the week, knew Mr. Lubin is president and realized that she had been acting "crazy" and was not sure as to why this had occurred. 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 She is also known to have vitamin D deficiency, osteopenia and apparently rheumatoid arthritis and pernicious anemia. MEDICATIONS AT HOME: Include aspirin, hydrocodone as needed, polyethylene glycol, extra strength Tylenol, amlodipine, Plavix, folic acid, diclofenac, oxybutynin, atorvastatin, calcium carbonate, lorazepam, mirtazapine, amoxicillin, prednisone and some of these are short term agents. ALLERGIES: SHE CLAIMS ALLERGIES TO CEFDINIR, MIRTAZAPINE WHICH IS NOT CLEARLY AN ALLERGY AND IS BASED PURELY UPON HER AGITATION WHICH MAY HAVE EMERGED AFTER IT WAS USED, CEPHALEXIN, CIPROFLOXACIN AND DIPHENHYDRAMINE AND I SUSPECT THE LATTER IS DUE TO THE ANTICHOLINERGIC EFFECTS. PAST SURGICAL HISTORY: She has had a tonsillectomy and total hip arthroplasty. FAMILY HISTORY: Noncontributory. There is no clear history of anyone else suffering from a clear dementia and it looks like both her father and mother at age 90 of "old age." SOCIAL HISTORY: Reveals her to be a retired [employer]. She is in a personal care facility and is not currently a smoker, never was and does not drink alcohol. REVIEW OF SYSTEMS: Could not be obtained from the patient today as she was initially agitated and then was a little tired and did not feel up to answering a lot of questions. PHYSICAL EXAMINATION: GENERAL: Examination performed on admission revealed she was well developed, well nourished, appears somewhat youthful for her stated age of 88. VITAL SIGNS: Blood pressure of 127/64, pulse 77, respirations were 21. She was afebrile. NECK: There were no carotid bruits. LUNGS: Clear. HEART: Had a regular rhythm with soft systolic murmur noted. ABDOMEN: Soft, nontender. EXTREMITIES: There was little or no peripheral edema and good peripheral pulses. NEUROLOGIC: Today, she has intact cranial nerves. Speech is clear. Eye movements are normal. She responds to visual threat. She can get up, although she has little proximal weakness or perhaps some apraxia arising from a chair. When she is up, she moves along pretty well, has good associated movements. There may be a slight shuffling of the gait and there is some simian posturing, but I think this is all due to normal aging rather than postulating a basal ganglia disorder. She gesticulates well with her hands. There is no tremor. Reflexes are hypoactive, but present. Toes are downgoing. No Dayana signs are seen. Muscle strength testing is grossly intact, although cooperation was limited and sensory examination reveals little vibratory loss in the lower extremities, but is not totally reliable in this regard. I reviewed the imaging data, which includes a CAT scan showing slightly disproportionate ventriculomegaly compared to the degree of cortical atrophy and some periventricular lucencies which I think are vascular rather than transependymal reabsorption of CSF. Basic laboratory studies are all outlined on the Internal Medicine notes and I will not review them further at this point. Again, as noted above, this woman has a cognitive impairment syndrome, likely vascular dementia with at most minimal gait disturbance consistent with her age and urinary incontinence. While the CT scan will inevitably raise the question of normal pressure hydrocephalus, the clinical picture does not and at this point, hopefully we can "put the normal pressure hydrocephalus issue to bed." Furthermore, there is no way that anyone would seriously consider putting a ventriculoperitoneal shunt in a woman of this age with her comorbidities. Neurology is going to sign off the case at this point and will be happy to take a look at her again if her neurologic status would change. I would suggest that perhaps Psychiatry look at her regarding some medications that might help tone down some of the hallucinations, but frankly I am not sure how much of this may not be driven by the prednisone and I would strongly suggest discontinuing this and often appropriate antibiotic treatment for the urinary tract infection. FAYED
[2019-02-08] MEDS: ASPIRIN 81 MG ECTAB PO SCH (19:39)
[2019-02-09 07:49] LABS: Creatinine Clr Calc Pharmacy 56.3 ml/min; Est GFR (African American) 91.7; Est GFR (Non-African American) 79.1
[2019-02-09] MEDS: CLOPIDOGREL BISULFATE 75 MG TAB PO SCH (08:13)
[2019-02-09] MEDS: HYDROCODONE/ACETAMOPHEN 5/325MG TAB PO SCH (08:13)
[2019-02-09] MEDS: predniSONE 10 MG TABLET PO SCH (08:13)
[2019-02-09] MEDS: ENOXAPARIN INJ 30 MG/0.3 ML SYR SQ SCH (08:14)
[2019-02-09] MEDS: AMLODIPINE BESYLATE 5 MG TAB PO SCH (08:14)
[2019-02-09] MEDS: FOLIC ACID 1 MG TAB PO SCH (08:15)
[2019-02-09] MEDS: DAPTOmycin 325 MG in SYRINGE 0 ML IV SCH (08:24)
--- NOTE | 2019-02-09 16:26 | Hospitalist Progress Note ---
Date of Service February 09, 2019 Assessment & Plan (1) Metabolic encephalopathy: (2) Bilateral lower leg cellulitis: (3) UTI (urinary tract infection): less irritable, more pleasant and cooperative Urine culture 02/04: Enterococcus faecalis Blood cultures: negative so far changed Vanco to Daptomycin to prevent kidney injury mental status and leg cellulits improving monitor prednisone discontineud (4) Anemia: H/H decreased to 9.6 and 31.4 /10 was 11.3 and 36.8 pt denies s/sx of bleeding Hg 9.3 iron 65 no signs of bleeding (5) CVA (cerebral vascular accident): hx of CVA continue ASA, plavix, statin (6) HTN (hypertension): blood pressure stable continue amlodipine with parameters (7) Arthritis: APAP prn pt takes [place] 5/325 , reduced to daily, then taper off (8) Vascular dementia: mood stable CT head: unchanged, no acute abnormality, chronic ventricular prominence unable to rule out NPH consult neurology given abd CT: not felt to be NPH (9) DVT prophylaxis: Lovenox SQ Disposition: to be determined; pt resides at [facility], case management consulted Follow up: PCP Dr. Hollingsworth upon discharge Subjective ff up for UTI, Cellulitis seen with MORTEZA Goodman throughout whole encounter more pleasant, less irritable confused denies pain today, no urinary symptoms no other symptoms Review of Systems Review of Systems: All systems reviewed & are unremarkable except as noted in HPI & below Physical Exam Physical Exam: General- oriented x 0, not in distress, speaks in sentences with no effort or accessory muscle use Eyes- anicteric Neck- no JVD Lungs- clear breath sounds bilaterally Heart- normal rate, regular rhythm; no murmurs Abdomen- normal bowel sounds, nondistended, soft, nontender Extremities- no pretibial edema, no calf tenderness lower leg- (+) moderate erythema- improving, no edema/warmth/tenderness Neuro- alert, oriented x 0; no gross focal neurologic deficits Skin- warm & dry Results & Data Vital Signs (Past 12 Hours) Vital Signs Temp Pulse Resp BP Pulse Ox 02/09/19 15:11 36.8 C 73 20 127/72 95 02/09/19 07:00 36.9 C 69 20 161/76 H 94 Laboratory Results Laboratory Results - last 24 hr 08/04/19 07:08 Creatinine 0.64 Est Cr Clr Drug Dosing 56.3 Est GFR ( Amer) 91.7 Est GFR (Non-Af Amer) 79.1 (1) UTI (urinary tract infection) Urinary tract infection type: site unspecified
[2019-02-09] MEDS: ASPIRIN 81 MG ECTAB PO SCH ×2 (20:38→21:47)
[2019-02-10 07:56] LABS: Creatinine Clr Calc Pharmacy 51.5 ml/min; Est GFR (Non-African American) 76.8
[2019-02-10] MEDS ORDERED: POLYETHYLENE (MIRALAX) 17 GM PACK PO SCH (09:00)
[2019-02-10] MEDS: DAPTOmycin 325 MG in SYRINGE 0 ML IV SCH (09:05)
[2019-02-10] MEDS: HYDROCODONE/ACETAMOPHEN 5/325MG TAB PO SCH (09:05)
[2019-02-10] MEDS: AMLODIPINE BESYLATE 5 MG TAB PO SCH (09:06)
[2019-02-10] MEDS: FOLIC ACID 1 MG TAB PO SCH (09:06)
[2019-02-10] MEDS: CLOPIDOGREL BISULFATE 75 MG TAB PO SCH (09:06)
[2019-02-10] MEDS: ENOXAPARIN INJ 30 MG/0.3 ML SYR SQ SCH (09:07)
--- NOTE | 2019-02-10 09:41 | Hospitalist Progress Note ---
Date of Service February 10, 2019 Assessment & Plan (1) Metabolic encephalopathy: (2) Bilateral lower leg cellulitis: (3) UTI (urinary tract infection): less irritable, more pleasant and cooperative Urine culture 02/04: Enterococcus faecalis Blood cultures: negative so far changed Vanco to Daptomycin to prevent kidney injury- Day #4 mental status and leg cellulitis continues to improve continue Daptomycin transition to Augmentin x 5 days on discharge monitor prednisone discontinued (4) Anemia: H/H decreased to 9.6 and 31.4 01/15 was 11.3 and 36.8 pt denies s/sx of bleeding Hg 9.3 iron 65 no signs of bleeding (5) CVA (cerebral vascular accident): hx of CVA continue ASA, plavix, statin (6) HTN (hypertension): blood pressure stable continue amlodipine with parameters (7) Arthritis: APAP prn pt takes [place] 5/325 , reduced to daily, then taper off to every other day, every 3 days, etc. then STOP (8) Vascular dementia: mood stable CT head: unchanged, no acute abnormality, chronic ventricular prominence unable to rule out NPH consult neurology given abd CT: not felt to be NPH (9) DVT prophylaxis: Lovenox SQ Disposition: anticipate transition to [facility] tomorrow. Follow up: PCP Dr. Hollingsworth upon discharge Subjective ff up for UTI, cellulitis seen resting in bed, comfortable RN Maxine at bedside throughout whole encounter denies leg pain, or urinary symptoms, abdominal pain no other symptoms Review of Systems Review of Systems: All systems reviewed & are unremarkable except as noted in HPI & below Physical Exam Physical Exam: General- oriented x 0, not in distress, speaks in sentences with no effort or accessory muscle use Eyes- anicteric Neck- no JVD Lungs- clear BS BL Heart- normal rate, regular rhythm; no murmurs Abdomen- normal bowel sounds, nondistended, soft, nontender Extremities- lower leg- less erythema, no warmth, no tenderness no pretibial edema, no calf tenderness Neuro- alert, oriented x 0; no gross focal neurologic deficits Skin- warm & dry Results & Data Vital Signs (Past 12 Hours) Vital Signs Temp Pulse Resp BP Pulse Ox 02/10/19 07:00 36.9 C 60 18 166/75 H 96 Laboratory Results Laboratory Results - last 24 hr 02/10/19 06:50 Creatinine 0.70 Est Cr Clr Drug Dosing 51.5 Est GFR ( Amer) 89.0 Est GFR (Non-Af Amer) 76.8 (1) UTI (urinary tract infection) Urinary tract infection type: site unspecified
[2019-02-10] MEDS: ASPIRIN 81 MG ECTAB PO SCH (20:27)
[2019-02-11 07:10] LABS: Est GFR (African American) 89.9; Est GFR (Non-African American) 77.6
[2019-02-11] MEDS: ENOXAPARIN INJ 30 MG/0.3 ML SYR SQ SCH (08:12)
[2019-02-11] MEDS: CLOPIDOGREL BISULFATE 75 MG TAB PO SCH (08:12)
[2019-02-11] MEDS: AMLODIPINE BESYLATE 5 MG TAB PO SCH (08:12)
[2019-02-11] MEDS: FOLIC ACID 1 MG TAB PO SCH (08:12)
[2019-02-11] MEDS ORDERED: DAPTOmycin 225 MG in SYRINGE 0 ML IV SCH (09:00)
--- NOTE | 2019-02-11 22:54 | Hospitalist Progress Note ---
Date of Service February 11, 2019 Assessment & Plan (1) Metabolic encephalopathy: (2) Bilateral lower leg cellulitis: (3) UTI (urinary tract infection): per admitting service notes: This is a 88-year-old female who has a significant past medical history of CVA, vascular dementia, hypertension, rheumatoid arthritis, osteoarthritis, vitamin D deficiency, osteopenia who presents to [facility] ED from personal care facility secondary to worsening confusion and failed outpatient treatment for UTI and cellulitis. initially presented to ED, treated with Omnicef but developed a rash, changed to Amoxicillin which was taken for 2 days, then brought back to the ER for worseni ng confusion, severe agitation Urine culture 02/04/19: Urine culture 02/04: Enterococcus faecalis sensitive to Ampicillin, Cipro, Dapto, Levaquin Blood cultures: negative so far placed on Daptomycin for both Enterococcus UTI and Lower leg cellulitis with MRSA coverage received Daptomycin x 5 days Prednisone taper given at the ED for possible Omnicef rash discontinued as this may also have contributed to agitation mental status and leg cellulitis improved significantly during admission back to baseline mental status- confused but cooperative overall transition to Augmentin 875mg BID and Doxycycline 100mg BID x 5 days to complete 10 days total antibiotic course (4) Anemia: H/H decreased to 9.6 and 31.4 7/10 was 11.3 and 36.8 pt denies s/sx of bleeding Hg 9.3 iron 65 no signs of bleeding monitor CBC as outpatient (5) CVA (cerebral vascular accident): hx of CVA continue ASA, plavix, statin (6) HTN (hypertension): blood pressure stable continue amlodipine (7) Arthritis: APAP prn pt takes [place] 5/325 TID at the SNF, not ideal forn 88 year old patient with dementia, patient does not complain of pain reduced to daily, then taper off to every other day, every 3 days, etc. then STOP (8) Vascular dementia: mood stable CT head: unchanged, no acute abnormality, chronic ventricular prominence unable to rule out NPH consulted neurology given abnormal CT head: not felt to be NPH, no further work up recommended (9) DVT prophylaxis: Lovenox SQ was given Disposition: transition to [facility] Follow up: PCP Dr. Hollingsworth upon discharge as outlined in DC instructions Subjective delayed entry date of service as noted above seen resting in bedside chair calm, cooperative, pleasantly confused states she feels fine overall denies pain no other symptoms states she is ready for discharge Review of Systems Review of Systems: All systems reviewed & are unremarkable except as noted in HPI & below Physical Exam Physical Exam: General- oriented x 0, not in distress, speaks in sentences with no effort or accessory muscle use Eyes- anicteric Neck- no JVD Lungs- clear BS BL no rales/wheezes Heart- normal rate, regular rhythm; no murmurs Abdomen- normal bowel sounds, nondistended, soft, nontender Extremities- lower legs: trace edema, no erythema, no warmth, no tenderness Neuro- alert, oriented x 0; no gross focal neurologic deficits Skin- warm & dry Results & Data Vital Signs (Past 12 Hours) Vital Signs Temp Pulse Pulse Resp BP BP Pulse Ox 02/11/19 14:33 36.8 C 63 60 18 157/66 H 109/63 93 Laboratory Results all noted and reviewed (1) UTI (urinary tract infection) Urinary tract infection type: site unspecified
[2019-02-12] MEDS ORDERED: HYDROCODONE/ACETAMOPHEN 5/325MG TAB PO SCH (09:00)
--- NOTE | 2019-02-12 10:43 | Discharge Summary ---
Date of Service February 12, 2019 Admission HPI Per Admitting Provider This is a 88-year-old female who has a significant past medical history of CVA, vascular dementia, hypertension, rheumatoid arthritis, osteoarthritis, vitamin D deficiency, osteopenia who presents to [facility] ED from personal care facility secondary to worsening confusion and failed outpatient treatment for UTI and cellulitis. Patient was seen in [facility] ED on 02/04 secondary to increased confusion in which she was diagnosed with a UTI. She was placed on Omnicef. She presented back to [facility] ED on 02/05 secondary to worsening confusion and rash which was felt to be possibly secondary to Omnicef or mirtazapine (this was given ORTHOPEDIC NURSE PRACTITIONER). The Omnicef was switched to amoxicillin and she was placed on prednisone taper and discharged back to personal care. Patient represents today due to having increasing confusion and being combative with staff and residents. Patient is able to answer questions appropriately but unsure reliability. Family friend/c aregiver is at bedside. She elicits that her right and left lower extremity have been becoming increasingly red over the past 3 weeks. She was seen here in [facility] ED on 01/15 for a possible right lower extremity cellulitis and was treated with doxycycline and Omnicef. She overall feels her right leg has improved but now has significantly increasing warmth and redness to the left lower extremity. There is also noticed increased confusion. Upon questioning patient she denies feeling overall fevers chills or sweats but states, "my legs are feverish." She denies any recent falls, syncope, lightheadedness, dizziness, chest pain, shortness of breath, cough, nausea, vomiting, diarrhea, dysuria, increased urgency or frequency with urination, hematuria. She states overall her appetite has been okay. Of significant note it was noticed that patient's urine culture grew enterococcus which was not susceptible to Omnicef, but susceptible to amoxicillin. She has only had 2 doses of amoxicillin. Admission Exam Per Admitting Provider Physical Exam: Gen: WD/WN, elderly, female, sitting up in bed, pleasantly confused, answers questions appropriately, NAD, conversing easily Head: Normocephalic, Atraumatic Eyes: Sclera normal, no conjunctival injection, PERRLA, EOMI ENT: Gross hearing intact, normal pharynx, mucous membranes moist Neck: supple, no adenopathy, No JVD, no bruit, Resp: Clear to auscultation b/l, no wheeze, rales, rhonchi. Normal insp/exp effort, no accessory muscle use CV: Regular rate, regular rhythm, soft 1/6 murmur noted best at cardiac apex, no rub, gallop, or ectopy Abd: +BS x 4, soft, nontender, nondistended Musculoskeletal: moves extremities active rom x 4, strength intact, good preschool adviser strength Extremities: Bilateral venous stasis changes with evidence of left lower extremity and right lower extreme a cellulitis left > right, extending approximately to knee, warmth, redness, well-demarcated. Bilateral pedal pulses +1 equal, bilateral PT pulses +1 and equal, bilateral popliteal pulses +1 and equal, trace edema bilaterally left greater than right, no palpable cord Skin: warm, dry, no rash, negative turgor, cap refill < 2sec Neuro: Alert and oriented to self, able to converse easily but confused, speech normal, good mood/affect, cran nerve 2-12 intact grossly : deferred Principal Diagnosis WORSENING CONFUSION SECONDARY TO ENTEROCOCCUS UTI, BILATERAL LOWER LEG CELLULITIS Discharge Exam General- oriented x 0, not in distress, speaks in sentences with no effort or accessory muscle use Eyes- anicteric Neck- no JVD Lungs- clear BS BL no rales/wheezes Heart- normal rate, regular rhythm; no murmurs Abdomen- normal bowel sounds, nondistended, soft, nontender Extremities- lower legs: trace edema, no erythema, no warmth, no tenderness Neuro- alert, oriented x 0; no gross focal neurologic deficits Skin- warm & dry Discharge Data Allergies Allergy/AdvReac Type Severity Reaction Status Date / Time cefdinir Allergy Intermediate See comment Verified 02/07/19 14:34 mirtazapine Allergy Intermediate See comment Verified 02/07/19 14:34 cephalexin [From Keflex] Allergy Unknown Unknown Verified 02/07/19 14:34 ciprofloxacin [From Cipro] Allergy Unknown Unknown Verified 02/07/19 14:34 diphenhydramine AdvReac Intermediate "increases Verified 02/07/19 14:34 dementia" Consultations 02/07/19 14:37 ED Decision to Admit Stat 02/07/19 16:35 Consult Case Management - Discharge Planning Routine Consult Neurology Routine Ordered Studies 02/07/19 14:10 CT head/brain wo con Stat CT head/brain wo con CLINICAL HISTORY: confusion COMPARISON STUDY: 02/04/2019 TECHNIQUE: Axial CT of the brain is performed from the vertex to the skull base. IV contrast was not administered for this examination. A dose lowering technique was utilized adhering to the principles of ALARA. CT DOSE: 537.48 mGy.cm FINDINGS: No intra or extra-axial mass lesions are visualized. There is no CT evidence of acute cortical infarction. There is no evidence of midline shift. There is no acute hemorrhage. No calvarial fractures are visualized. There are patchy white matter hypodensities likely on a small vessel basis. There is persistent ventricular dilatation unchanged from the preceding study. The dilatation is slightly out of proportion to degree of atrophy and normal pressure hydrocephalus cannot be excluded There is no evidence of acute sinusitis IMPRESSION: 1. No acute intracranial findings 2. Persistent ventricular dilatation unchanged from the prior study. Hospital Course (1) Metabolic encephalopathy: (2) Bilateral lower leg cellulitis: (3) UTI (urinary tract infection): per admitting service notes: This is a 88-year-old female who has a significant past medical history of CVA, vascular dementia, hypertension, rheumatoid arthritis, osteoarthritis, vitamin D deficiency, osteopenia who presents to [facility] ED from personal care facility secondary to worsening confusion and failed outpatient treatment for UTI and cellulitis. initially presented to ED, treated with Omnicef but developed a rash, changed to Amoxicillin which was taken for 2 days, then brought back to the ER for worsening confusion, severe agitation Urine culture 02/04/19: Urine culture 02/04: Enterococcus faecalis sensitive to Ampicillin, Cipro, Dapto, Levaquin Blood cultures: negative so far placed on Daptomycin for both Enterococcus UTI and Lower leg cellulitis with MRSA coverage received Daptomycin x 5 days Prednisone taper given at the ED for possible Omnicef rash discontinued as this may also have contributed to agitation mental status and leg cellulitis improved significantly during admission back to baseline mental status- confused but cooperative overall transition to Augmentin 875mg BID and Doxycycline 100mg BID x 5 days to complete 10 days total antibiotic course (4) Anemia: H/H decreased to 9.6 and 31.4 /10 was 11.3 and 36.8 pt denies s/sx of bleeding Hg 9.3 iron 65 no signs of bleeding monitor CBC as outpatient (5) CVA (cerebral vascular accident): hx of CVA continue ASA, plavix, statin (6) HTN (hypertension): blood pressure stable continue amlodipine (7) Arthritis: APAP prn pt takes Herndon 5/325 TID at the SNF, not ideal forn 88 year old patient with dementia, patient does not complain of pain reduced to daily, then taper off to every other day, every 3 days, etc. then STOP (8) Vascular dementia: mood stable CT head: unchanged, no acute abnormality, chronic ventricular prominence unable to rule out NPH consulted neurology given abnormal CT head: not felt to be NPH, no further work up recommended (9) DVT prophylaxis: Lovenox SQ was given Disposition: transition to [facility] Follow up: PCP Dr. Hollingsworth upon discharge as outlined in DC instructions Total Time Total Time Spent Total Time Spent (In Minutes): 40 MINUTES Discharge Plan Discharge Items Patient Disposition: Transfer Alf Fac Reason For Visit: UTI,CELLULITIS,ENCEPHALOPATHY,FAILED OUTPT TX Discharge Diagnosis: UTI, Enterococcus faecalis; lower leg cellulitis Discharge Goals: Diagnostic testing and Therapeutic intervention Activity: As commented below Activity Comment: Resume activity gradually as tolerated, fall precautions, always with assistance Lifting: Wait until after follow-up appointment Exercise Comment: Continue PT/OT Non-emergency contact: Primary Care Provider Call non-emergency contact if: you have any medication questions, your symptoms worsen, your pain is not controlled, your pain is worsening and you have a fever Diet: Heart Healthy Addtl Provider Instructions: Patient to continue Augmentin 875 mg p.o. twice daily and doxycycline 90 mg p.o. twice daily x5 more days. Please order probiotic daily. Please monitor lower leg daily. Ensure adequate daily fluid intake. Repeat urinalysis after antibiotic course to confirm resolution of UTI. Continue to taper off Herndon, then discontinue. Call primary care physician or return to the ER immediately if with worsening of symptoms, Changes in mental status, fever/chills, urinary symptoms, increasing lower leg edema/tenderness/erythema/warmth. Follow-up with [facility] primary care physician Dr. Aviva Abel on Thursday, February 14, 2019 at 12:45 PM At the [facility]. Prescriptions: New hydrocodone-acetaminophen [Herndon] 5-325 mg Tablet 1 tab PO Q2D 3 Days Qty: 3 RF: 0 amoxicillin-pot clavulanate [Augmentin] 875-125 mg tablet 1 tab PO Q12H 5 Days Qty: 10 RF: 0 doxycycline hyclate 100 mg capsule 100 mg PO BID 5 Days Qty: 10 RF: 0 lorazepam 0.5 mg Tablet 0.5 mg PO DAILY PRN (Reason: Anxiety) 10 Days Qty: 10 RF: 0 Continued aspirin [Aspirin Low Dose] 81 mg Tablet,Delayed Release (Dr/Ec) 81 mg PO PM Qty: 0 RF: 0 polyethylene glycol 3350 17 gram Powder In Packet 17 g PO 3XWK Qty: 0 RF: 0 oxybutynin chloride 10 mg Tablet Extended Release 24hr 10 mg PO QAM Qty: 0 RF: 0 clopidogrel 75 mg Tablet 75 mg PO QAM Qty: 0 RF: 0 amlodipine 5 mg Tablet 5 mg PO QAM Qty: 0 RF: 0 acetaminophen [Tylenol Extra Strength] 500 mg Tablet 500 mg PO Q6H PRN (Reason: Pain/fever) Qty: 0 RF: 0 folic acid 1 mg Tablet 1 mg PO QAM Qty: 0 RF: 0 ondansetron 8 mg Tablet,Disintegrating 8 mg PO Q8H PRN (Reason: Nausea) Qty: 0 RF: 0 Calmoseptine 0.44-20.6 % Ointment 1 applic TOPICAL BID PRN (Reason: irritation) RF: 0 atorvastatin 40 mg Tablet 40 mg PO PM RF: 0 calcium carbonate [Antacid Extra-Strength] 300 mg (750 mg) Tablet,Chewable 300 mg PO DIRECTED PRN (Reason: Indigestion) RF: 0 mirtazapine 15 mg Tablet 15 mg PO HS RF: 0 Discontinued hydrocodone-acetaminophen 5-325 mg Tablet 1 tab PO TID Qty: 0 RF: 0 diclofenac sodium 1 % Gel 2 g TOPICAL BID Qty: 0 RF: 0 amoxicillin 500 mg capsule 500 mg PO BID 10 Days Qty: 20 RF: 0 prednisone 20 mg tablet 20 mg PO QAM RF: 0 Stand-Alone Forms: Counts Include [facility] Beds At [facility] Discharge Orders: Discharge Order (Routine); Ordered 02/11/19 Ordered By: Bandar Leggett Skilled Items Patient informed of condition?: Yes DNR: No Discharge Level of Care: Skilled Communicable Disease: No Discharge Prognosis: Stable Admission Data Admit Date/Time: 02/07/19 15:20 Attending Provider: Bandar Leggett Admit Provider: Ingrid Kenney Primary Care Provider: Eleuterio Dallas,[facility] Other Providers: Aleksey Diop Service: Telemetry Medical Other Interventions: Discharge Summary Assessment (RN) Last Done: 02/11/19 14:33 DC Date/Time DO NOT enter until pt leaves facility: 02/11/19 14:35
== END 2019-02-11 14:35 | DRG 602 ==
LOC: ED 13:40 → 2W 15:20